=== PATIENT | male | born 1955 | race Caucasian/White ===

== ENCOUNTER 2022-07-20 09:50 | Outpatient (OUT) | payer MEDICARE, MEDICAID, SELFPAY ==
--- NOTE | 2022-07-20 10:35 | MR_ITS ---
[address] [address] Patient Name: NITESH CALZADA MRN: [id number] date: 1955 Sex: M Assigned Patient Location: MRI Current Patient Location: MRI Accession/Order Number: [id number] Exam Date: 07/20/2022 10:45 Report Date: 07/20/2022 11:49 At the request of: ROME VERDUZCO Procedure: MR lumbar spine wo con EXAM: MRI of the lumbar spine without IV gadolinium contrast. REASON FOR EXAM: Acute lumbar back pain with bilateral lower extremity weakness. COMPARISON: CT scan dated 07/31/2018 FINDINGS: No acute lumbar spine fractures, acute malalignment or acute abnormal marrow signal. No spinal canal mass, hematoma or fluid collection. L1 chronic compression fracture with moderate height loss. L2 chronic compression fracture with mild height loss. L4 chronic compression fracture with mild height loss. L2 vertebral body hemangioma. Mild posterior disc bulges at the L1-L2, L2-L3 and L3-L4 levels. Mild L2-L3 and L3-L4 spinal canal stenoses. No other substantial spinal canal stenoses. Mild left L4-5 and L5-S1 neural foraminal stenoses. Mild right L4-5 and L5-S1 neural foraminal stenoses. No other substantial neural foraminal stenoses. Remainder unremarkable. IMPRESSION: 1. No acute lumbar spine abnormalities. 2. Chronic L1, L2 and L4 compression fractures. 3. No moderate or high-grade spinal canal or neural foraminal stenoses. Electronically authenticated by: BELKIS JACOME Date: 07/20/2022 11:49
== END 2022-07-20 09:51 ==
LOC: MRI 09:59
PROVIDERS: PCP Family Medicine; Visit Provider Family Medicine
DX: M99.83 Other biomechanical lesions of lumbar region (principal); M48.56XA Collapsed vertebra, not elsewhere classified, lumbar region, initial encounter for fracture
CPT/HCPCS: 72148

== ENCOUNTER 2022-09-06 16:47 | Inpatient (IN) | payer MEDICARE, MEDICAID, SELFPAY ==
[2022-09-06] VITALS (13 sets, daily range): BP systolic 138–183; BP diastolic 84–113; PULSE 103–125; RESP 18–20; TEMP 36.7–37.1; O2SAT 90–97; BMI 25.6; BMI 24.5
--- NOTE | 2022-09-06 17:00 | ED_ITS ---
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 He states that he fell yesterday was on the floor most the evening and was finally able to get to a cell phone call for assistance today. He lives by himself. He is a patient of Dr. Lopez. He says he normally has some low but left-sided weakness of his left lower extremity from a childhood injury area and he has not had back surgery. He has an abrasion on the dorsal surface of his right ankle he said from dropping a ribbon cleaner or vacuum sweeper on his leg. He's not been able to ambulate at all today and I said lives by himself and was unattended and was incontinent of stool. As noted on his vital signs he is tachycardic and appears acute on chronically ill. His pulse ox ninety-six percent on room air and he does not use supplemental oxygen. He denies any headache or chest pain or difficulty breathing. Says he was too weak to get off the floor. Related Data Home Medications Medication Instructions Recorded Confirmed albuterol sulfate 90 mcg/actuation 2 puff inhalation Q4H PRN 09/06/22 09/06/22 aerosol inhaler (Ventolin HFA) shortness of breath or wheezing alprazolam 0.5 mg tablet 0.5 mg PO TID PRN anxiety 09/06/22 09/06/22 carisoprodol 350 mg tablet 350 mg PO TID PRN muscle pain 09/06/22 09/06/22 fluticasone fur. 100 mcg-umeclid 1 inh inhalation DAILY 09/06/22 09/06/22 62.5 mcg-vilant 25 mcg inhalat.powder (Trelegy Ellipta) hydrocodone 5 mg-acetaminophen 325 1 tab PO Q4H PRN pain 09/06/22 09/06/22 mg tablet pregabalin 300 mg capsule 300 mg PO BID 09/06/22 09/06/22 sacubitril 97 mg-valsartan 103 mg 1 tab PO BID 09/06/22 09/06/22 tablet (Entresto) Allergies Allergy/AdvReac Type Severity Reaction Status Date / Time No Known Drug Allergies Allergy Verified 09/06/22 16:50 Exam Constitutional Vital Signs, click to edit/add: Last Vital Signs Temp 98.7 F 09/06/22 17:24 Pulse 125 H 09/06/22 16:50 Resp 20 09/06/22 16:50 BP 168/104 H 09/06/22 21:15 Pulse Ox 96 09/06/22 16:50 O2 Del Method Room Air 09/06/22 17:25 Course Vital Signs Vital signs: Vital Signs Pulse Rate 125 H 09/06/22 16:50 Respiratory Rate 09/06/22 16:50 Blood Pressure 138/95 H 09/06/22 16:50 Pulse Oximetry 96 09/06/22 16:50 Oxygen Delivery Method Room Air 09/06/22 16:50 Temperature 98.7 F 09/06/22 17:24 Pulse Rate 125 H 09/06/22 16:50 Respiratory Rate 09/06/22 16:50 Blood Pressure 168/104 H 09/06/22 21:15 Pulse Oximetry 96 09/06/22 16:50 Oxygen Delivery Method Room Air 09/06/22 17:25 Medical Decision Making Lab Data Labs: Lab Results 09/06/22 09/06/22 Range/Units 17:25 20:11 WBC 8.0 (4.0-11.0) 10^3/uL RBC 3.70 L (4.70-6.10) 10^6/uL Hgb 13.0 L (14.0-18.0) g/dL Hct 37.8 L (42.0-54.0) % MCV 102.2 H (80.0-94.0) fL MCH 35.1 H (25.9-34.0) pg MCHC 34.4 (29.9-35.2) g/dL RDW 14.0 (11.0-15.0) % Plt Count 121 L (150-450) 10^3/uL MPV 9.8 (9.5-13.5) fL Neut % (Auto) 81.7 H (43.0-75.0) % Lymph % (Auto) 11.6 L (20.5-60.0) % [place] % (Auto) 5.9 (1.7-12.0) % Eos % (Auto) 0.1 L (0.9-7.0) % Baso % (Auto) 0.2 (0.2-2.0) % Neut # (Auto) 6.6 H (1.4-6.5) 10^3/uL Lymph # (Auto) 0.9 L (1.2-3.8) 10^3/uL [place] # (Auto) 0.5 (0.3-0.8) 10^3/uL Eos # (Auto) 0.0 (0.0-0.7) 10^3/uL Baso # (Auto) 0.0 (0.0-0.1) 10^3/uL Abs Immat Gran (auto) 0.04 H (0.00-0.03) 10^3/uL Imm/Tot Granulo (auto) 0.5 (0.0-0.5) % Sodium 129 L (136-145) mmol/L Potassium 3.9 (3.5-5.1) mmol/L Chloride 91 L (98-107) mmol/L Carbon Dioxide 25.5 (21.0-32.0) mmol/L Anion Gap 16.4 BUN 10.0 (7.0-18.0) mg/dL Creatinine 0.98 (0.70-1.30) mg/dL Est GFR ( Amer) >60 (>=60) Est GFR (Non-Af Amer) >60 (>=60) BUN/Creatinine Ratio 10.2 Glucose 92 (74-106) mg/dL Lactate 3.5 H* (0.4-2.0) mmol/L Calcium 9.0 (8.5-10.1) mg/dL Total Bilirubin 1.0 (0.2-1.0) mg/dL AST 47 H (15-37) U/L ALT 55 (16-63) U/L Alkaline Phosphatase 84 (46-116) U/L Total Creatine Kinase 816 H* (39-308) U/L CK-MB (CK-2) 3.24 (<=3.60) ng/mL Myoglobin 320 H* (16-96) ng/mL Troponin I High Sens 13.4 (4.0-76.1) pg/mL Total Protein 7.5 (6.4-8.2) g/dL Albumin 4.1 (3.4-5.0) g/dL Globulin 3.4 g/dL Albumin/Globulin Ratio 1.2 TSH 0.631 (0.358-3.740) uIU/mL Urine Color Lt. yellow (YELLOW) Urine Clarity Clear (CLEAR) Urine pH 6.5 (5.0-9.0) Ur Specific [place] <=1.005 A (1.005-1.025) Urine Protein Negative (NEG/TRACE) mg/dL Urine Glucose (UA) Negative (NEGATIVE) mg/dL Urine Ketones 15 A (NEGATIVE) mg/dL Urine Occult Blood Large A (NEGATIVE) Urine Nitrite Negative (NEGATIVE) Urine Bilirubin Negative (NEGATIVE) Urine Urobilinogen 0.2 (0.2-1.0) EU/dL Ur Leukocyte Esterase Trace A (NEGATIVE) Urine RBC 0-2 (0-2) #/HPF Urine WBC None seen (NONE SEEN) #/HPF Ur Squamous Epith Cells Rare (NONE/RARE) #/LPF Urine Crystals None seen (None Seen) #/HPF Urine Bacteria None seen (NONE SEEN) #/HPF Urine Casts None seen (NONE SEEN) #/LPF Urine Mucus None seen (NONE SEEN) Ur Culture Indicated? No Ethanol Quant <3 mg/dL Discharge Plan Discharge Chief Complaint: Extremity Injury, Lower Clinical Impression: Traumatic hematoma of right ankle, Falls frequently, Weakness, Elevated lactic acid level, Pneumonia Patient Disposition: Admitted As Inpatient Time of Disposition Decision: 21:00 Condition: Good Prescriptions / Home Meds: No Action albuterol sulfate [Ventolin HFA] 90 mcg/actuation HFA aerosol inhaler 2 puff INHALATION Q4H PRN (Reason: shortness of breath or wheezing) alprazolam 0.5 mg tablet 0.5 mg PO TID PRN (Reason: anxiety) carisoprodol 350 mg tablet 350 mg PO TID PRN (Reason: muscle pain) Trelegy Ellipta 100-62.5-25 mcg blister with device 1 inh INHALATION DAILY hydrocodone-acetaminophen 5-325 mg tablet 1 tab PO Q4H PRN (Reason: pain) pregabalin 300 mg capsule 300 mg PO BID Entresto 97-103 mg tablet 1 tab PO BID Documented by User: Sydnie Slater MD 09/06/22 22:34 HPI - General Adult General Chief complaint: Extremity Injury, Lower Stated complaint: FALL Time Seen by Provider: 09/06/22 17:00 Related Data Home Medications Medication Instructions Recorded Confirmed albuterol sulfate 90 mcg/actuation 2 puff inhalation Q4H PRN 09/06/22 09/06/22 aerosol inhaler (Ventolin HFA) shortness of breath or wheezing alprazolam 0.5 mg tablet 0.5 mg PO TID PRN anxiety 09/06/22 09/06/22 carisoprodol 350 mg tablet 350 mg PO TID PRN muscle pain 09/06/22 09/06/22 fluticasone fur. 100 mcg-umeclid 1 inh inhalation DAILY 09/06/22 09/06/22 62.5 mcg-vilant 25 mcg inhalat.powder (Trelegy Ellipta) hydrocodone 5 mg-acetaminophen 325 1 tab PO Q4H PRN pain 09/06/22 09/06/22 mg tablet pregabalin 300 mg capsule 300 mg PO BID 09/06/22 09/06/22 sacubitril 97 mg-valsartan 103 mg 1 tab PO BID 09/06/22 09/06/22 tablet (Entresto) Allergies Allergy/AdvReac Type Severity Reaction Status Date / Time No Known Drug Allergies Allergy Verified 09/06/22 16:50 Exam Constitutional Vital Signs, click to edit/add: Last Vital Signs Temp 98.7 F 09/06/22 17:24 Pulse 125 H 09/06/22 16:50 Resp 20 09/06/22 16:50 BP 168/104 H 09/06/22 21:15 Pulse Ox 96 09/06/22 16:50 O2 Del Method Room Air 09/06/22 17:25 Course Vital Signs Vital signs: Vital Signs Pulse Rate 125 H 09/06/22 16:50 Respiratory Rate 20 09/06/22 16:50 Blood Pressure 138/95 H 09/06/22 16:50 Pulse Oximetry 96 09/06/22 16:50 Oxygen Delivery Method Room Air 09/06/22 16:50 Temperature 98.7 F 09/06/22 17:24 Pulse Rate 125 H 09/06/22 16:50 Respiratory Rate 20 09/06/22 16:50 Blood Pressure 168/104 H 09/06/22 21:15 Pulse Oximetry 96 09/06/22 16:50 Oxygen Delivery Method Room Air 09/06/22 17:25 Medical Decision Making MDM Narrative Medical decision making narrative: Patient signed out to me by Dr. Nieto awaiting CT scan results. Patient's CT scan of the brain is unremarkable. He was given 2 L of normal saline. pt remains weak and is tachycardic. Urinalysis was obtained and unremarkable. The patient was started on Antibiotics for pneumonia. Lactic acid level was repeated and is pending. Patient was discussed with hospitalist for admission. Lab Data Lab results reviewed: Yes I reviewed the patient's lab results Labs: Lab Results 09/06/22 09/06/22 Range/Units 17:25 20:11 WBC 8.0 (4.0-11.0) 10^3/uL RBC 3.70 L (4.70-6.10) 10^6/uL Hgb 13.0 L (14.0-18.0) g/dL Hct 37.8 L (42.0-54.0) % MCV 102.2 H (80.0-94.0) fL MCH 35.1 H (25.9-34.0) pg MCHC 34.4 (29.9-35.2) g/dL RDW 14.0 (11.0-15.0) % Plt Count 121 L (150-450) 10^3/uL MPV 9.8 (9.5-13.5) fL Neut % (Auto) 81.7 H (43.0-75.0) % Lymph % (Auto) 11.6 L (20.5-60.0) % [place] % (Auto) 5.9 (1.7-12.0) % Eos % (Auto) 0.1 L (0.9-7.0) % Baso % (Auto) 0.2 (0.2-2.0) % Neut # (Auto) 6.6 H (1.4-6.5) 10^3/uL Lymph # (Auto) 0.9 L (1.2-3.8) 10^3/uL [place] # (Auto) 0.5 (0.3-0.8) 10^3/uL Eos # (Auto) 0.0 (0.0-0.7) 10^3/uL Baso # (Auto) 0.0 (0.0-0.1) 10^3/uL Abs Immat Gran (auto) 0.04 H (0.00-0.03) 10^3/uL Imm/Tot Granulo (auto) 0.5 (0.0-0.5) % Sodium 129 L (136-145) mmol/L Potassium 3.9 (3.5-5.1) mmol/L Chloride 91 L (98-107) mmol/L Carbon Dioxide 25.5 (21.0-32.0) mmol/L Anion Gap 16.4 BUN 10.0 (7.0-18.0) mg/dL Creatinine 0.98 (0.70-1.30) mg/dL Est GFR ( Amer) >60 (>=60) Est GFR (Non-Af Amer) >60 (>=60) BUN/Creatinine Ratio 10.2 Glucose 92 (74-106) mg/dL Lactate 3.5 H* (0.4-2.0) mmol/L Calcium 9.0 (8.5-10.1) mg/dL Total Bilirubin 1.0 (0.2-1.0) mg/dL AST 47 H (15-37) U/L ALT 55 (16-63) U/L Alkaline Phosphatase 84 (46-116) U/L Total Creatine Kinase 816 H* (39-308) U/L CK-MB (CK-2) 3.24 (<=3.60) ng/mL Myoglobin 320 H* (16-96) ng/mL Troponin I High Sens 13.4 (4.0-76.1) pg/mL Total Protein 7.5 (6.4-8.2) g/dL Albumin 4.1 (3.4-5.0) g/dL Globulin 3.4 g/dL Albumin/Globulin Ratio 1.2 TSH 0.631 (0.358-3.740) uIU/mL Urine Color Lt. yellow (YELLOW) Urine Clarity Clear (CLEAR) Urine pH 6.5 (5.0-9.0) Ur Specific [place] <=1.005 A (1.005-1.025) Urine Protein Negative (NEG/TRACE) mg/dL Urine Glucose (UA) Negative (NEGATIVE) mg/dL Urine Ketones 15 A (NEGATIVE) mg/dL Urine Occult Blood Large A (NEGATIVE) Urine Nitrite Negative (NEGATIVE) Urine Bilirubin Negative (NEGATIVE) Urine Urobilinogen 0.2 (0.2-1.0) EU/dL Ur Leukocyte Esterase Trace A (NEGATIVE) Urine RBC 0-2 (0-2) #/HPF Urine WBC None seen (NONE SEEN) #/HPF Ur Squamous Epith Cells Rare (NONE/RARE) #/LPF Urine Crystals None seen (None Seen) #/HPF Urine Bacteria None seen (NONE SEEN) #/HPF Urine Casts None seen (NONE SEEN) #/LPF Urine Mucus None seen (NONE SEEN) Ur Culture Indicated? No Ethanol Quant <3 mg/dL ECG Data Attestation: I personally reviewed and interpreted this ECG as follows: Discharge Plan Discharge Chief Complaint: Extremity Injury, Lower Clinical Impression: Traumatic hematoma of right ankle, Falls frequently, Weakness, Elevated lactic acid level, Pneumonia Patient Disposition: Admitted As Inpatient Time of Disposition Decision: 21:00 Condition: Good Prescriptions / Home Meds: No Action albuterol sulfate [Ventolin HFA] 90 mcg/actuation HFA aerosol inhaler 2 puff INHALATION Q4H PRN (Reason: shortness of breath or wheezing) alprazolam 0.5 mg tablet 0.5 mg PO TID PRN (Reason: anxiety) carisoprodol 350 mg tablet 350 mg PO TID PRN (Reason: muscle pain) Trelegy Ellipta 100-62.5-25 mcg blister with device 1 inh INHALATION DAILY hydrocodone-acetaminophen 5-325 mg tablet 1 tab PO Q4H PRN (Reason: pain) pregabalin 300 mg capsule 300 mg PO BID Entresto 97-103 mg tablet 1 tab PO BID
--- NOTE | 2022-09-06 17:02 | XR_ITS ---
The [address] [address] Patient Name: NITESH CALZADA MRN: [id number] date: 1955 Sex: M Assigned Patient Location: ER Current Patient Location: ED.MAIN Accession/Order Number: [id number] Exam Date: 09/06/2022 17:45 Report Date: 09/06/2022 18:23 At the request of: MACKENZIE OLIVEIRA Procedure: XR chest 1V EXAM: XR chest 1V HISTORY: weak COMPARISON: None. TECHNIQUE: AP portable study FINDINGS: Kyphotic positioning and relative exhalation phase from the film. There is a mild left basilar infiltrate. No acute right-sided infiltrate is evident. Borderline cardiomegaly is noted. Atherosclerotic aorta without visible aneurysm. Bony structures are unremarkable. Left axillary and left supraclavicular surgical clips are noted. XR/XR chest 1V IMPRESSION: Left basilar infiltrate, likely representing atelectasis. Early pneumonia is not excluded. Electronically authenticated by: Monica MULLEN Date: 09/06/2022 18:23
--- NOTE | 2022-09-06 17:05 | CT_ITS ---
[address] [address] Patient Name: NITESH CALZADA MRN: [id number] date: 1955 Sex: M Assigned Patient Location: ER Current Patient Location: ED.MAIN Accession/Order Number: [id number] Exam Date: 09/06/2022 18:41 Report Date: 09/06/2022 19:46 At the request of: MACKENZIE OLIVEIRA Procedure: CT head/brain wo con EXAMINATION: CT head/brain wo con, 09/06/2022 6:41 PM EDT HISTORY: fall COMPARISON: None. TECHNIQUE: CT scan of the head was performed without IV contrast. CT dose reduction technique was used, including Automated Exposure Control. FINDINGS: BRAIN PARENCHYMA/CSF SPACES: Ventricles are normal in size for age. There is no hemorrhage, mass effect or midline shift. Moderate low attenuation in the white matter consistent with chronic microvascular ischemia. PARANASAL SINUSES: Evidence of prior sinus surgery. The visualized paranasal sinuses are clear. SKULL BASE AND CALVARIUM: Normal. EXTRACRANIAL SOFT TISSUES: Normal. CT/CT head/brain wo con IMPRESSION: 1. No acute intracranial abnormality. 2. Atrophy and chronic white matter small vessel ischemic changes. Electronically authenticated by: CHERYL WILEY Date: 09/06/2022 19:46
--- NOTE | 2022-09-06 17:30 | PC.NURSE ---
Pt was covered in urine and stool at time of arrival to ER. Pt was cleaned by this RN and Tamara RN and clean linens and brief and gown applied. Pt given warm blankets and has no other questions aware that will be in shortly to see him.
[2022-09-06 17:43] LABS: Basophils Percent Auto 0.2 % (0.2-2.0); Eosinophils Percent Auto 0.1 % (0.9-7.0); Hematocrit 37.8 % (42.0-54.0); Immature Granulocytes Abs Auto 0.04 10^3/uL (0.00-0.03); Immature Granulocytes Pct Auto 0.5 % (0.0-0.5); Lymphocytes Absolute Auto 0.9 10^3/uL (1.2-3.8); Lymphocytes Percent Auto 11.6 % (20.5-60.0); Mean Corpuscular HGB Conc 34.4 g/dL (29.9-35.2); Mean Corpuscular Hemoglobin 35.1 pg (25.9-34.0); Mean Corpuscular Volume 102.2 fL (80.0-94.0); Mean Platelet Volume 9.8 fL (9.5-13.5); Monocytes Absolute Auto 0.5 10^3/uL (0.3-0.8); Monocytes Percent Auto 5.9 % (1.7-12.0); Neutrophils Absolute Auto 6.6 10^3/uL (1.4-6.5); Neutrophils Percent Auto 81.7 % (43.0-75.0); Platelet Count 121 10^3/uL (150-450)
[2022-09-06] MEDS: 0.9 % SODIUM CHLORIDE 1,000 ML 999 ML IV ×2 (17:44→19:27)
--- NOTE | 2022-09-06 17:46 | ECG_ITS ---
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
[2022-09-06 18:03] LABS: Lactate/Lactic Acid 3.5 mmol/L (0.4-2.0)
[2022-09-06 18:08] LABS: Alanine Aminotransferase 55 U/L (16-63); Albumin Globulin Ratio 1.2; Albumin Level 4.1 g/dL (3.4-5.0); Alkaline Phosphatase 84 U/L (46-116); Anion Gap 16.4; Aspartate Amino Transferase 47 U/L (15-37); BUN Creatinine Ratio 10.2; Carbon Dioxide 25.5 mmol/L (21.0-32.0); Chloride 91 mmol/L (98-107); Estimated GFR (African America >60 (>=60); Estimated GFR (Non-African Ame >60 (>=60); Globulin 3.4 g/dL; Glucose 92 mg/dL (74-106); Potassium 3.9 mmol/L (3.5-5.1); Sodium 129 mmol/L (136-145); Total Protein 7.5 g/dL (6.4-8.2)
[2022-09-06 18:27] LABS: Creatine Kinase MB 3.24 ng/mL (<=3.60); Thyroid Stimulating Hormone 0.631 uIU/mL (0.358-3.740); Troponin I High Sensitivity 13.4 pg/mL (4.0-76.1)
[2022-09-06 18:35] LABS: Creatine Kinase 816 U/L (39-308); Myoglobin 320 ng/mL (16-96)
[2022-09-06] MEDS: CEFTRIAXONE 1,000 MG in 0.9 % SODIUM CHLORIDE 50 ML 100 MG IV (19:26)
[2022-09-06] MEDS: LEVOFLOXACIN IN DEXTROSE 5 % 750 MG/150 ML IV.SOLN 100 MG IV (20:24)
[2022-09-06 20:37] LABS: Bilirubin Urine NEGATIVE (NEGATIVE); Blood Urine LARGE (NEGATIVE); Clarity Urine CLEAR (CLEAR); Color Urine LT. YELLOW (YELLOW); Glucose Urine UA NEGATIVE (NEGATIVE); Ketones Urine 15 mg/dL (NEGATIVE); Leukocyte Esterase Urine TRACE (NEGATIVE); Nitrite Urine NEGATIVE (NEGATIVE); Protein Urine NEGATIVE (NEG/TRACE); Specific Gravity Urine <=1.005 (1.005-1.025); Urobilinogen Urine 0.2 EU/dL (0.2-1.0); pH Urine 6.5 (5.0-9.0)
[2022-09-06 20:41] LABS: Ethanol <3 mg/dL
[2022-09-06 20:51] LABS: Urine Microscopic Indicated YES
[2022-09-06 20:52] LABS: Bacteria Urine NONE SEEN #/HPF (NONE SEEN); Cast Seen? NONE SEEN #/LPF (NONE SEEN); Crystals Seen? None Seen #/HPF (None Seen); Mucus Urine NONE SEEN (NONE SEEN); RBC Urine 0-2 #/HPF (0-2); Squamous Epithelial Cell Urine RARE #/LPF (NONE/RARE); Urine Culture Indicated NO; WBC Urine NONE SEEN #/HPF (NONE SEEN)
[2022-09-06 22:37] LABS: Lactate/Lactic Acid 1.3 mmol/L (0.4-2.0)
[2022-09-06] MEDS: IPRATROPIUM/ALBUTEROL SULFATE 3 ML AMPUL.NEB IH (23:58)
[2022-09-07] VITALS (8 sets, daily range): BP systolic 94–170; BP diastolic 60–96; PULSE 83–117; RESP 18–24; TEMP 36.6–36.9; O2SAT 87–97; BMI 24.5
--- NOTE | 2022-09-07 00:05 | W.PM.TELEPN ---
Progress Note: Subjective Subjective Interval history: The patient is a 67-year-old male with a history of chronic pain, who was in his usual state of health until the last 24 hours. Apparently he had developed some weakness and falls. He called EMS because he was laying on the ground. Apparently he was found in feces and urine. He denies any shortness of breath or productive cough. He uses his inhalers frequently. He presented to the ED and was noted to have rhabdomyolysis with a CPK of 816. Initial lactate was 3.5. Myoglobin was 320. He received 1 L of IV fluid. X-ray showed pneumonia. He was also noted to have hyponatremia with a sodium of 129. He was started on antibiotics and is being admitted for further evaluation. Exam Narrative Exam Narrative: General : Alert and oriented x3 HEENT : Extraocular movements intact, pupils equal round and reactive to light and accommodation Neck: Supple, no JVD Chest: Clear to auscultation bilaterally, no wheezes Heart: Regular rate and rhythm, S1 and S2 heard Abdomen: Soft nontender nondistended. Extremities: No clubbing cyanosis or edema Neurologically: Moving all 4 extremities Skin: No rashes Constitutional Vital Signs, click to edit/add: Last Vital Signs Temp 98.1 F 09/06/22 22:34 Pulse 117 H 09/07/22 00:03 Resp 24 09/07/22 00:03 BP 154/87 H 09/06/22 22:34 Pulse Ox 97 09/07/22 00:03 O2 Del Method Room Air 09/07/22 00:03 Progress Note: Objective Labs Labs: Short CBC 09/06/22 Range/Units 17:25 WBC 8.0 (4.0-11.0) 10^3/uL Hgb 13.0 L (14.0-18.0) g/dL Hct 37.8 L (42.0-54.0) % Plt Count 121 L (150-450) 10^3/uL BMP 09/06/22 17:25 Sodium 129 L Potassium 3.9 Chloride 91 L Carbon Dioxide 25.5 BUN 10.0 Creatinine 0.98 Glucose 92 Calcium 9.0 Cardiac Enzymes 09/06/22 Range/Units 17:25 Total Creatine Kinase 816 H* (39-308) U/L CK-MB (CK-2) 3.24 (<=3.60) ng/mL Liver Function 09/06/22 Range/Units 17:25 Total Bilirubin 1.0 (0.2-1.0) mg/dL AST 47 H (15-37) U/L ALT 55 (16-63) U/L Alkaline Phosphatase 84 (46-116) U/L Albumin 4.1 (3.4-5.0) g/dL Urine 09/06/22 Range/Units 20:11 Urine Color Lt. yellow (YELLOW) Urine Clarity Clear (CLEAR) Urine pH 6.5 (5.0-9.0) Ur Specific [place] <=1.005 A (1.005-1.025) Urine Protein Negative (NEG/TRACE) mg/dL Urine Glucose (UA) Negative (NEGATIVE) mg/dL Progress Note: A&P Assessment and Plan (1) Falls frequently: (2) Weakness: (3) Pneumonia: Plan The patient is a 67-year-old male with above medical problems, presenting with generalized weakness, found to have hyponatremia and pneumonia. Pneumonia -Likely community-acquired -Provide supportive care -Nebulizers as needed -Rocephin and azithromycin -Oxygen support as needed Mild hyponatremia -Gentle IV fluids with normal saline Nicotine dependence -Provide nicotine patch Rhabdomyolysis -Secondary to fall and lying on the ground -Continue IV fluids -Follow-up CPK in a.m. Generalized weakness -PT evaluation DVT Prophylaxis -Lovenox, SCDs Medication review -Medication reconciliation form completed Goals of care -Full code Communications -Discussed with the emergency room physician -Discussed with the bedside nurse -Verified that daily labs have been ordered, with the laboratory -Patient updated of plan of care, all questions answered to their satisfaction Disposition -Home when medically stable Telemedicine clause -As the provider of this telehealth evaluation, requested by the patient's evaluating physician, I attest that I introduced myself to the patient, provided my credentials and determined that telemedicine via a real-time, two-way interactive audio and video platform is an appropriate and effective means of providing this service. -I reviewed the patient's chart and had a discussion with the member of the patient's treatment team. -The patient and I mutually agreed with continuation of this evaluation via telemedicine. The patient consented for the telemedicine evaluation. -This virtual encounter was taken place from [place], [place]. The encounter was approximately 35 minutes. The nurse was present during the entire time of the encounter and was able to remove the stethoscope and appropriate directions. The patient was evaluated at [facility] Telemedicine Attestation Telemedicine Attestation I conducted [facility] via secure live, [id number] video conference with the patient, located at [facility] with nurse. Prior to the interview, the risks and benefits of telemedicine were discussed with the patient and verbal consent was obtained.
[2022-09-07] MEDS: PREGABALIN 100 MG CAPSULE 300 MG PO ×3 (00:28→20:33)
[2022-09-07] MEDS: CARISOPRODOL 350 MG TABLET PO ×3 (00:28→20:32)
[2022-09-07] MEDS: HYDROCODONE/ACETAMINOPHEN 5-325 MG TABLET 1 TAB PO ×5 (00:28→23:14)
[2022-09-07] MEDS: ALPRAZOLAM 0.5 MG TABLET PO ×3 (00:28→20:32)
[2022-09-07] MEDS: 0.9 % SODIUM CHLORIDE 1,000 ML 100 ML IV ×3 (00:28→20:28)
[2022-09-07] MEDS: SACUBITRIL/VALSARTAN 1 EACH TABLET 4 TAB PO ×3 (00:31→20:33)
[2022-09-07] MEDS: IPRATROPIUM/ALBUTEROL SULFATE 3 ML AMPUL.NEB IH ×3 (04:10→21:20)
[2022-09-07 05:30] LABS: Basophils Percent Auto 0.2 % (0.2-2.0); Hematocrit 31.3 % (42.0-54.0); Hemoglobin 10.8 g/dL (14.0-18.0); Immature Granulocytes Abs Auto 0.03 10^3/uL (0.00-0.03); Immature Granulocytes Pct Auto 0.5 % (0.0-0.5); Lymphocytes Absolute Auto 0.5 10^3/uL (1.2-3.8); Lymphocytes Percent Auto 9.7 % (20.5-60.0); Mean Corpuscular HGB Conc 34.5 g/dL (29.9-35.2); Mean Corpuscular Hemoglobin 35.5 pg (25.9-34.0); Mean Platelet Volume 10.3 fL (9.5-13.5); Monocytes Absolute Auto 0.5 10^3/uL (0.3-0.8); Monocytes Percent Auto 8.1 % (1.7-12.0); Neutrophils Absolute Auto 4.5 10^3/uL (1.4-6.5); Neutrophils Percent Auto 81.5 % (43.0-75.0); Platelet Count 110 10^3/uL (150-450); Red Blood Count 3.04 10^6/uL (4.70-6.10); Red Cell Distribution Width 14.4 % (11.0-15.0); White Blood Count 5.5 10^3/uL (4.0-11.0)
[2022-09-07 05:41] LABS: Anion Gap 11.1; Calcium 8.1 mg/dL (8.5-10.1); Carbon Dioxide 26.6 mmol/L (21.0-32.0); Chloride 102 mmol/L (98-107); Estimated GFR (African America >60 (>=60); Estimated GFR (Non-African Ame >60 (>=60); Glucose 146 mg/dL (74-106); Potassium 3.7 mmol/L (3.5-5.1); Sodium 136 mmol/L (136-145)
[2022-09-07 05:53] LABS: Creatine Kinase 379 U/L (39-308)
[2022-09-07] MEDS: ENOXAPARIN SODIUM 40 MG/0.4 ML SYRINGE SUBQ (08:27)
--- NOTE | 2022-09-07 08:32 | P.HP_ITS ---
H&P: HPI History of Present Illness Chief complaint: FALL Narrative: Patient was seen and evaluated in the emergency room after a fall at home. Unable to get off the floor for about a day. Patient presented to the emergency room with his profound weakness, covered with feces, found to have acute left lower lobe pneumonia with dehydration. Admitted for work-up and treatment of same Review of Systems ROS Constitutional Reports: chills; Denies: fever Cardiovascular Denies: chest pain Respiratory Reports: shortness of breath, cough, wheezing, change in phlegm color and chest congestion Genitourinary Denies: painful urination Musculoskeletal Reports: back pain Neurological Denies: headache PFSH PFS Medical History (Updated 09/06/22 @ 22:59 by Guerline Stern) Family History (Updated 09/06/22 @ 22:59 by Guerline Stern) Uncle Family history of CHF (congestive heart failure) Family history of COPD (chronic obstructive pulmonary disease) Family history of cancer Father Family history of cancer Other Family history of stroke Social History (Updated 09/06/22 @ 23:01 by Guerline Stern) Within the past year, how often did you have a drink containing alcohol: monthly or less Smoking status: Current every day smoker Non-prescribed substance use: denies use Previous occupational history: retired Highest level of school completed/degree received: high school graduate Are you now , , , , never or living with a partner: In a typical week, how many times do you talk on the telephone with family, friends, or neighbors: twice per week How often do you get together with friends or relatives: once per week How often do you attend tenriism or yazdanism services: never Do you belong to any clubs or organizations such as tenriism groups unions, fraternal or athletic groups, or school groups: no Total score: 1 Score interpretation: A score of less than or equal to 1 indicates the most socially isolated. Little interest or pleasure in doing things: not at all Feeling down, depressed, or hopeless: not at all Feel stressed/tense/nervous/anxious/difficulty sleeping: not at all Do you think of yourself as: straight/heterosexual Gender Identity: male Meds Home Medications and Allergies Home Medications Medication Instructions Recorded Confirmed Type albuterol sulfate 90 mcg/actuation 2 puff inhalation Q4H PRN 09/06/22 09/06/22 History aerosol inhaler (Ventolin HFA) shortness of breath or wheezing alprazolam 0.5 mg tablet 0.5 mg PO TID PRN anxiety 09/06/22 09/06/22 History carisoprodol 350 mg tablet 350 mg PO TID PRN muscle pain 09/06/22 09/06/22 History fluticasone fur. 100 mcg-umeclid 1 inh inhalation DAILY 09/06/22 09/06/22 History 62.5 mcg-vilant 25 mcg inhalat.powder (Trelegy Ellipta) hydrocodone 5 mg-acetaminophen 325 1 tab PO Q4H PRN pain 09/06/22 09/06/22 History mg tablet pregabalin 300 mg capsule 300 mg PO BID 09/06/22 09/06/22 History sacubitril 97 mg-valsartan 103 mg 1 tab PO BID 09/06/22 09/06/22 History tablet (Entresto) Allergies Allergy/AdvReac Type Severity Reaction Status Date / Time No Known Drug Allergies Allergy Verified 09/06/22 16:50 Exam Constitutional Vital Signs, click to edit/add: Last Vital Signs Temp 98.4 F 09/07/22 05:13 Pulse 117 H 09/07/22 05:13 Resp 20 09/07/22 05:13 BP 94/60 09/07/22 05:13 Pulse Ox 91 L 09/07/22 06:07 O2 Del Method Nasal Cannula 09/07/22 06:07 O2 Flow Rate 2 09/07/22 06:07 Documenting provider has reviewed patient's vital signs: yes Common normals: apparent distress General appearance: not comfortable Nutritional appearance: thin Respiratory Common normals: abnormal respiratory effort Effort & inspection: respiratory distress and actively coughing Auscultation: rhonchi, wheezes, diminished lung sounds and egophony left lower Cardio Common normals: no murmurs Rate: tachycardic GI Common normals: Normal to inspection, nondistended, normoactive bowel sounds present Results Labs Labs: Short CBC 09/06/22 09/07/22 Range/Units 17:25 04:56 WBC 8.0 5.5 (4.0-11.0) 10^3/uL Hgb 13.0 L 10.8 L (14.0-18.0) g/dL Hct 37.8 L 31.3 L (42.0-54.0) % Plt Count 121 L 110 L (150-450) 10^3/uL BMP 09/06/22 09/07/22 17:25 04:56 Sodium 129 L 136 Potassium 3.9 3.7 Chloride 91 L 102 Carbon Dioxide 25.5 26.6 BUN 10.0 12.0 Creatinine 0.98 0.80 Glucose 92 146 H Calcium 9.0 8.1 L Cardiac Enzymes 09/06/22 09/07/22 Range/Units 17:25 04:56 Total Creatine Kinase 816 H* 379 H* (39-308) U/L CK-MB (CK-2) 3.24 (<=3.60) ng/mL Liver Function 09/06/22 Range/Units 17:25 Total Bilirubin 1.0 (0.2-1.0) mg/dL AST 47 H (15-37) U/L ALT 55 (16-63) U/L Alkaline Phosphatase 84 (46-116) U/L Albumin 4.1 (3.4-5.0) g/dL Urine 09/06/22 Range/Units 20:11 Urine Color Lt. yellow (YELLOW) Urine Clarity Clear (CLEAR) Urine pH 6.5 (5.0-9.0) Ur Specific [place] <=1.005 A (1.005-1.025) Urine Protein Negative (NEG/TRACE) mg/dL Urine Glucose (UA) Negative (NEGATIVE) mg/dL Assessment and Plan Assessment and Plan (1) Falls frequently: (2) Weakness: (3) Pneumonia: (4) Traumatic hematoma of right ankle: (5) Elevated lactic acid level: (6) Cardiomyopathy: (7) COPD (chronic obstructive pulmonary disease): (8) Hiatal hernia with GERD: (9) High blood pressure: (10) History of fractured vertebra: Plan Sinus tachycardia, uncontrolled hypertension, profound weakness secondary to dehydration secondary to fall secondary to left lower lobe pneumonia with acute hypoxia positivbe lacteate leading to severe sepsis (Tachycardia, resp distress, lung infection and positive lactate). this is causing acute exacerbation of his COPD. Antibiotics, steroids, try to get sputum sample, frequent aerosols, consider repeating chest x-ray. Dehydration-given significant fluids in ER, is better today with his sodium.Does not appear to be dehydrated today we will hold off on further fluids secondary to history of cardiomyopathy Hyponatremia-secondary to dehydration-resolved Thrombocytopenia-likely secondary to the above-monitor daily Hyperglycemia-likely again to be higher with the use of steroids, add insulin sliding scale Rhabdomyolysis-secondary to the weakness and being on the floor for 24 hours. Monitor daily. So far kidney function not affected. History of cardiomyopathy-secondary to [place]-unable to give aggressive fluid management but so far is tolerating Well,Blood pressure little bit low this morning we will need to monitor medications Low back pain-this is chronic for him, continue with current medication Left ankle abrasion-leg wound management monitor some swelling, antibiotics for the above should cover Urinalysis-positive for blood and leukocyte Estrace-we will obtain culture, antibiotics for the above should cover Continue patient as inpatient status. Review from admission and patient's condition deteriorated now requiring supplemental oxygen will likely be here 2-3 hospital days.
[2022-09-07] MEDS: METHYLPREDNISOLONE SOD SUCC PF 125 MG/2 ML VIAL IVP ×3 (08:47→20:32)
[2022-09-07] MEDS: AZITHROMYCIN 500 MG in 0.9 % SODIUM CHLORIDE 250 ML 250 MG IV (08:59)
--- NOTE | 2022-09-07 10:32 | SWNOTE1 ---
JALEN met with pt to discuss dc needs. Pt lives at home by himself in an apartment, he has a neighbor upstairs. He stated he pays his neighbor to get him groceries sometimes, he also walks to the store as well with his walker. Pt was at the store yesterday and fell and then the police followed him home and the ambulance came, he told them he was alright and they left. Pt then fell at home and had to get to his phone. Pt states he is feeling better now. He voiced he did work with therapy here and walked to chair from the bed with the walker. SW asked pt about his sister and she still checks on him. He stated not really, she is busy. SW asked about any other support, he does not have any. JALEN and pt spoke about home health coming in, some therapy and nursing. He stated nursing would just take blood pressure. SW expressed to pt he would benefit from therapy at home as well to get him stronger. Pt did agree at this time. JALEN did review the star rating list from medicare.gov, pt did not have a preference. JALEN sent referral to [address]
--- NOTE | 2022-09-07 10:53 | SWNOTE1 ---
Pt does not wear home oxygen.
--- NOTE | 2022-09-07 11:16 | SWNOTE1 ---
SW reviewed IMM form with pt, he voiced understanding, no questions. Pt signed form, original given to pt and copy placed in chart.
[2022-09-07 11:26] LABS: Glucometer 189 mg/dL (74-106)
[2022-09-07] MEDS: INSULIN ASPART 300 UNIT/3 ML PEN SUBQ ×3 (11:40→21:13)
--- NOTE | 2022-09-07 12:53 | P.CN_ITS ---
Consult Note: [facility] Data of Consult Consult date: 09/07/22 Requesting Physician: Alyson Mcneal DO Primary Care Provider: Napoleon Haywood MD Consult Narrative Reason for consult: left knee abrasion, right lower leg hematoma cc:: CC: Alyson Mcneal DO [facility] Medical History (Updated 09/06/22 @ 22:59 by Guerline Stern) Family History (Updated 09/06/22 @ 22:59 by Guerline Stern) Uncle Family history of CHF (congestive heart failure) Family history of COPD (chronic obstructive pulmonary disease) Family history of cancer Father Family history of cancer Other Family history of stroke Social History (Updated 09/06/22 @ 23:01 by Guerline Stern) Within the past year, how often did you have a drink containing alcohol: monthly or less Smoking status: Current every day smoker Non-prescribed substance use: denies use Previous occupational history: retired Highest level of school completed/degree received: high school graduate Are you now , , , , never or living with a partner: In a typical week, how many times do you talk on the telephone with family, friends, or neighbors: twice per week How often do you get together with friends or relatives: once per week How often do you attend religion or alevism services: never Do you belong to any clubs or organizations such as religion groups unions, [employer] or athletic groups, or school groups: no Total score: 1 Score interpretation: A score of less than or equal to 1 indicates the most socially isolated. Little interest or pleasure in doing things: not at all Feeling down, depressed, or hopeless: not at all Feel stressed/tense/nervous/anxious/difficulty sleeping: not at all Do you think of yourself as: straight/heterosexual Gender Identity: male Meds Home Medications and Allergies Home Medications Medication Instructions Recorded Confirmed Type albuterol sulfate 90 mcg/actuation 2 puff inhalation Q4H PRN 09/06/22 09/06/22 History aerosol inhaler (Ventolin HFA) shortness of breath or wheezing alprazolam 0.5 mg tablet 0.5 mg PO TID PRN anxiety 09/06/22 09/06/22 History carisoprodol 350 mg tablet 350 mg PO TID PRN muscle pain 09/06/22 09/06/22 History fluticasone fur. 100 mcg-umeclid 1 inh inhalation DAILY 09/06/22 09/06/22 History 62.5 mcg-vilant 25 mcg inhalat.powder (Trelegy Ellipta) hydrocodone 5 mg-acetaminophen 325 1 tab PO Q4H PRN pain 09/06/22 09/06/22 History mg tablet pregabalin 300 mg capsule 300 mg PO BID 09/06/22 09/06/22 History sacubitril 97 mg-valsartan 103 mg 1 tab PO BID 09/06/22 09/06/22 History tablet (Entresto) Allergies Allergy/AdvReac Type Severity Reaction Status Date / Time No Known Drug Allergies Allergy Verified 09/06/22 16:50 Exam Constitutional Vital Signs, click to edit/add: Last Vital Signs Temp 98.4 F 09/07/22 05:13 Pulse 117 H 09/07/22 05:13 Resp 20 09/07/22 05:13 BP 94/60 09/07/22 05:13 Pulse Ox 91 L 09/07/22 06:07 O2 Del Method Nasal Cannula 09/07/22 06:07 O2 Flow Rate 2 09/07/22 06:07 Results Labs Labs: Short CBC 09/06/22 09/07/22 Range/Units 17:25 04:56 WBC 8.0 5.5 (4.0-11.0) 10^3/uL Hgb 13.0 L 10.8 L (14.0-18.0) g/dL Hct 37.8 L 31.3 L (42.0-54.0) % Plt Count 121 L 110 L (150-450) 10^3/uL BMP 09/06/22 09/07/22 17:25 04:56 Sodium 129 L 136 Potassium 3.9 3.7 Chloride 91 L 102 Carbon Dioxide 25.5 26.6 BUN 10.0 12.0 Creatinine 0.98 0.80 Glucose 92 146 H Calcium 9.0 8.1 L Cardiac Enzymes 09/06/22 09/07/22 Range/Units 17:25 04:56 Total Creatine Kinase 816 H* 379 H* (39-308) U/L CK-MB (CK-2) 3.24 (<=3.60) ng/mL Liver Function 09/06/22 Range/Units 17:25 Total Bilirubin 1.0 (0.2-1.0) mg/dL AST 47 H (15-37) U/L ALT 55 (16-63) U/L Alkaline Phosphatase 84 (46-116) U/L Albumin 4.1 (3.4-5.0) g/dL Urine 09/06/22 Range/Units 20:11 Urine Color Lt. yellow (YELLOW) Urine Clarity Clear (CLEAR) Urine pH 6.5 (5.0-9.0) Ur Specific [place] <=1.005 A (1.005-1.025) Urine Protein Negative (NEG/TRACE) mg/dL Urine Glucose (UA) Negative (NEGATIVE) mg/dL Assessment and Plan Assessment and Plan (1) Falls frequently: (2) Weakness: (3) Pneumonia: (4) Traumatic hematoma of right ankle: Assessment and Plan: Updated Dr. Nicola Chaney on patient's hematoma. He will be in to see the patient later today. Medihoney gel and bandaid placed on patient's left knee abrasion. Photos added. Orders and note sent to Dr. Mcneal for review. (5) Elevated lactic acid level: (6) Cardiomyopathy: (7) COPD (chronic obstructive pulmonary disease): (8) Hiatal hernia with GERD: (9) High blood pressure: (10) History of fractured vertebra: Plan Sinus tachycardia, uncontrolled hypertension, profound weakness secondary to dehydration secondary to fall secondary to left lower lobe pneumonia with acute hypoxia positivbe lacteate leading to severe sepsis (Tachycardia, resp distress, lung infection and positive lactate). this is causing acute exacerbation of his COPD. Antibiotics, steroids, try to get sputum sample, frequent aerosols, consider repeating chest x-ray. Dehydration-given significant fluids in ER, is better today with his sodium.Does not appear to be dehydrated today we will hold off on further fluids secondary to history of cardiomyopathy Hyponatremia-secondary to dehydration-resolved Thrombocytopenia-likely secondary to the above-monitor daily Hyperglycemia-likely again to be higher with the use of steroids, add insulin sliding scale Rhabdomyolysis-secondary to the weakness and being on the floor for 24 hours. Monitor daily. So far kidney function not affected. History of cardiomyopathy-secondary to [place]-unable to give aggressive fluid management but so far is tolerating Well,Blood pressure little bit low this morning we will need to monitor medications Low back pain-this is chronic for him, continue with current medication Left ankle abrasion-leg wound management monitor some swelling, antibiotics for the above should cover Urinalysis-positive for blood and leukocyte Estrace-we will obtain culture, antibiotics for the above should cover Continue patient as inpatient status. Review from admission and patient's condition deteriorated now requiring supplemental oxygen will likely be here 2-3 hospital days.
--- NOTE | 2022-09-07 14:21 | SWNOTE1 ---
[facility] is able to accept. SW updated nursing and pt.
[2022-09-07 16:12] LABS: Glucometer 176 mg/dL (74-106)
[2022-09-07 19:56] LABS: Glucometer 176 mg/dL (74-106)
[2022-09-07] MEDS: CEFTRIAXONE 1,000 MG in 0.9 % SODIUM CHLORIDE 50 ML 100 MG IV (20:33)
[2022-09-07] MEDS: BUDESONIDE 0.5 MG/2 ML AMPULE NEB IH (21:20)
[2022-09-08] VITALS (8 sets, daily range): BP systolic 152–165; BP diastolic 78–92; PULSE 80–102; RESP 18–20; TEMP 36.5–36.9; O2SAT 93–96
[2022-09-08] MEDS: METHYLPREDNISOLONE SOD SUCC PF 125 MG/2 ML VIAL IVP ×2 (02:46→09:33)
[2022-09-08] MEDS: IPRATROPIUM/ALBUTEROL SULFATE 3 ML AMPUL.NEB IH ×4 (05:02→22:02)
[2022-09-08 05:14] LABS: Hematocrit 30.8 % (42.0-54.0); Hemoglobin 10.2 g/dL (14.0-18.0); Immature Granulocytes Abs Auto 0.06 10^3/uL (0.00-0.03); Immature Granulocytes Pct Auto 0.8 % (0.0-0.5); Lymphocytes Absolute Auto 0.4 10^3/uL (1.2-3.8); Lymphocytes Percent Auto 5.6 % (20.5-60.0); Mean Corpuscular HGB Conc 33.1 g/dL (29.9-35.2); Mean Corpuscular Hemoglobin 35.5 pg (25.9-34.0); Mean Corpuscular Volume 107.3 fL (80.0-94.0); Mean Platelet Volume 10.4 fL (9.5-13.5); Monocytes Absolute Auto 0.2 10^3/uL (0.3-0.8); Monocytes Percent Auto 2.2 % (1.7-12.0); Neutrophils Percent Auto 91.4 % (43.0-75.0); Platelet Count 106 10^3/uL (150-450); Red Blood Count 2.87 10^6/uL (4.70-6.10); White Blood Count 7.6 10^3/uL (4.0-11.0)
[2022-09-08] MEDS: HYDROCODONE/ACETAMINOPHEN 5-325 MG TABLET 1 TAB PO ×4 (05:24→18:38)
[2022-09-08 05:29] LABS: Anion Gap 11.4; BUN Creatinine Ratio 19.4; Calcium 7.6 mg/dL (8.5-10.1); Carbon Dioxide 26.5 mmol/L (21.0-32.0); Chloride 104 mmol/L (98-107); Estimated GFR (African America >60 (>=60); Estimated GFR (Non-African Ame >60 (>=60); Glucose 139 mg/dL (74-106); Potassium 3.9 mmol/L (3.5-5.1); Sodium 138 mmol/L (136-145)
[2022-09-08 05:38] LABS: Creatine Kinase 221 U/L (39-308)
[2022-09-08] MEDS: 0.9 % SODIUM CHLORIDE 1,000 ML 100 ML IV ×2 (06:47→17:12)
[2022-09-08] MEDS: SACUBITRIL/VALSARTAN 1 EACH TABLET 4 TAB PO ×2 (09:32→21:10)
[2022-09-08] MEDS: PREGABALIN 100 MG CAPSULE 300 MG PO ×2 (09:32→21:10)
[2022-09-08] MEDS: CARISOPRODOL 350 MG TABLET PO ×2 (09:33→21:10)
[2022-09-08] MEDS: ALPRAZOLAM 0.5 MG TABLET PO ×2 (09:33→21:10)
[2022-09-08] MEDS: ENOXAPARIN SODIUM 40 MG/0.4 ML SYRINGE SUBQ (09:33)
[2022-09-08] MEDS: AZITHROMYCIN 500 MG in 0.9 % SODIUM CHLORIDE 250 ML 250 MG IV (09:39)
--- NOTE | 2022-09-08 10:01 | P.PN_ITS ---
Progress Note: Subjective Subjective Interval history: Patient feels better with his breathing today Exam Constitutional Vital Signs, click to edit/add: Last Vital Signs Temp 97.7 F 09/08/22 04:34 Pulse 80 09/08/22 05:05 Resp 18 09/08/22 05:05 BP 165/92 H 09/08/22 04:34 Pulse Ox 96 09/08/22 05:05 O2 Del Method Nasal Cannula 09/08/22 05:05 O2 Flow Rate 1 09/08/22 05:05 Documenting provider has reviewed patient's vital signs: yes Common normals: apparent distress General appearance: not comfortable Nutritional appearance: thin Respiratory Common normals: abnormal respiratory effort Effort & inspection: respiratory distress and actively coughing Auscultation: rhonchi, wheezes (Improved from previous day), diminished lung sounds and egophony left lower Cardio Common normals: no murmurs Rate: tachycardic GI Common normals: Normal to inspection, nondistended, normoactive bowel sounds present Progress Note: Objective Labs Labs: Short CBC 09/08/22 Range/Units 04:41 WBC 7.6 (4.0-11.0) 10^3/uL Hgb 10.2 L (14.0-18.0) g/dL Hct 30.8 L (42.0-54.0) % Plt Count 106 L (150-450) 10^3/uL BMP 09/08/22 04:41 Sodium 138 Potassium 3.9 Chloride 104 Carbon Dioxide 26.5 BUN 13.0 Creatinine 0.67 L Glucose 139 H Calcium 7.6 L Cardiac Enzymes 09/08/22 Range/Units 04:41 Total Creatine Kinase 221 (39-308) U/L Progress Note: A&P Assessment and Plan (1) Falls frequently: (2) Weakness: (3) Pneumonia: (4) Traumatic hematoma of right ankle: (5) Elevated lactic acid level: (6) Cardiomyopathy: (7) COPD (chronic obstructive pulmonary disease): (8) Hiatal hernia with GERD: (9) High blood pressure: (10) History of fractured vertebra: Plan Sinus tachycardia, uncontrolled hypertension with hypertensive urgency, profound weakness secondary to dehydration secondary to fall secondary to left lower lobe pneumonia with acute hypoxia positivbe lacteate leading to severe sepsis (Tachycardia, resp distress, lung infection and positive lactate). ? this is causing acute exacerbation of his COPD.? Maintain current medications , decrease steroids today Dehydration- improved. Hyponatremia- resolved. Thrombocytopenia- down somewhat today. Hyperglycemia-likely again to be higher with the use of steroids, add insulin sliding scale-cutting back on steroids today Rhabdomyolysis-secondary to the weakness and being on the floor for 24 hours.? CK is normal today History of cardiomyopathy-secondary to [place]-unable to give aggressive fluid management but so far is tolerating Well,Blood pressure little bit low this morning we will need to monitor medications Low back pain-this is chronic for him, continue with current medication Left ankle abrasion-leg wound management monitor some swelling, antibiotics for the above should cover Urinalysis-positive for blood and leukocyte Estrace-we will obtain culture, antibiotics for the above should cover iron deficiency anemia-down somewhat today, continue to monitor hypocalcemia-supplement Continue patient as inpatient status.? Review from admission and patient's condition deteriorated now requiring supplemental oxygen will likely be here 2-3 hospital days.
[2022-09-08] MEDS: BUDESONIDE 0.5 MG/2 ML AMPULE NEB IH ×2 (11:00→22:02)
[2022-09-08 11:18] LABS: Glucometer 185 mg/dL (74-106)
--- NOTE | 2022-09-08 11:21 | REH.PTDLY ---
Physical Therapy Daily Note PT Daily Note/Assess Start: 09/08/22 11:15 Freq: Status: Active Protocol: Document 09/08/22 09:55 TERRANCELEXIE (Rec: 09/08/22 11:21 KSTEINANA [id number]) Physical Therapy Daily Note/Assessment Time In 09:26 Time Out 09:40 Subjective Pt seen once and then seen again from 9:55-10:05 for assistance to bathroom. No complaints today, pt wearing 1 L of O2 but nursing reports it can be removed. Pt at 94% before rx. Therapeutic Exercise Minutes (minutes) 7 Therapeutic Exercise Units 1 Therapeutic Exercise Treatment Instructed in B LE seated exs 10-12x ea for improved strength for ease of transfers and gait. Therapeutic Activity Minutes (minutes) 16 Therapeutic Activity Units 1 Bed Mobility Ability Standby Assistance Chair Transfer Ability Contact Guard Assist Therapeutic Activity Comments Pt able to transfer supine to sit SBA. Sit to stand transfers CGA. Gait training with RW 35 feet in room CGA for safety as pt shuffles feet at times. Cues for reaching back for chair when sitting down. Nursing in room with pt. Pt then has to use restroom about 15 mins later, Gait 20 feet x 2 with RW CGA. CGA with toilet transfers for safety with pt using grab bar on wall . Total Therapy Minutes 23 Total Physical Therapy Units 2 Daily Note Summary Progressed gait distance today with RW with fatigue noted. Pt would be a good candidate for rehab but he states he cannot go at this time as he has to get things done at his apartment or he will lose it and he cannot afford that. Pt prefers at this time.
[2022-09-08] MEDS: INSULIN ASPART 300 UNIT/3 ML PEN SUBQ ×2 (12:43→17:13)
[2022-09-08] MEDS: CALCIUM CARBONATE 500 MG (200MG ELEMENTAL) TAB CHEW PO ×2 (12:44→17:12)
[2022-09-08] MEDS: METHYLPREDNISOLONE SOD SUCC PF 125 MG/2 ML VIAL 60 MG IVP ×2 (14:02→21:10)
[2022-09-08] MEDS: CLONIDINE HCL 0.1 MG TABLET PO ×2 (14:03→21:10)
[2022-09-08 16:26] LABS: Glucometer 180 mg/dL (74-106)
[2022-09-08] MEDS: CEFTRIAXONE 1,000 MG in 0.9 % SODIUM CHLORIDE 50 ML 100 MG IV (19:49)
[2022-09-08 21:11] LABS: Glucometer 153 mg/dL (74-106)
[2022-09-09] MEDS: METHYLPREDNISOLONE SOD SUCC PF 125 MG/2 ML VIAL 60 MG IVP ×2 (02:51→08:16)
[2022-09-09] MEDS: 0.9 % SODIUM CHLORIDE 1,000 ML 100 ML IV (02:52)
[2022-09-09] MEDS: HYDROCODONE/ACETAMINOPHEN 5-325 MG TABLET 1 TAB PO ×3 (02:53→12:30)
[2022-09-09 04:56] LABS: Hematocrit 30.4 % (42.0-54.0); Hemoglobin 9.9 g/dL (14.0-18.0); Immature Granulocytes Pct Auto 1.6 % (0.0-0.5); Lymphocytes Absolute Auto 0.3 10^3/uL (1.2-3.8); Lymphocytes Percent Auto 4.8 % (20.5-60.0); Mean Corpuscular HGB Conc 32.6 g/dL (29.9-35.2); Mean Corpuscular Hemoglobin 34.9 pg (25.9-34.0); Mean Platelet Volume 10.1 fL (9.5-13.5); Monocytes Absolute Auto 0.2 10^3/uL (0.3-0.8); Monocytes Percent Auto 3.3 % (1.7-12.0); Neutrophils Absolute Auto 5.8 10^3/uL (1.4-6.5); Neutrophils Percent Auto 90.3 % (43.0-75.0); Platelet Count 125 10^3/uL (150-450); Red Blood Count 2.84 10^6/uL (4.70-6.10); White Blood Count 6.4 10^3/uL (4.0-11.0)
[2022-09-09] MEDS: CLONIDINE HCL 0.1 MG TABLET PO ×2 (05:03→13:17)
[2022-09-09 05:08] LABS: BUN Creatinine Ratio 20.6; Calcium 7.4 mg/dL (8.5-10.1); Carbon Dioxide 24.8 mmol/L (21.0-32.0); Chloride 106 mmol/L (98-107); Estimated GFR (African America >60 (>=60); Estimated GFR (Non-African Ame >60 (>=60); Glucose 144 mg/dL (74-106); Potassium 3.8 mmol/L (3.5-5.1); Sodium 139 mmol/L (136-145)
[2022-09-09 05:24] LABS: Creatine Kinase 95 U/L (39-308)
[2022-09-09 05:41] VITALS: PULSE 85; RESP 18; O2SAT 95
[2022-09-09] MEDS: IPRATROPIUM/ALBUTEROL SULFATE 3 ML AMPUL.NEB IH ×2 (05:42→10:21)
[2022-09-09 05:46] VITALS: BP 167/89; PULSE 85; RESP 18; TEMP 36.6; O2SAT 95
[2022-09-09] MEDS: INSULIN ASPART 300 UNIT/3 ML PEN SUBQ (07:20)
[2022-09-09] MEDS: ALPRAZOLAM 0.5 MG TABLET PO (07:25)
[2022-09-09] MEDS: CARISOPRODOL 350 MG TABLET PO (07:25)
[2022-09-09 07:30] LABS: Glucometer 150 mg/dL (74-106)
[2022-09-09] MEDS: CALCIUM CARBONATE 500 MG (200MG ELEMENTAL) TAB CHEW PO ×2 (08:16→12:30)
[2022-09-09] MEDS: SACUBITRIL/VALSARTAN 1 EACH TABLET 4 TAB PO (08:16)
[2022-09-09] MEDS: PREGABALIN 100 MG CAPSULE 300 MG PO (08:16)
[2022-09-09] MEDS: ENOXAPARIN SODIUM 40 MG/0.4 ML SYRINGE SUBQ (08:16)
[2022-09-09] MEDS: AZITHROMYCIN 500 MG in 0.9 % SODIUM CHLORIDE 250 ML 250 MG IV (08:16)
[2022-09-09 08:21] VITALS: RESP 18
[2022-09-09] MEDS: BUDESONIDE 0.5 MG/2 ML AMPULE NEB IH (10:21)
--- NOTE | 2022-09-09 10:23 | P.DS_ITS ---
DS: Providers Provider Date of admission: 09/07/22 08:24 Primary care physician: Napoleon Haywood MD Consults: 09/06/22 23:18 Physical Therapy Eval and Treat Routine DS: Diagnosis Discharge Diagnosis (1) Falls frequently: (2) Weakness: (3) Pneumonia: (4) Traumatic hematoma of right ankle: (5) Elevated lactic acid level: (6) Cardiomyopathy: (7) COPD (chronic obstructive pulmonary disease): (8) Hiatal hernia with GERD: (9) High blood pressure: (10) History of fractured vertebra: Plan Sinus tachycardia, uncontrolled hypertension with hypertensive urgency, profound weakness secondary to dehydration secondary to fall secondary to left lower lobe pneumonia with acute hypoxia positivbe lacteate leading to severe sepsis (Tachycardia, resp distress, lung infection and positive lactate). ? this is causing acute exacerbation of his COPD.? Dehydration Hyponatremia Thrombocytopenia Hyperglycemia Rhabdomyolysis History of cardiomyopathy Low back pain Left ankle abrasion Urinalysis-positive for blood and leukocyte Estrace iron deficiency anemia hypocalcemia DS: Summary Hospital Course Hospital Course: Patient admitted with Sinus tachycardia, uncontrolled hypertension with hypertensive urgency, profound weakness secondary to dehydration secondary to fall secondary to left lower lobe pneumonia with acute hypoxia positivbe lacteate leading to severe sepsis (Tachycardia, resp distress, lung infection and positive lactate). ? this is causing acute exacerbation of his COPD.? Treat with IV antibiotics, steroids, frequent aerosols. Patient actually improved more rapidly than anticipated. He is able to ambulate as he was previously. Dyspnea is much improved. He will be discharged home in improving condition. Medications see list. I will see patient in the office within the next few days. Status at Discharge Functional status at discharge: uses cane/walker Time Spent with Patient Time attestation: Total time spent providing and/or coordinating discharge services: Exam Constitutional Vital Signs, click to edit/add: Last Vital Signs Temp 98 F 09/09/22 05:46 Pulse 85 09/09/22 05:46 Resp 18 09/09/22 08:21 BP 167/89 H 09/09/22 05:46 Pulse Ox 95 09/09/22 05:46 O2 Del Method Room Air 09/09/22 05:46 O2 Flow Rate 1 09/08/22 05:05 Documenting provider has reviewed patient's vital signs: yes Common normals: apparent distress General appearance: not comfortable Nutritional appearance: thin Respiratory Common normals: normal respiratory effort, no use of accessory muscles and clear to auscultation bilaterally Effort & inspection: actively coughing; no respiratory distress Auscultation: diminished lung sounds Cardio Common normals: no murmurs Rate: tachycardic GI Common normals: Normal to inspection, nondistended, normoactive bowel sounds present DS: Data Data Completed and Pending Labs on day of discharge: Labs from last 24 hours 09/09/22 09/09/22 09/08/22 07:18 04:34 21:09 WBC 6.4 RBC 2.84 L Hgb 9.9 L Hct 30.4 L MCV 107.0 H MCH 34.9 H MCHC 32.6 RDW 15.0 Plt Count 125 L MPV 10.1 Neut % (Auto) 90.3 H Lymph % (Auto) 4.8 L [place] % (Auto) 3.3 Eos % (Auto) 0.0 L Baso % (Auto) 0.0 L Neut # (Auto) 5.8 Lymph # (Auto) 0.3 L [place] # (Auto) 0.2 L Eos # (Auto) 0.0 Baso # (Auto) 0.0 Abs Immat Gran (auto) 0.10 H Imm/Tot Granulo (auto) 1.6 H Sodium 139 Potassium 3.8 Chloride 106 Carbon Dioxide 24.8 Anion Gap 12.0 BUN 14.0 Creatinine 0.68 L Est GFR ( Amer) >60 Est GFR (Non-Af Amer) >60 BUN/Creatinine Ratio 20.6 Glucose 144 H Calcium 7.4 L Total Creatine Kinase 95 POC Glucose 150 H 153 H 09/08/22 09/08/22 16:25 11:18 WBC RBC Hgb Hct MCV MCH MCHC RDW Plt Count MPV Neut % (Auto) Lymph % (Auto) [place] % (Auto) Eos % (Auto) Baso % (Auto) Neut # (Auto) Lymph # (Auto) [place] # (Auto) Eos # (Auto) Baso # (Auto) Abs Immat Gran (auto) Imm/Tot Granulo (auto) Sodium Potassium Chloride Carbon Dioxide Anion Gap BUN Creatinine Est GFR ( Amer) Est GFR (Non-Af Amer) BUN/Creatinine Ratio Glucose Calcium Total Creatine Kinase POC Glucose 180 H 185 H Preliminary micro results at discharge 09/07/22 11:25 Sputum Culture - Preliminary Sputum - Expectorated Sputum 09/06/22 17:33 Blood Culture Result 1 - Preliminary Blood 09/06/22 17:25 Blood Culture Result 1 - Preliminary Blood Discharge Plan Discharge Disposition: Home Health Service Condition: Serious Discharge Medications: New clonidine HCl 0.1 mg Tablet 0.1 mg PO TID Qty: 90 11RF prednisone 10 mg tablet 50 mg PO DAILY Qty: 47 0RF Rx Instructions: 5/day for 3 days. 4/day for 3 days, 3/day for 3 days, 2/day for 3 days, 1/day for 3 days, 1/2 /day for 4 days cefdinir 300 mg capsule 600 mg PO DAILY 10 Days Qty: 20 0RF Continued albuterol sulfate [Ventolin HFA] 90 mcg/actuation HFA aerosol inhaler 2 puff INHALATION Q4H PRN (Reason: shortness of breath or wheezing) alprazolam 0.5 mg tablet 0.5 mg PO TID PRN (Reason: anxiety) carisoprodol 350 mg tablet 350 mg PO TID PRN (Reason: muscle pain) Trelegy Ellipta 100-62.5-25 mcg blister with device 1 inh INHALATION DAILY hydrocodone-acetaminophen 5-325 mg tablet 1 tab PO Q4H PRN (Reason: pain) pregabalin 300 mg capsule 300 mg PO BID Entresto 97-103 mg tablet 1 tab PO BID Activity: resume usual activities as tolerated Diet: advance to your usual diet Patient Instructions: Pneumonia (DC) Clip Wrapper/Sales Engagement Manager Instructions: Discharge home with [address], they will make first visit on Saturday09/10/22. Phone number is [phone]. Forms: Portal Instructions Follow Up Appointments: Call Dr Haywood on Saturday to schedule follow up appt [phone] Discharge Date/Time: 09/09/22 14:16
[2022-09-09 10:24] VITALS: PULSE 106; RESP 16; O2SAT 95
[2022-09-09 13:17] VITALS: BP 151/82
[2022-09-09 13:20] VITALS: BP 151/82; PULSE 99; RESP 18; TEMP 36.8; O2SAT 93
--- NOTE | 2022-09-09 17:23 | P.PODCN_ITS ---
[facility] - Podiatry Data of Consult Patient: new to practice Consult date: 09/07/22 Requesting physician: Alyson Mcneal DO Primary care provider: Napoleon Haywood MD Consult Narrative Reason for consult: Right tibial hematoma Narrative: Patient is a 67 year old gentleman seen on 09/07/22 for his right anterior leg hematoma. Past medical history consistent with anxiety, high blood pressure, history hip fracture with ORIF, history heart attack, COPD, weakness and recent fall complicated by rhabdo. Patients states that his hematoma is from his vacuum hitting his leg about 1.5 weeks ago. States it bled for a little while but ultimately stopped and is now a collecture of dried blood. States he thought about poking it with a needle to drain it but has not yet. States is initally was painful but not bothering him much anymore. States it has not really been wrapped much. States the wound care nurse saw him earlier today for his knee wound. He denies any other pedal complaints. Denies any current constitituional symptoms. Review of Systems ROS Status of ROS 10 or more systems reviewed and unremarkable except as noted in history and below PFSH PFS Medical History (Updated 09/06/22 @ 22:59 by Guerline Stern) Family History (Updated 09/06/22 @ 22:59 by Guerline Stern) Uncle Family history of CHF (congestive heart failure) Family history of COPD (chronic obstructive pulmonary disease) Family history of cancer Father Family history of cancer Other Family history of stroke Social History (Updated 09/06/22 @ 23:01 by Guerline Stern) Within the past year, how often did you have a drink containing alcohol: monthly or less Smoking status: Current every day smoker Non-prescribed substance use: denies use Previous occupational history: retired Highest level of school completed/degree received: high school graduate Are you now , , , , never or living with a partner: In a typical week, how many times do you talk on the telephone with family, friends, or neighbors: twice per week How often do you get together with friends or relatives: once per week How often do you attend religious or synagogue services: never Do you belong to any clubs or organizations such as religious groups unions, fraternal or athletic groups, or school groups: no Total score: 1 Score interpretation: A score of less than or equal to 1 indicates the most socially isolated. Little interest or pleasure in doing things: not at all Feeling down, depressed, or hopeless: not at all Feel stressed/tense/nervous/anxious/difficulty sleeping: not at all Do you think of yourself as: straight/heterosexual Gender Identity: male Exam Narrative Exam Narrative: Derm: Moderate sized hematoma noted to the anterior right distal tibial with dried scabbing. No active bleeding. No purulence, No erythema. No pain to palpation No other open lesions noted Skin thin and atrophic baseline Eccymosis to distal toes on the right Vascular: Pulses palpable for DP and PT bilaterally No edema Capillary refill intact Extremity symmetrically warm Nerve Sensation intact to light touch MSK: Range of motion without pain to bilateral foot and ankle No pain to palpation Strength 5/5 for all quadrants Compartments soft and compressible No pain with calf compression Constitutional Vital Signs, click to edit/add: Last Vital Signs Temp 98.3 F 09/09/22 13:20 Pulse 99 H 09/09/22 13:20 Resp 18 09/09/22 13:20 BP 151/82 H 09/09/22 13:20 Pulse Ox 93 L 09/09/22 13:20 O2 Del Method Room Air 09/09/22 13:20 O2 Flow Rate 1 09/08/22 05:05 Assessment and Plan Assessment and Plan (1) Falls frequently: (2) Weakness: (3) Pneumonia: (4) Traumatic hematoma of right ankle: Assessment and Plan: Updated Dr. Nicola Chaney on patient's hematoma. He will be in to see the patient later today. Medihoney gel and bandaid placed on patient's left knee abrasion. Photos added. Orders and note sent to Dr. Mcneal for review. (5) Elevated lactic acid level: (6) Cardiomyopathy: (7) COPD (chronic obstructive pulmonary disease): (8) Hiatal hernia with GERD: (9) High blood pressure: (10) History of fractured vertebra: Plan Assessment: Right tibial hematoma Plan: Patient seen and evaluated, right tibia Labs and vitals reviewed No leukocystosis Low H/H noted BP and pulse elevated Discussed with the patient that a hematoma is thick and gelatinous and would not be easily drained with a needle by himself and I did not recommend trying I discussed usually the body is able to resorb the hematoma but that can take some time We did discuss if his body is unable to resorb it or it gets infected would could drain it surgically but I would hold off on this I dressed his hematoma with xeroform and dry dressings with an aaron for compression This can be changed every 2-3 days He can follow up in 1-2 weeks from discharge Please page with questions or concerns
--- NOTE | 2022-09-10 15:44 | CM.DCFOLLOWU ---
Person spoke with:spoke with the [facility] home health nurse who was there visiting How are you feeling? short of breath How is your pain? no pain Did you understand your discharge instructions? yes Do you have any questions about your discharge instructions? no Were you given any prescriptions at discharge? yes Were you able to get your prescriptions filled? no, he was not able to fill, he can't drive and his sister has not picked them up yet Do you understand how to take your medications as ordered? did not diamond picker scripts and has not taken meds Do you have any questions about your follow up appointment and do you plan to keep your follow up appointment? Home health nurse is contacting PCP, pt is tachy and she is doing vitals now, may need re-admitted. Is there anything else that you would like to discuss? Questions/Comments/Concerns/Other:
== END 2022-09-09 14:16 | disposition home health service (06) | DRG 871 ==
LOC: ER 19:35 → MS 22:34
PROVIDERS: Emergency Medicine Emergency Medical Services; Internal Medicine; Admitting Provider Family Medicine; Emergency Provider Emergency Medicine; PCP Family Medicine; Visit Provider Family Medicine
DX: A41.9 Sepsis, unspecified organism (principal); J18.9 Pneumonia, unspecified organism; E87.1 Hypo-osmolality and hyponatremia; M62.82 Rhabdomyolysis; I42.9 Cardiomyopathy, unspecified; J44.1 Chronic obstructive pulmonary disease with (acute) exacerbation; J44.0 Chronic obstructive pulmonary disease with (acute) lower respiratory infection; R65.20 Severe sepsis without septic shock; F17.210 Nicotine dependence, cigarettes, uncomplicated; R53.1 Weakness; Z91.81 History of falling; S80.11XA Contusion of right lower leg, initial encounter; S90.512A Abrasion, left ankle, initial encounter; S80.212A Abrasion, left knee, initial encounter; W19.XXXA Unspecified fall, initial encounter; K21.9 Gastro-esophageal reflux disease without esophagitis; K44.9 Diaphragmatic hernia without obstruction or gangrene; I10 Essential (primary) hypertension; I16.0 Hypertensive urgency; E86.0 Dehydration; D69.6 Thrombocytopenia, unspecified; M54.50 Low back pain, unspecified; D50.9 Iron deficiency anemia, unspecified; R09.02 Hypoxemia; R82.998 Other abnormal findings in urine; I25.2 Old myocardial infarction; G89.29 Other chronic pain; E83.51 Hypocalcemia; R73.9 Hyperglycemia, unspecified; T38.0X5A Adverse effect of glucocorticoids and synthetic analogues, initial encounter; Z79.51 Long term (current) use of inhaled steroids; Z79.899 Other long term (current) drug therapy; Z82.49 Family history of ischemic heart disease and other diseases of the circulatory system; Z82.3 Family history of stroke; Z82.5 Family history of asthma and other chronic lower respiratory diseases; Z80.9 Family history of malignant neoplasm, unspecified; Z87.81 Personal history of (healed) traumatic fracture; Z98.890 Other specified postprocedural states; Y93.E3 Activity, vacuuming; Y92.019 Unspecified place in single-family (private) house as the place of occurrence of the external cause; W22.8XXA Striking against or struck by other objects, initial encounter
CPT/HCPCS: 36415; 51798; 70450; 71045; 80048; 80053; 80320; 81003; 81015; 82550; 82553; 82948; 83605; 83874; 84443; 84484; 85025; 87040; 87070; 87086; 87205; 93005; 94640; 94761; 96365; 96366; 96367; 96372; 96375; 96376; 97110; 97163; 97530; 99285; G0328; G0378; J0456; J2930; Q3014

== ENCOUNTER 2022-09-10 16:38 | Inpatient (IN) | payer MEDICARE, MEDICAID, SELFPAY ==
[2022-09-10 16:40] VITALS: BP 171/97; PULSE 104; RESP 22; TEMP 36.4; O2SAT 97
--- NOTE | 2022-09-10 16:48 | XR_ITS ---
The [address] [address] Patient Name: NITESH CALZADA MRN: [id number] date: 1955 Sex: M Assigned Patient Location: ER Current Patient Location: ED.MAIN Accession/Order Number: [id number] Exam Date: 09/10/2022 17:00 Report Date: 09/10/2022 17:26 At the request of: MIKE ANAYA Procedure: XR chest 1V EXAMINATION: XR chest 1V HISTORY: Dyspnea COMPARISON: Chest x-ray 09/06/2022 TECHNIQUE: Portable chest FINDINGS: The lung parenchyma is free of consolidation or infiltrate. No pneumothorax or pleural effusion. The cardiac, mediastinal and hilar contours are normal. Left axillary and chest wall surgical clips. The visualized osseous structures exhibit no gross abnormality. XR/XR chest 1V IMPRESSION: No acute cardiopulmonary abnormality. Electronically authenticated by: VARUN SINGER Date: 09/10/2022 17:26
--- NOTE | 2022-09-10 16:48 | ECG_ITS ---
[facility] Test Date: 2022-09-10 Pat Name: NITESH CALZADA Department: Room: - Gender: Male Nurses Aide: : 1955 Requested By: [id number] Order Number: [id number] Reading MD: ROME VERDUZCO Measurements Intervals Smilax Rate: 98 P: 46 WY: 160 QRS: 10 QRSD: 98 T: 44 QT: 342 QTc: 397 Interpretive Statements 1100 Sinus rhythm 1574 with frequent ventricular premature complexes [address] depression 5211 Minimal voltage criteria for LVH, may be normal variant 9140 abnormal rhythm ECG Compared to ECG 09/06/2022 17:22:05 ST (T wave) deviation now present Early repolarization no longer present Electronically Signed On 09-11-2022 6:29:19 EDT by ROME VERDUZCO
--- NOTE | 2022-09-10 16:50 | ED.GENADUL1 ---
HPI - General Adult General Chief complaint: Shortness of Breath/Dyspnea Stated complaint: shortness of breath Time Seen by Provider: 09/10/22 16:45 Source: patient Mode of arrival: ambulance Limitations: no limitations History of Present Illness HPI narrative: patient is a 67-year-old male who returns to the emergency department by ambulance for continued shortness of breath, wheezing and generalized weakness. Patient was seen in this emergency department five days ago after multiple falls at home, he was found to have pneumonia. He is admitted to the hospital and discharged yesterday. He did not fill the prescriptions for new blood pressure medication, antibiotics or steroids. He states he is still generally weak and having difficulty ambulating around his home. He has not been eating or drinking well. he denies fevers, vomiting, chest pain. He has had swelling to his legs. Patient is noted to have multiple skin tears in various stages of healing to his arms, he has a dressing to the right lower leg from skin tears that he sustained several days ago. He denies any new falls Related Data Home Medications Medication Instructions Recorded Confirmed albuterol sulfate 90 mcg/actuation 2 puff inhalation Q4H PRN 09/06/22 09/10/22 aerosol inhaler (Ventolin HFA) shortness of breath or wheezing alprazolam 0.5 mg tablet 0.5 mg PO TID PRN anxiety 09/06/22 09/10/22 carisoprodol 350 mg tablet 350 mg PO TID PRN muscle pain 09/06/22 09/10/22 fluticasone fur. 100 mcg-umeclid 1 inh inhalation DAILY 09/06/22 09/10/22 62.5 mcg-vilant 25 mcg inhalat.powder (Trelegy Ellipta) hydrocodone 5 mg-acetaminophen 325 1 tab PO Q4H PRN pain 09/06/22 09/10/22 mg tablet pregabalin 300 mg capsule 300 mg PO BID 09/06/22 09/10/22 sacubitril 97 mg-valsartan 103 mg 1 tab PO BID 09/06/22 09/10/22 tablet (Entresto) Previous Rx's Medication Instructions Recorded cefdinir 300 mg capsule 600 mg PO DAILY 10 days #20 caps 09/09/22 clonidine HCl 0.1 mg tablet 0.1 mg PO TID #90 tabs 09/09/22 prednisone 10 mg tablet 50 mg PO DAILY #47 tabs 09/09/22 Allergies Allergy/AdvReac Type Severity Reaction Status Date / Time No Known Drug Allergies Allergy Verified 09/06/22 16:50 Review of Systems ROS Constitutional Denies: fever or chills Cardiovascular Denies: chest pain Respiratory Reports: shortness of breath, cough and wheezing Gastrointestinal Denies: abdominal pain, nausea or vomiting Genitourinary Denies: painful urination Musculoskeletal Denies: back pain Integumentary/Breast Denies: rash Neurological Denies: headache PFSH PFSH Medical History (Updated 09/10/22 @ 18:46 by JANA Castro) Family History (Updated 09/06/22 @ 22:59 by Guerline Stern) Uncle Family history of CHF (congestive heart failure) Family history of COPD (chronic obstructive pulmonary disease) Family history of cancer Father Family history of cancer Other Family history of stroke Social History Within the past year, how often did you have a drink containing alcohol: monthly or less Smoking status: Current every day smoker Non-prescribed substance use: denies use Previous occupational history: retired Highest level of school completed/degree received: high school graduate Are you now , , , , never or living with a partner: In a typical week, how many times do you talk on the telephone with family, friends, or neighbors: twice per week How often do you get together with friends or relatives: once per week How often do you attend evangelical or mandaen services: never Do you belong to any clubs or organizations such as evangelical groups unions, fraternal or athletic groups, or school groups: no Total score: 1 Score interpretation: A score of less than or equal to 1 indicates the most socially isolated. Little interest or pleasure in doing things: not at all Feeling down, depressed, or hopeless: not at all Feel stressed/tense/nervous/anxious/difficulty sleeping: not at all Do you think of yourself as: straight/heterosexual Gender Identity: male Exam Narrative Exam Narrative: Gen.: Awake, alert, in no distress Head: Normocephalic, atraumatic ENT: Moist mucous membranes Respiratory: No respiratory distress, significant inspiratory and expiratory wheezing with scattered rhonchi. Patient speaks in full sentences Cardio: Regular rate and rhythm Gastrointestinal: Abdomen is soft, nondistended and nontender to palpation Extremities: Moves extremities equally, mild pitting edema bilaterally with dressing to the right lower leg Psych: Normal mood and affect Neuro: No focal neuro deficit Skin: Warm, dry,multiple skin tears to the bilateral forearms Constitutional Vital Signs, click to edit/add: Last Vital Signs Temp 97.6 F 09/10/22 16:40 Pulse 104 H 09/10/22 16:40 Resp 22 09/10/22 16:40 BP 171/97 H 09/10/22 16:40 Pulse Ox 97 09/10/22 16:40 O2 Del Method Room Air 09/10/22 16:40 Course Vital Signs Vital signs: Vital Signs Temperature 97.6 F 09/10/22 16:40 Pulse Rate 104 H 09/10/22 16:40 Respiratory Rate 22 09/10/22 16:40 Blood Pressure 171/97 H 09/10/22 16:40 Pulse Oximetry 97 09/10/22 16:40 Oxygen Delivery Method Room Air 09/10/22 16:40 Temperature 97.6 F 09/10/22 16:40 Pulse Rate 104 H 09/10/22 16:40 Respiratory Rate 22 09/10/22 16:40 Blood Pressure 171/97 H 09/10/22 16:40 Pulse Oximetry 97 09/10/22 16:40 Oxygen Delivery Method Room Air 09/10/22 16:40 Medical Decision Making MDM Narrative Medical decision making narrative: patient was treated with gentle IV fluids, Solu-Medrol, breathing treatments. He was placed on oxygen by nasal cannula for comfort as his oxygen saturation was borderline hypoxic in the Emergency Room. He had improvement of vital signs on reevaluation and is not persistently tachycardic, no fever in the Emergency Room. Chest x-ray, lab studies are stable. BNP is mildly elevated but troponin is within normal limits. Patient will be admitted for chronic obstructive pulmonary disease exacerbation, generalized weakness. Discussed with Dr. Ceja for hospitalist service. Medical Records Medical records reviewed: Yes I reviewed the patient's medical records Lab Data Lab results reviewed: Yes I reviewed the patient's lab results Labs: Lab Results 09/10/22 Range/Units 17:18 WBC 7.0 (4.0-11.0) 10^3/uL RBC 3.94 L (4.70-6.10) 10^6/uL Hgb 13.7 L (14.0-18.0) g/dL Hct 41.3 L (42.0-54.0) % MCV 104.8 H (80.0-94.0) fL MCH 34.8 H (25.9-34.0) pg MCHC 33.2 (29.9-35.2) g/dL RDW 14.7 (11.0-15.0) % Plt Count 140 L (150-450) 10^3/uL MPV 9.5 (9.5-13.5) fL Neut % (Auto) 60.2 (43.0-75.0) % Lymph % (Auto) 28.1 (20.5-60.0) % [place] % (Auto) 9.1 (1.7-12.0) % Eos % (Auto) 0.6 L (0.9-7.0) % Baso % (Auto) 0.3 (0.2-2.0) % Neut # (Auto) 4.2 (1.4-6.5) 10^3/uL Lymph # (Auto) 2.0 (1.2-3.8) 10^3/uL [place] # (Auto) 0.6 (0.3-0.8) 10^3/uL Eos # (Auto) 0.0 (0.0-0.7) 10^3/uL Baso # (Auto) 0.0 (0.0-0.1) 10^3/uL Abs Immat Gran (auto) 0.12 H (0.00-0.03) 10^3/uL Imm/Tot Granulo (auto) 1.7 H (0.0-0.5) % PT 10.3 (9.0-11.6) sec INR 0.97 APTT 22.2 L (22.3-36.2) sec Sodium 138 (136-145) mmol/L Potassium 3.3 L (3.5-5.1) mmol/L Chloride 101 (98-107) mmol/L Carbon Dioxide 30.1 (21.0-32.0) mmol/L Anion Gap 10.2 BUN 16.0 (7.0-18.0) mg/dL Creatinine 0.75 (0.70-1.30) mg/dL Est GFR ( Amer) >60 (>=60) Est GFR (Non-Af Amer) >60 (>=60) BUN/Creatinine Ratio 21.3 Glucose 94 (74-106) mg/dL Lactate 1.3 (0.4-2.0) mmol/L Calcium 9.2 (8.5-10.1) mg/dL Total Bilirubin 0.7 (0.2-1.0) mg/dL AST 47 H (15-37) U/L ALT 89 H (16-63) U/L Alkaline Phosphatase 82 (46-116) U/L Troponin I High Sens 7.2 (4.0-76.1) pg/mL NT-Pro-B Natriuret Pep 1552.0 H* (<=900.0) pg/mL Total Protein 7.3 (6.4-8.2) g/dL Albumin 3.7 (3.4-5.0) g/dL Globulin 3.6 g/dL Albumin/Globulin Ratio 1.0 Imaging Data Chest x-ray: Attestation: I have reviewed the pertinent imaging results. Radiologist's impression: Procedure: XR chest 1V EXAMINATION: XR chest 1V HISTORY: Dyspnea COMPARISON: Chest x-ray 09/06/2022 TECHNIQUE: Portable chest FINDINGS: The lung parenchyma is free of consolidation or infiltrate. No pneumothorax or pleural effusion. The cardiac, mediastinal and hilar contours are normal. Left axillary and chest wall surgical clips. The visualized osseous structures exhibit no gross abnormality. IMPRESSION: No acute cardiopulmonary abnormality. Electronically authenticated by: VARUN SINGER Date: 09/10/2022 17:26 ECG Data Attestation: I personally reviewed and interpreted this ECG as follows: (normal sinus rhythm at a rate of ninety-eight, frequent PVCs with no acute ST elevation. Minimal ST depression. EKG reviewed by attending physician) Discharge Plan Discharge Chief Complaint: Shortness of Breath/Dyspnea Patient Disposition: Admitted as Observation Time of Disposition Decision: 18:46 Prescriptions / Home Meds: No Action albuterol sulfate [Ventolin HFA] 90 mcg/actuation HFA aerosol inhaler 2 puff INHALATION Q4H PRN (Reason: shortness of breath or wheezing) alprazolam 0.5 mg tablet 0.5 mg PO TID PRN (Reason: anxiety) carisoprodol 350 mg tablet 350 mg PO TID PRN (Reason: muscle pain) Trelegy Ellipta 100-62.5-25 mcg blister with device 1 inh INHALATION DAILY hydrocodone-acetaminophen 5-325 mg tablet 1 tab PO Q4H PRN (Reason: pain) pregabalin 300 mg capsule 300 mg PO BID Entresto 97-103 mg tablet 1 tab PO BID clonidine HCl 0.1 mg Tablet 0.1 mg PO TID Qty: 90 11RF prednisone 10 mg tablet 50 mg PO DAILY Qty: 47 0RF Rx Instructions: 5/day for 3 days. 4/day for 3 days, 3/day for 3 days, 2/day for 3 days, 1/day for 3 days, 1/2 /day for 4 days cefdinir 300 mg capsule 600 mg PO DAILY 10 Days Qty: 20 0RF Referrals: Napoleon Haywood MD [Primary Care Provider] - 1 week
--- NOTE | 2022-09-10 17:03 | PC.NURSE ---
called pt's sister Lisbet as requested by pt at [phone], no answer and unable to leave mess
[2022-09-10] MEDS: METHYLPREDNISOLONE SOD SUCC PF 125 MG/2 ML VIAL IVP (17:12)
[2022-09-10] MEDS: 0.9 % SODIUM CHLORIDE 1,000 ML 1000 ML IV (17:12)
[2022-09-10] MEDS: IPRATROPIUM/ALBUTEROL SULFATE 3 ML AMPUL.NEB IH (17:20)
[2022-09-10 17:37] LABS: Basophils Percent Auto 0.3 % (0.2-2.0); Eosinophils Percent Auto 0.6 % (0.9-7.0); Hematocrit 41.3 % (42.0-54.0); Hemoglobin 13.7 g/dL (14.0-18.0); Immature Granulocytes Abs Auto 0.12 10^3/uL (0.00-0.03); Immature Granulocytes Pct Auto 1.7 % (0.0-0.5); Lymphocytes Percent Auto 28.1 % (20.5-60.0); Mean Corpuscular HGB Conc 33.2 g/dL (29.9-35.2); Mean Corpuscular Hemoglobin 34.8 pg (25.9-34.0); Mean Corpuscular Volume 104.8 fL (80.0-94.0); Mean Platelet Volume 9.5 fL (9.5-13.5); Monocytes Absolute Auto 0.6 10^3/uL (0.3-0.8); Monocytes Percent Auto 9.1 % (1.7-12.0); Neutrophils Absolute Auto 4.2 10^3/uL (1.4-6.5); Neutrophils Percent Auto 60.2 % (43.0-75.0); Platelet Count 140 10^3/uL (150-450); Red Blood Count 3.94 10^6/uL (4.70-6.10); Red Cell Distribution Width 14.7 % (11.0-15.0)
[2022-09-10 17:47] LABS: Lactate/Lactic Acid 1.3 mmol/L (0.4-2.0)
[2022-09-10 17:49] LABS: INR 0.97; Partial Thromboplastin Time 22.2 sec (22.3-36.2); Prothrombin Time 10.3 sec (9.0-11.6)
[2022-09-10 17:55] LABS: Alanine Aminotransferase 89 U/L (16-63); Albumin Level 3.7 g/dL (3.4-5.0); Alkaline Phosphatase 82 U/L (46-116); Anion Gap 10.2; Aspartate Amino Transferase 47 U/L (15-37); BUN Creatinine Ratio 21.3; Bilirubin Total 0.7 mg/dL (0.2-1.0); Calcium 9.2 mg/dL (8.5-10.1); Carbon Dioxide 30.1 mmol/L (21.0-32.0); Chloride 101 mmol/L (98-107); Estimated GFR (African America >60 (>=60); Estimated GFR (Non-African Ame >60 (>=60); Globulin 3.6 g/dL; Glucose 94 mg/dL (74-106); Potassium 3.3 mmol/L (3.5-5.1); Sodium 138 mmol/L (136-145); Total Protein 7.3 g/dL (6.4-8.2); Troponin I High Sensitivity 7.2 pg/mL (4.0-76.1)
--- NOTE | 2022-09-10 19:00 | W.PM.TELEPN ---
Progress Note: Subjective Subjective Interval history: Homero Adams is a 67yo man with a PMHx of Hypertension, COPD, who presented to the ED on 09/07/2022 with frequent falls and was found to have pneumonia and an acute exacerbation of COPD. He was discharged home on 08/09/2022 but it seems that he has not been able to walk unassisted and has not been taking his prescribed cefdinir or clonidine that was ordered upon his discharge. He states that he has just been too weak since he left and felt more short of breath. He did not have worsening of his cough but he did have chills and sweats. He has not noted any worsening of his LE edema. He denies any chest pain, N/V/D/C, abdominal pain or palpitations. Exam Narrative Exam Narrative: He has a 5cm wound on his right anterior tibia that appears to have a hematoma. There is no evidence of purulence or erythema around the wound. There is a defect on the medial aspect of the wound. Constitutional Vital Signs, click to edit/add: Last Vital Signs Temp 97.6 F 09/10/22 16:40 Pulse 104 H 09/10/22 16:40 Resp 22 09/10/22 16:40 BP 171/97 H 09/10/22 16:40 Pulse Ox 97 09/10/22 16:40 O2 Del Method Room Air 09/10/22 16:40 Documenting provider has reviewed patient's vital signs: yes Common normals: no apparent distress and oriented x3 General appearance: disheveled HENMT Common normals: normocephalic and head/scalp atraumatic Eye Common normals: PERRL and EOMs intact bilaterally Neck & C-Spine Common normals: full ROM and no lymphadenopathy Lymph Lymphatic: no lymphadenopathy noted Chest Common normals: inspection of chest normal Respiratory Auscultation: rhonchi throughout Cardio Common normals: no JVD, regular rate, regular rhythm, S1 normal heart sound, S2 normal heart sound, no murmurs and peripheral pulses 2+ throughout Other: Bilateral non-pitting edema to his thighs GI Common normals: Normal to inspection, nondistended, normoactive bowel sounds present, soft to palpation and non-tender Extremity Common normals: normal to inspection and full ROM Neuro Abhijit Coma Scale: document GCS findings Common normals: oriented x3, CN's II-XII intact bilaterally, moves all extremities, no focal motor deficits and no sensory deficits noted Psych Common normals: mental status grossly normal and thought process normal Progress Note: Objective Labs Labs: Short CBC 09/10/22 Range/Units 17:18 WBC 7.0 (4.0-11.0) 10^3/uL Hgb 13.7 L (14.0-18.0) g/dL Hct 41.3 L (42.0-54.0) % Plt Count 140 L (150-450) 10^3/uL BMP 09/10/22 17:18 Sodium 138 Potassium 3.3 L Chloride 101 Carbon Dioxide 30.1 BUN 16.0 Creatinine 0.75 Glucose 94 Calcium 9.2 Liver Function 09/10/22 Range/Units 17:18 Total Bilirubin 0.7 (0.2-1.0) mg/dL AST 47 H (15-37) U/L ALT 89 H (16-63) U/L Alkaline Phosphatase 82 (46-116) U/L Albumin 3.7 (3.4-5.0) g/dL Progress Note: A&P Assessment and Plan (1) Acute exacerbation of chronic obstructive pulmonary disease: Assessment and Plan: Acute exacerbation of COPD The patient was admitted on 09/07/2022 with pneumonia and was started on ceftriaxone and azithromycin. He was discharged a day later on cefdinir and also a predisone taper for COPD. He reportedly did not potato picker those prescriptions and returns now with SOB, has wheezing, although his chest X-ray no longer shows an infiltrate, suggesting that he might have had pneumonitis. In any case, we should complete his course of antibiotics. - observation status - c/w prednisone taper - duonebs as needed - c/w cefdinir - supplemental oxygen as needed - c/w home regimen (2) Weakness: Assessment and Plan: Generalised Weakness Likely secondary to his COPD and possible infection. - PT consult (3) Traumatic hematoma of right ankle: Assessment and Plan: RLE wound He has a wound that has been there for the last month and a half. 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 No evidence of infection, but there is a hematoma that will take some time to be resorbed. - wound care consult Plan Hypertension - poorly controlled - start on clonidine - c/w entresto History of CAD - c/w entresto Telemedicine Attestation Telemedicine Attestation I conducted this encounter from [place] via secure live, [id number] video conference with the patient, located at [facility] with Tamara Pendleton. Prior to the interview, the risks and benefits of telemedicine were discussed with the patient and verbal consent was obtained.
[2022-09-10] MEDS: CEFDINIR 300 MG CAPSULE PO (19:11)
[2022-09-10 19:47] VITALS: BMI 25.9
[2022-09-10 19:54] VITALS: O2SAT 96
[2022-09-10 20:00] VITALS: PULSE 97
[2022-09-10 20:08] VITALS: BP 150/85; PULSE 99; RESP 22; TEMP 36.6; O2SAT 96
[2022-09-10] MEDS: ENOXAPARIN SODIUM 40 MG/0.4 ML SYRINGE SUBQ (21:47)
[2022-09-10] MEDS: PREDNISONE 20 MG TABLET 40 MG PO (21:47)
[2022-09-10] MEDS: CARISOPRODOL 350 MG TABLET PO (21:47)
[2022-09-10] MEDS: PREGABALIN 100 MG CAPSULE 300 MG PO (21:47)
[2022-09-10] MEDS: ALPRAZOLAM 0.5 MG TABLET PO (21:47)
[2022-09-10] MEDS: CLONIDINE HCL 0.1 MG TABLET PO (21:48)
[2022-09-10] MEDS: HYDROCODONE/ACETAMINOPHEN 5-325 MG TABLET 1 TAB PO (21:49)
[2022-09-10 22:00] VITALS: PULSE 88
[2022-09-10] MEDS: ZOLPIDEM TARTRATE 5 MG TABLET PO (22:27)
[2022-09-10 23:12] VITALS: O2SAT 98
[2022-09-11] VITALS (19 sets, daily range): BP systolic 121–146; BP diastolic 77–86; PULSE 69–102; RESP 18–20; TEMP 36.4–36.7; O2SAT 90–98
[2022-09-11 04:46] LABS: Basophils Percent Auto 0.3 % (0.2-2.0); Hematocrit 36.5 % (42.0-54.0); Immature Granulocytes Abs Auto 0.09 10^3/uL (0.00-0.03); Immature Granulocytes Pct Auto 2.3 % (0.0-0.5); Lymphocytes Absolute Auto 0.5 10^3/uL (1.2-3.8); Lymphocytes Percent Auto 12.2 % (20.5-60.0); Mean Corpuscular HGB Conc 32.9 g/dL (29.9-35.2); Mean Corpuscular Hemoglobin 34.9 pg (25.9-34.0); Mean Corpuscular Volume 106.1 fL (80.0-94.0); Mean Platelet Volume 9.9 fL (9.5-13.5); Monocytes Absolute Auto 0.2 10^3/uL (0.3-0.8); Monocytes Percent Auto 4.3 % (1.7-12.0); Neutrophils Absolute Auto 3.2 10^3/uL (1.4-6.5); Neutrophils Percent Auto 80.9 % (43.0-75.0); Platelet Count 139 10^3/uL (150-450); Red Blood Count 3.44 10^6/uL (4.70-6.10); Red Cell Distribution Width 14.7 % (11.0-15.0); White Blood Count 3.9 10^3/uL (4.0-11.0)
[2022-09-11 04:59] LABS: BUN Creatinine Ratio 25.6; Calcium 7.9 mg/dL (8.5-10.1); Carbon Dioxide 29.4 mmol/L (21.0-32.0); Chloride 104 mmol/L (98-107); Estimated GFR (African America >60 (>=60); Estimated GFR (Non-African Ame >60 (>=60); Glucose 139 mg/dL (74-106); Potassium 4.4 mmol/L (3.5-5.1); Sodium 138 mmol/L (136-145)
[2022-09-11] MEDS: CLONIDINE HCL 0.1 MG TABLET PO ×3 (06:05→23:06)
[2022-09-11] MEDS: HYDROCODONE/ACETAMINOPHEN 5-325 MG TABLET 1 TAB PO ×4 (06:08→20:40)
[2022-09-11] MEDS: ALPRAZOLAM 0.5 MG TABLET PO ×2 (06:08→20:40)
[2022-09-11] MEDS: CARISOPRODOL 350 MG TABLET PO ×2 (06:08→20:40)
--- NOTE | 2022-09-11 07:47 | CA_ITS ---
Patient: NITESH CALZADA Exam Date: 09/11/2022 : 1955 Gender:M Ordering : DR Napoleon Haywood . Admission #: [id number] Family : Order #: [id number] CLICK HERE TO VIEW EXAM ECHOCARDIOGRAM REPORT PROCEDURE: CA ECHO DOPPLER COMPLETE INDICATIONS: elevagted BNP COMPARISON: None. DESCRIPTION: COMPLETE ECHOCARDIOGRAM Real-time transthoracic echocardiography with 2D, M-mode, spectral and color flow Doppler performed. QUALITY: Technical quality was good. LEFT VENTRICLE: Normal chamber size. Moderate concentric left ventricular hypertrophy. Global left ventricular systolic function is normal. LV EF: Visual estimation of left ventricular ejection fraction is 55% DIASTOLIC: Normal diastolic function. ATRIAL SEPTUM: LEFT ATRIUM: Normal chamber size. RIGHT ATRIUM: Normal chamber size. RIGHT VENTRICLE: Normal chamber size. Normal right ventricular systolic function. TRICUSPID VALVE: Normal mobility and thickness. No stenosis with trivial regurgitation. No evidence of pulmonary hypertension. RVSP 29 mmHg MITRAL VALVE: Normal mobility and thickness. No evidence of mitral valve stenosis. There is no mitral annular calcification. No mitral regurgitation. AORTIC VALVE: Normal trileaflet appearance. Thickened aortic valve. Normal leaflet mobility. No evidence of aortic valve stenosis. No aortic regurgitation. AORTIC ROOT: Normal diameter and appearance. PULMONIC VALVE: Normal thickness and mobility. No stenosis. No regurgitation. PERICARDIUM: No evidence of pericardial effusion. IVC: Not well visualized. PLEURA: CONCLUSION: 1. Moderate concentric left ventricular hypertrophy with normal systolic function. LVEF is 55%. 2. Normal diastolic function. 3. Normal right ventricular size and systolic function. 4. No significant valvular dysfunction. 5. Normal right-sided pressures. 6. No pericardial effusion. Adult Echocardiography Procedure Report Left Ventricle LVEDD (3.7 - 5.6 cm): 4.07 cm LVESD (2.2 - 4.0 cm): 3.18 cm LVIVS thickness (0.6 - 1.2 cm): 1.27 cm LVPW thickness (0.5 - 1.0 cm): 1.43 cm LVOT Max Gradient: 4 mm[Hg] Peak Velocity (LVOT): 98.50 cm/s Mean Velocity (LVOT): 57.70 cm/s LVOT Diameter 2.20 cm Left Ventricular Ejection Fraction: 55 % Left Atrium LA Volume Index (2D A2C): 93010 mm3 Left Atrium Systolic Dimension: 3.60 cm Mitral Valve MV E to A Ratio: 0.60 Mitral Valve A-Wave Peak Velocity: 121.00 cm/s Mitral Valve E-Wave Peak Velocity: 74.00 cm/s Right Ventricle Aorta AO Root Diam: 3.20 cm Aortic Valve AoV Area (Peak Bertin): 2.75 cm2 AoV Area (VTI): 3.35 cm2 Peak Velocity(Antegrade Flow): 136.00 cm/s Peak Gradient(Antegrade Flow): 7 mm[Hg] Mean Velocity(Antegrade Flow): 81.70 cm/s Mean Gradient(Antegrade Flow): 3 mm[Hg] Velocity Time Integral: 21.80 cm Tricuspid Valve Peak Velocity (Regurgitant Flow): 254.00 cm/s Peak Velocity: 68.10 cm/s Pulmonic Valve Peak Velocity: 132.00 cm/s, 155.00 cm/s Peak Gradient: 8 mm[Hg] Right Atrium Dictated by: Gume Santana M.D. on 09/11/2022 at 19:14 Approved by: Gume Santana M.D. on 09/11/2022 at 19:16
--- NOTE | 2022-09-11 07:57 | P.HP_ITS ---
H&P: HPI History of Present Illness Chief complaint: shortness of breath COPD EXACERBATION Narrative: Patient recently admitted for pneumonia. Sent home with antibiotics and steroids for acute exacerbation of COPD. Was unable to get the medication. Condition deteriorated. He was seen by home health they recommended him return to the ER due to increasing shortness of breath. Difficulty ambulating secondary to that. Increasing cough with sputum production. In ER chest x-ray now clear but significant hypoxia. He does not wear supplemental oxygen at home. Requiring 2 L to keep saturations greater than 90% in ER. Patient will be admitted for failed outpatient treatment of acute exacerbation of COPD secondary to pneumonia from previous diagnosis Review of Systems ROS Constitutional Reports: fever and chills Cardiovascular Denies: chest pain or palpitations Respiratory Reports: shortness of breath, cough, wheezing, change in phlegm color and chest congestion Gastrointestinal Denies: abdominal pain, nausea or vomiting Genitourinary Denies: painful urination or urinary frequency Musculoskeletal Reports: back pain Endocrine Denies: excessive urination Hematologic/Lymphatic Denies: easy bruising PFSH PFSH Medical History (Updated 09/10/22 @ 20:23 by Tamara Pendleton) Family History (Updated 09/06/22 @ 22:59 by Guerline Stern) Uncle Family history of CHF (congestive heart failure) Family history of COPD (chronic obstructive pulmonary disease) Family history of cancer Father Family history of cancer Other Family history of stroke Social History Within the past year, how often did you have a drink containing alcohol: monthly or less Smoking status: Current every day smoker Non-prescribed substance use: denies use Previous occupational history: retired Highest level of school completed/degree received: high school graduate Are you now , , , , never or living with a partner: In a typical week, how many times do you talk on the telephone with family, friends, or neighbors: twice per week How often do you get together with friends or relatives: once per week How often do you attend hoahaoism or mormon services: never Do you belong to any clubs or organizations such as hoahaoism groups unions, fraternal or athletic groups, or school groups: no Total score: 1 Score interpretation: A score of less than or equal to 1 indicates the most socially isolated. Little interest or pleasure in doing things: not at all Feeling down, depressed, or hopeless: not at all Feel stressed/tense/nervous/anxious/difficulty sleeping: not at all Do you think of yourself as: straight/heterosexual Gender Identity: male Meds Home Medications and Allergies Home Medications Medication Instructions Recorded Confirmed Type albuterol sulfate 90 mcg/actuation 2 puff inhalation Q4H PRN 09/06/22 09/10/22 History aerosol inhaler (Ventolin HFA) shortness of breath or wheezing alprazolam 0.5 mg tablet 0.5 mg PO TID PRN anxiety 09/06/22 09/10/22 History carisoprodol 350 mg tablet 350 mg PO TID PRN muscle pain 09/06/22 09/10/22 History fluticasone fur. 100 mcg-umeclid 1 inh inhalation DAILY 09/06/22 09/10/22 History 62.5 mcg-vilant 25 mcg inhalat.powder (Trelegy Ellipta) hydrocodone 5 mg-acetaminophen 325 1 tab PO Q4H PRN pain 09/06/22 09/10/22 History mg tablet pregabalin 300 mg capsule 300 mg PO BID 09/06/22 09/10/22 History sacubitril 97 mg-valsartan 103 mg 1 tab PO BID 09/06/22 09/10/22 History tablet (Entresto) cefdinir 300 mg capsule 600 mg PO DAILY 10 days #20 caps 09/09/22 09/10/22 Rx clonidine HCl 0.1 mg tablet 0.1 mg PO TID #90 tabs 09/09/22 09/10/22 Rx prednisone 10 mg tablet 50 mg PO DAILY #47 tabs 09/09/22 09/10/22 Rx Allergies Allergy/AdvReac Type Severity Reaction Status Date / Time No Known Drug Allergies Allergy Verified 09/06/22 16:50 Exam Constitutional Vital Signs, click to edit/add: Last Vital Signs Temp 98.0 F 09/11/22 05:02 Pulse 69 09/11/22 06:00 Resp 18 09/11/22 05:02 BP 146/86 H 09/11/22 05:02 Pulse Ox 96 09/11/22 05:02 O2 Del Method Nasal Cannula 09/11/22 05:02 O2 Flow Rate 2 09/11/22 05:02 Documenting provider has reviewed patient's vital signs: yes Common normals: apparent distress Chest Common normals: inspection of chest normal Respiratory Common normals: abnormal respiratory effort and not clear to ascultation bilaterally Effort & inspection: tachypneic and respiratory distress Auscultation: rhonchi, wheezes and diminished lung sounds Cardio Common normals: regular rate, regular rhythm and no murmurs GI Common normals: Normal to inspection, nondistended, normoactive bowel sounds present Back & Pelvis Lumbar spine/lower back: lumbar spinal tenderness Extremity Common normals: normal to inspection Results Labs Labs: Short CBC 09/10/22 09/11/22 Range/Units 17:18 04:34 WBC 7.0 3.9 L (4.0-11.0) 10^3/uL Hgb 13.7 L 12.0 L (14.0-18.0) g/dL Hct 41.3 L 36.5 L (42.0-54.0) % Plt Count 140 L 139 L (150-450) 10^3/uL BMP 09/10/22 09/11/22 17:18 04:34 Sodium 138 138 Potassium 3.3 L 4.4 Chloride 101 104 Carbon Dioxide 30.1 29.4 BUN 16.0 20.0 H Creatinine 0.75 0.78 Glucose 94 139 H Calcium 9.2 7.9 L Liver Function 09/10/22 Range/Units 17:18 Total Bilirubin 0.7 (0.2-1.0) mg/dL AST 47 H (15-37) U/L ALT 89 H (16-63) U/L Alkaline Phosphatase 82 (46-116) U/L Albumin 3.7 (3.4-5.0) g/dL Assessment and Plan Assessment and Plan (1) Acute exacerbation of chronic obstructive pulmonary disease: (2) Weakness: (3) Traumatic hematoma of right ankle: Plan Sinus tachycardia, uncontrolled hypertension with hypertensive urgency, profound weakness with acute hypoxia leading to severe sepsis (Tachycardia, resp distress, lung infection). ? this is causing acute exacerbation of his COPD.? Failed out-pt treatment. Readmitted - restarted ab, steroid, aeresols, check CTA with elevated BNP Elevagted BNP = normal Trop - check echo and CTA chest - Saline lock - hold off on diuresis - no sig peripheral edema, lungs sounds more like copd than chf Thrombocytopenia- monitor History of cardiomyopathy-secondary to AL-Checking echocardiogram. Low back pain-this is chronic for him, continue with current medication Left ankle abrasion-leg wound management monitor some swelling,-continue to monitor iron deficiency anemia-down somewhat today, continue to monitor hypocalcemia-supplement Mild neutropenia-complicating the above-monitor daily Place patient inpatient status secondary to failed outpatient treatment of acute exacerbation of COPD. Likely 2 to 3-day hospital stay. May need rehab., Condition overall deteriorated from previous admission with now with elevated BNP
[2022-09-11 08:28] LABS: Adenovirus NOT DETECTED (NOT DETECTE); Bordetella parapertussis NOT DETECTED (NOT DETECTE); Coronavirus 229E NOT DETECTED (NOT DETECTE); Coronavirus HKU1 NOT DETECTED (NOT DETECTE); Coronavirus NL63 NOT DETECTED (NOT DETECTE); Coronavirus OC43 NOT DETECTED (NOT DETECTE); Human Metapneumovirus NOT DETECTED (NOT DETECTE); Human Rhinovirus/Enterovirus NOT DETECTED (NOT DETECTE); Influenza A NOT DETECTED (NOT DETECTE); Influenza B NOT DETECTED (NOT DETECTE); Mycoplasma pneumoniae NOT DETECTED (NOT DETECTE); Parainfluenza Virus 1 NOT DETECTED (NOT DETECTE); Parainfluenza Virus 2 NOT DETECTED (NOT DETECTE); Parainfluenza Virus 3 NOT DETECTED (NOT DETECTE); Parainfluenza Virus 4 NOT DETECTED (NOT DETECTE); Respiratory Syncytial Virus NOT DETECTED (NOT DETECTE); SARS-CoV-2 NOT DETECTED (NOT DETECTE)
--- NOTE | 2022-09-11 09:33 | CT_ITS ---
The [address] [address] Patient Name: NITESH CALZADA MRN: [id number] date: 1955 Sex: M Assigned Patient Location: [place] Current Patient Location: [place] Accession/Order Number: [id number] Exam Date: 09/11/2022 09:00 Report Date: 09/11/2022 10:17 At the request of: ROME VERDUZCO Procedure: CT angio chest EXAM: CT angio chest HISTORY: acute hypoxia COMPARISON: None. TECHNIQUE: Following the intravenous administration of 100 cc of Omnipaque 300, axial soft tissue and lung windows of the chest were obtained with coronal and sagittal reformats. 3-D MIPS reconstructions were created and reviewed. CT dose reduction technique was used including Automated Exposure Control. Findings: The heart is not significantly enlarged. No pericardial effusion. The thoracic aorta is normal caliber with mild atherosclerotic disease. There is adequate opacification of the pulmonary arteries. No evidence of pulmonary embolism. The central airways are patent. Mild peribronchial thickening. No pneumothorax. Trace right and small left pleural effusions. Minimal adjacent right with mild left lower lobe atelectasis. There are patchy bilateral upper lobe groundglass opacities. No enlarged mediastinal, hilar, axillary or supraclavicular lymph nodes. Hepatic and splenic calcifications likely relating to prior granulomatous disease. No aggressive sclerotic or lytic osseous lesions. Redemonstrated are multilevel thoracic vertebral body compression fractures. CT/CT angio chest IMPRESSION: 1. No pulmonary embolism. 2. Trace right with small left pleural effusions. Adjacent atelectasis. 3. Patchy bilateral upper lobe groundglass opacities are nonspecific but may relate to developing pulmonary edema or multifocal infection/inflammation. Electronically authenticated by: NITESH BARNARD Date: 09/11/2022 10:17
[2022-09-11] MEDS: BISACODYL 5 MG TABLET PO (10:36)
[2022-09-11] MEDS: FERROUS SULFATE 325 MG TABLET PO (10:36)
[2022-09-11] MEDS: PREGABALIN 100 MG CAPSULE 300 MG PO ×2 (10:36→23:04)
[2022-09-11] MEDS: CIPROFLOXACIN IN 5 % DEXTROSE 400 MG/200 ML PIGGYBACK 200 MG IV (10:37)
[2022-09-11] MEDS: PIPERACILLIN SODIUM/TAZOBACTAM 3.375 GM in 0.9 % SODIUM CHLORIDE 50 ML IV (10:37)
[2022-09-11] MEDS: METHYLPREDNISOLONE SOD SUCC PF 125 MG/2 ML VIAL IVP ×3 (10:38→23:06)
[2022-09-11] MEDS: 0.9 % SODIUM CHLORIDE 250 ML 10 ML IV (10:40)
[2022-09-11] MEDS: BUDESONIDE 0.5 MG/2 ML AMPULE NEB IH ×2 (10:43→20:04)
[2022-09-11] MEDS: IPRATROPIUM/ALBUTEROL SULFATE 3 ML AMPUL.NEB IH ×3 (10:50→20:04)
--- NOTE | 2022-09-11 13:44 | CM.NOTE ---
Called [facility] to clarify that patient is present with them. Nurse states they did not admit pt and felt he was unsafe for home and not a candidate for HH.
--- NOTE | 2022-09-11 15:09 | CM.NOTE ---
Spoke in depth with pt regarding being home alone and safety concerns with [facility]. [facility] refuses to take pt at this time. Pt voices he understands he is weak and needs therapy but he has to be home to pay his rent or he would be evicted. Discussed with pt about reaching out to [facility] with my assistance to see if arrangements could be made for making payment, if pt would decide to go into a skilled facility. Talked with pt importance of safety. Pt continues to refuse inpt skilled therapy at this time. Pt states if he could go into skilled facility after the 20 of September he would think about going. Explained to pt about inpt days needed for insurance to cover skilled facility vs having to pay out of pocket. Pt at this time continues to only want to return home with HH. PT does state in the evaluation home with HH. Pt ok with any HH company after given list of star ratings. New referral sent to [facility] and spoke with them on the phone to verify they received referral.
--- NOTE | 2022-09-11 15:45 | CM.NOTE ---
Important Message From medicare discussed with pt, pt verbalizes understanding and signs paper. Original given to pt and copy placed on pt's chart.
--- NOTE | 2022-09-11 17:59 | RESP.RT ---
Decreased O2 down to 1L, patient was 97% when checked on 1L.
--- NOTE | 2022-09-11 20:24 | RESP.RT ---
Decrease down to room air.
[2022-09-11] MEDS: ENOXAPARIN SODIUM 40 MG/0.4 ML SYRINGE SUBQ (23:05)
[2022-09-11] MEDS: ZOLPIDEM TARTRATE 5 MG TABLET PO (23:05)
[2022-09-12] VITALS (12 sets, daily range): BP systolic 130–133; BP diastolic 76–86; PULSE 71–109; RESP 16–18; TEMP 36.7; O2SAT 91–96
[2022-09-12] MEDS: CIPROFLOXACIN IN 5 % DEXTROSE 400 MG/200 ML PIGGYBACK 125 MG IV ×2 (01:00→09:37)
[2022-09-12] MEDS: PIPERACILLIN SODIUM/TAZOBACTAM 3.375 GM in 0.9 % SODIUM CHLORIDE 50 ML IV (02:49)
[2022-09-12] MEDS: METHYLPREDNISOLONE SOD SUCC PF 125 MG/2 ML VIAL IVP (03:45)
[2022-09-12] MEDS: HYDROCODONE/ACETAMINOPHEN 5-325 MG TABLET 1 TAB PO ×3 (03:54→12:47)
[2022-09-12 05:04] LABS: Basophils Percent Auto 0.2 % (0.2-2.0); Hematocrit 33.4 % (42.0-54.0); Hemoglobin 11.2 g/dL (14.0-18.0); Immature Granulocytes Abs Auto 0.07 10^3/uL (0.00-0.03); Immature Granulocytes Pct Auto 1.1 % (0.0-0.5); Lymphocytes Absolute Auto 0.4 10^3/uL (1.2-3.8); Lymphocytes Percent Auto 6.8 % (20.5-60.0); Mean Corpuscular HGB Conc 33.5 g/dL (29.9-35.2); Mean Corpuscular Hemoglobin 35.3 pg (25.9-34.0); Mean Corpuscular Volume 105.4 fL (80.0-94.0); Mean Platelet Volume 10.2 fL (9.5-13.5); Monocytes Absolute Auto 0.3 10^3/uL (0.3-0.8); Monocytes Percent Auto 4.7 % (1.7-12.0); Neutrophils Absolute Auto 5.6 10^3/uL (1.4-6.5); Neutrophils Percent Auto 87.2 % (43.0-75.0); Platelet Count 165 10^3/uL (150-450); Red Blood Count 3.17 10^6/uL (4.70-6.10); Red Cell Distribution Width 14.5 % (11.0-15.0); White Blood Count 6.4 10^3/uL (4.0-11.0)
[2022-09-12] MEDS: IPRATROPIUM/ALBUTEROL SULFATE 3 ML AMPUL.NEB IH ×2 (05:05→10:32)
[2022-09-12] MEDS: CLONIDINE HCL 0.1 MG TABLET PO ×2 (05:29→13:00)
[2022-09-12] MEDS: CARISOPRODOL 350 MG TABLET PO (05:34)
[2022-09-12] MEDS: ALPRAZOLAM 0.5 MG TABLET PO (05:35)
[2022-09-12 05:41] LABS: Anion Gap 11.7; BUN Creatinine Ratio 26.3; Calcium 7.9 mg/dL (8.5-10.1); Carbon Dioxide 28.6 mmol/L (21.0-32.0); Chloride 102 mmol/L (98-107); Estimated GFR (African America >60 (>=60); Estimated GFR (Non-African Ame >60 (>=60); Glucose 148 mg/dL (74-106); Potassium 4.3 mmol/L (3.5-5.1); Sodium 138 mmol/L (136-145)
--- NOTE | 2022-09-12 08:02 | P.DS_ITS ---
DS: Providers Provider Date of admission: 09/11/22 07:50 Primary care physician: Napoleon Haywood MD Consults: 09/10/22 Occupational Therapy Eval and Treat Routine Physical Therapy Eval and Treat Routine Wound Assessment Consult Routine Consulting Provider: Jorgeist 09/11/22 07:50 Occupational Therapy Eval and Treat Routine Physical Therapy Eval and Treat Routine DS: Diagnosis Discharge Diagnosis (1) Acute exacerbation of chronic obstructive pulmonary disease: (2) Weakness: (3) Traumatic hematoma of right ankle: Plan Sinus tachycardia, uncontrolled hypertension with hypertensive urgency, profound weakness with acute hypoxia? leading to severe sepsis (Tachycardia, resp distress, lung infection). ? this is causing acute exacerbation of his COPD.?? Failed out-pt treatment.? Elevated BNP Thrombocytopenia History of cardiomyopathy- Low back pain-this is chronic for him Left ankle abrasion iron deficiency anemia hypocalcemia Mild neutropenia DS: Summary Hospital Course Hospital Course: Patient was admitted with acute hypoxia secondary to acute exacerbation of COPD secondary to pneumonia seen on CT scan. Failed outpatient treatment. Readmitted placed on alternate IV antibiotics. Patient did improve faster than anticipated. He has been able to be weaned off of his supplemental oxygen. He does not wear oxygen at home. Prefer to remain that way. If he is ambulating well later today can be discharged home in improving condition. Medications see list. Follow-up with me in the office in the next 2 to 3 days. Time Spent with Patient Time attestation: Total time spent providing and/or coordinating discharge services: Exam Constitutional Vital Signs, click to edit/add: Last Vital Signs Temp 98.1 F 09/12/22 06:00 Pulse 86 09/12/22 06:10 Resp 18 09/12/22 06:00 BP 133/86 H 07/26/23 06:00 Pulse Ox 91 L 09/12/22 06:00 O2 Del Method Room Air 09/12/22 06:00 O2 Flow Rate 1 09/11/22 20:24 Documenting provider has reviewed patient's vital signs: yes Common normals: apparent distress Chest Common normals: inspection of chest normal Respiratory Common normals: abnormal respiratory effort and not clear to ascultation bilaterally Effort & inspection: non tachypneic and no respiratory distress Auscultation: rhonchi (Persistent but much improved) and diminished lung sounds; no wheezes Cardio Common normals: regular rate, regular rhythm and no murmurs GI Common normals: Normal to inspection, nondistended, normoactive bowel sounds present Back & Pelvis Lumbar spine/lower back: lumbar spinal tenderness Extremity Common normals: normal to inspection DS: Data Data Completed and Pending Labs on day of discharge: Labs from last 24 hours 09/12/22 09/11/22 04:27 08:10 WBC 6.4 RBC 3.17 L Hgb 11.2 L Hct 33.4 L MCV 105.4 H MCH 35.3 H MCHC 33.5 RDW 14.5 Plt Count 165 MPV 10.2 Neut % (Auto) 87.2 H Lymph % (Auto) 6.8 L [place] % (Auto) 4.7 Eos % (Auto) 0.0 L Baso % (Auto) 0.2 Neut # (Auto) 5.6 Lymph # (Auto) 0.4 L [place] # (Auto) 0.3 Eos # (Auto) 0.0 Baso # (Auto) 0.0 Abs Immat Gran (auto) 0.07 H Imm/Tot Granulo (auto) 1.1 H Sodium 138 Potassium 4.3 Chloride 102 Carbon Dioxide 28.6 Anion Gap 11.7 BUN 20.0 H Creatinine 0.76 Est GFR ( Amer) >60 Est GFR (Non-Af Amer) >60 BUN/Creatinine Ratio 26.3 Glucose 148 H Calcium 7.9 L NT-Pro-B Natriuret Pep 320.0 Adenovirus (PCR) Not detected C. pneumoniae DNA (PCR) Not detected Coronavirus Type OC43 Not detected Coronavirus Type HKU1 Not detected Coronavirus Type 229E Not detected Coronavirus Type NL63 Not detected Human Metapneumovir PCR Not detected M. pneumoniae (PCR) Not detected Parainfluenza PCR Not detected Parainfluenza 2 (PCR) Not detected Parainfluenza 3 (PCR) Not detected Parainfluenza 4 (PCR) Not detected RSV (RT-PCR) Not detected Entero/Rhino (PCR) Not detected SARS-CoV-2 (PCR) Not detected Bordetella pertussis (PCR) Not detected B parapertussis DNA PCR Not detected Influenza Type A (PCR) Not detected Influenza Type B (PCR) Not detected Discharge Plan Discharge Disposition: Home Health Service Condition: Good Discharge Medications: New amitriptyline 50 mg tablet 50 mg PO .qhs Qty: 30 12RF Continued albuterol sulfate [Ventolin HFA] 90 mcg/actuation HFA aerosol inhaler 2 puff INHALATION Q4H PRN (Reason: shortness of breath or wheezing) alprazolam 0.5 mg tablet 0.5 mg PO TID PRN (Reason: anxiety) carisoprodol 350 mg tablet 350 mg PO TID PRN (Reason: muscle pain) Trelegy Ellipta 100-62.5-25 mcg blister with device 1 inh INHALATION DAILY hydrocodone-acetaminophen 5-325 mg tablet 1 tab PO Q4H PRN (Reason: pain) pregabalin 300 mg capsule 300 mg PO BID Entresto 97-103 mg tablet 1 tab PO BID clonidine HCl 0.1 mg Tablet 0.1 mg PO TID Qty: 90 11RF prednisone 10 mg tablet 50 mg PO DAILY Qty: 47 0RF Rx Instructions: 5/day for 3 days. 4/day for 3 days, 3/day for 3 days, 2/day for 3 days, 1/day for 3 days, 1/2 /day for 4 days cefdinir 300 mg capsule 600 mg PO DAILY 10 Days Qty: 20 0RF Patient Instructions: Amitriptyline (By mouth), COPD (Chronic Obstructive Pulmonary Disease) (DC) Forms: Portal Instructions Follow Up Appointments: Follow up appt. with Dr. Haywood on Sep.21 @ 3:15pm [facility] Office #: [phone] Discharge Date/Time: 09/12/22 13:07
[2022-09-12] MEDS: PREGABALIN 100 MG CAPSULE 300 MG PO (08:38)
[2022-09-12] MEDS: FERROUS SULFATE 325 MG TABLET PO (08:38)
[2022-09-12] MEDS: BISACODYL 5 MG TABLET PO (08:38)
--- NOTE | 2022-09-12 09:15 | REH.PTDLY ---
Physical Therapy Daily Note PT Daily Note/Assess Start: 09/12/22 09:10 Freq: Status: Active Protocol: Document 09/12/22 09:10 PATRICIA (Rec: 09/12/22 09:15 PATRICIA [id number]) Physical Therapy Daily Note/Assessment Time In 08:42 Time Out 09:02 Pain Level 5 Pain Level 5 Subjective Pt states low back bothersome. No other complaints, agreeable to therapy. Therapeutic Exercise Minutes (minutes) 7 Therapeutic Exercise Units 0 Therapeutic Exercise Treatment Instructed in B LE seated exs in chair 10x ea with pt reporting fatigue in legs with smaller and slower ROM. Pt appears to be working hard in order to lift legs for marching and LAQ, especially L LE. Therapeutic Activity Minutes (minutes) 8 Therapeutic Activity Units 1 Bed Mobility Ability Standby Assistance Chair Transfer Ability Contact Guard Assist Therapeutic Activity Comments Pt able to go from supine to sit at EOB using bed rail, SBA . Sit to stand transfers with bed slightly elevated CGA. Gait training with RW 34 feet CGA with pt taking his time turning, L LE appears weak with turn. Pt sits up in chair post gait, CGA when sitting back. Pt has safety awareness of reaching back for chair. Total Therapy Minutes 15 Total Physical Therapy Units 1 Daily Note Summary Progressed gait distance today with some weakness noted in L LE but leg does not buckle or give out. Pt fatigues easily with seated B LE exs. Pt would benefit from HHPT at [facility] to improve strength for functional everyday activities .
[2022-09-12] MEDS: METHYLPREDNISOLONE SOD SUCC PF 125 MG/2 ML VIAL 60 MG IVP (09:36)
[2022-09-12] MEDS: BUDESONIDE 0.5 MG/2 ML AMPULE NEB IH (10:32)
--- NOTE | 2022-09-12 11:47 | CM.NOTE ---
Called [facility] to see if they could except pt, message left.
--- NOTE | 2022-09-12 12:07 | CM.NOTE ---
Explained to pt that [facility] has accepted him, they have tried to contact his telephone. Pt states he is charging his telephone but understands he needs to answer when they call. Called [facility] for pickup, they can pick pt up between 1:00 and 1:30. Pt and RN verbalize understanding. Pt verbalizes he has lark[facility] to cover [employer].
--- NOTE | 2022-09-13 11:53 | CM.DCFOLLOWU ---
First attempt at discharge follow up phone call today-no answer.
== END 2022-09-12 13:07 | disposition home health service (06) | DRG 871 ==
LOC: ER 18:46 → MS 19:34
PROVIDERS: Internal Medicine; Physician Assistant; Admitting Provider Family Medicine; Emergency Provider Emergency Medicine; PCP Family Medicine; Visit Provider Family Medicine
DX: A41.9 Sepsis, unspecified organism (principal); J18.9 Pneumonia, unspecified organism; J44.0 Chronic obstructive pulmonary disease with (acute) lower respiratory infection; J44.1 Chronic obstructive pulmonary disease with (acute) exacerbation; I42.9 Cardiomyopathy, unspecified; R65.20 Severe sepsis without septic shock; F17.210 Nicotine dependence, cigarettes, uncomplicated; R53.1 Weakness; R79.89 Other specified abnormal findings of blood chemistry; I16.0 Hypertensive urgency; R09.02 Hypoxemia; D69.6 Thrombocytopenia, unspecified; M54.50 Low back pain, unspecified; G89.29 Other chronic pain; D50.9 Iron deficiency anemia, unspecified; S90.512A Abrasion, left ankle, initial encounter; I25.2 Old myocardial infarction; Z79.899 Other long term (current) drug therapy; E83.51 Hypocalcemia; D70.9 Neutropenia, unspecified; I10 Essential (primary) hypertension; S80.11XA Contusion of right lower leg, initial encounter; T36.1X6A Underdosing of cephalosporins and other beta-lactam antibiotics, initial encounter; T38.0X6A Underdosing of glucocorticoids and synthetic analogues, initial encounter; Z20.822 Contact with and (suspected) exposure to COVID-19; W22.8XXA Striking against or struck by other objects, initial encounter; Y93.E3 Activity, vacuuming; Z91.148 Patient's other noncompliance with medication regimen for other reason; Z82.49 Family history of ischemic heart disease and other diseases of the circulatory system; Z82.5 Family history of asthma and other chronic lower respiratory diseases; Z82.3 Family history of stroke; Z80.9 Family history of malignant neoplasm, unspecified; Z79.51 Long term (current) use of inhaled steroids; Z79.52 Long term (current) use of systemic steroids; Z79.891 Long term (current) use of opiate analgesic; Z79.2 Long term (current) use of antibiotics
CPT/HCPCS: 0202U; 36415; 71045; 71275; 80048; 80053; 83605; 83880; 84484; 85025; 85610; 85730; 87040; 87070; 87106; 87205; 93005; 93306; 94640; 94667; 94668; 94761; 96365; 96366; 96367; 96368; 96372; 96375; 96376; 97162; 97165; 97530; 97535; 99285; G0378; J2930; Q9967

== ENCOUNTER 2022-09-14 10:16 | Inpatient (IN) | payer MEDICARE, MEDICAID, SELFPAY ==
[2022-09-14] VITALS (77 sets, daily range): BP systolic 94–175; BP diastolic 67–98; PULSE 79–107; RESP 15–34; TEMP 36.4–37.1; O2SAT 71–100; BMI 31.6; BMI 25.8
--- NOTE | 2022-09-14 10:24 | ECG_ITS ---
The [facility] Test Date: 2022-09-14 Pat Name: NITESH CALZADA Department: Room: - Gender: Male Twisting Operator: : 1955 Requested By: ROME VERDUZCO Order Number: [id number] Reading MD: ROME VERDUZCO Measurements Intervals [place] Rate: 101 P: 35 UT: 146 QRS: 12 QRSD: 94 T: 55 QT: 352 QTc: 410 Interpretive Statements 1120 Sinus tachycardia 9140 abnormal rhythm ECG Compared to ECG 09/10/2022 16:44:20 Sinus rhythm no longer present Ventricular premature complex(es) no longer present ST (T wave) deviation no longer present Left ventricular hypertrophy no longer present Electronically Signed On 09-15-2022 5:44:48 EDT by ROME VERDUZCO
--- NOTE | 2022-09-14 10:24 | XR_ITS ---
The [address] [address] Patient Name: NITESH CALZADA MRN: [id number] date: 1955 Sex: M Assigned Patient Location: ER Current Patient Location: ER Accession/Order Number: [id number] Exam Date: 09/14/2022 11:10 Report Date: 09/14/2022 11:35 At the request of: JW LYNN Procedure: XR chest 1V EXAM: XR chest 1V HISTORY: . sepsis . COMPARISON: 09/10/2022 TECHNIQUE: Single view of the chest FINDINGS: This is an expiratory chest. Heart is enlarged. Vascularity is unremarkable. Right lung is unremarkable. There is an infiltrate in the left lower lobe along with a small left effusion. XR/XR chest 1V IMPRESSION: 1. Expiratory chest. 2. Infiltrate in the left lower lobe along with a small left effusion. This has developed since the previous exam. Electronically authenticated by: VARUN BECKMAN Date: 09/14/2022 11:35
--- NOTE | 2022-09-14 10:29 | ED_ITS ---
HPI - General Adult General Chief complaint: Weakness Stated complaint: general weakness Time Seen by Provider: 09/14/22 10:24 Source: patient Mode of arrival: ambulance History of Present Illness HPI narrative: Patient is 67-year-old male who is presenting to the Emergency Room by EMS after a Fall at home. Patient nurses aide was around the corner, heard a thud, came into the room, and saw patient sitting against the wall. Patient had lost his balance, fell his back against a wall, and slid down couch/wall and when EMS arrived patient was sitting up. Patient has home healthcare coming in daily. Patient was just discharged 2 days ago. Patient has multiple comorbidities. Patient was admitted for acute exacerbation of chronic obstructive pulmonary disease, weakness, Patient is a full code. Patient was recently admitted for acute hypoxia secondary to acute exacerbation of chronic obstructive pulmonary disease secondary to pneumonia noted on CT scan. Patient failed outpatient therapy. Patient was admitted for IV antibiotics. Patient was weaned off his oxygen, he does not wear action at home. Patient was amulet prior distress. Patient says it is mainly uses a wheelchair at home. Patient at home health services that was following up with him. Patient was discharged with prescription for Omnicef. Patient is complaining of mild headache. Patient is uncertain if he has his head or not. According to the EMS report a nurses aide, he did not, he just slid down in a seated position. Patient has very dry mouth, and multiple chronic wounds to his right lower leg, left arm. Patient is lethargic, very dry mouth, difficult to understand his speech. Patient knows that he is in [facility], knows his name, difficult to understand what he was sitting about time of year, maybe confused to time of month and year. Patient is not on oxygen. Patient was very unkempt not secondary to his own doing, just needing additional care. All systems are negative except as noted/marked. All systems reviewed and otherwise negative. . Nurses note and vital signs reviewed and patient is not hypoxic. General: The patient appears Lethargic, slightly listless, possibly toxic. Unkempt, looks ill, very dry mouth, difficult to hold a conversation secondary to dry mucous membranes and very dry tongue. Skin: Warm, Patient has multiple chronic wounds to bilateral arms, legs.dry, no pallor noted. There is no rash noted. No petechiae, purpura. Head: Normocephalic, atraumatic Eye: Normal conjunctiva, no drainage, EOMI. PERRL Ears, Nose, Mouth, and Throat: oral mucosa is moist. Nares patent. Mouth without vesicles. Cardiovascular: Regular Rate and Rhythm, no murmur, gallop, rub Respiratory: Patient is in no distress, no accessory muscle use, lungs are clear to auscultation, no wheezing, rales or rhonchi Back: non-tender, no CVA tenderness bilaterally to percussion. No CT LS midline pain GI: soft, no tenderness to palpation, no masses appreciated. No rebound, guarding, or rigidity noted. No flank pain bilateral, No distentio. : Patient is circumcised, 2 descended testicles, patient has significant ecchymosis to scrotum, perineum, unknown injury, no palpable hematoma. No tenderness to palpation to bilateral testicles. No known injury that we're aware of. Patient does sit in a wheelchair. Patient is not complaining any pain to the penis or testicles. Musculoskeletal: Patient has full range of motion of all of the extremities, no motor, sensory, or focal neurological deficits Neurological: A&O x2, Initially confused to time, we will reassess, Her was 2 secondary KADEN, no strokelike signs or symptoms. Psychiatric: Cooperative Related Data Home Medications Medication Instructions Recorded Confirmed albuterol sulfate 90 mcg/actuation 2 puff inhalation Q4H PRN 09/06/22 09/14/22 aerosol inhaler (Ventolin HFA) shortness of breath or wheezing alprazolam 0.5 mg tablet 0.5 mg PO TID PRN anxiety 09/06/22 09/14/22 carisoprodol 350 mg tablet 350 mg PO TID PRN muscle pain 09/06/22 09/14/22 fluticasone fur. 100 mcg-umeclid 1 inh inhalation DAILY 09/06/22 09/14/22 62.5 mcg-vilant 25 mcg inhalat.powder (Trelegy Ellipta) hydrocodone 5 mg-acetaminophen 325 1 tab PO Q4H PRN pain 09/06/22 09/14/22 mg tablet pregabalin 300 mg capsule 300 mg PO BID 09/06/22 09/14/22 sacubitril 97 mg-valsartan 103 mg 1 tab PO BID 09/06/22 09/14/22 tablet (Entresto) alprazolam 0.25 mg tablet mg 09/14/22 Previous Rx's Medication Instructions Recorded cefdinir 300 mg capsule 600 mg PO DAILY 10 days #20 caps 09/09/22 clonidine HCl 0.1 mg tablet 0.1 mg PO TID #90 tabs 09/09/22 prednisone 10 mg tablet 50 mg PO DAILY #47 tabs 09/09/22 amitriptyline 50 mg tablet 50 mg PO .qhs #30 tabs 09/12/22 Allergies Allergy/AdvReac Type Severity Reaction Status Date / Time No Known Drug Allergies Allergy Verified 09/06/22 16:50 [facility] Medical History (Updated 09/14/22 @ 12:13 by Odilon Saxena MD) Family History (Updated 09/06/22 @ 22:59 by Guerline Stern) Uncle Family history of CHF (congestive heart failure) Family history of COPD (chronic obstructive pulmonary disease) Family history of cancer Father Family history of cancer Other Family history of stroke Social History (Updated 09/14/22 @ 13:09 by Lynne Logan) Within the past year, how often did you have a drink containing alcohol: monthly or less Smoking status: Heavy tobacco smoker Do you use any of these nicotine containing products: e-cigarettes Non-prescribed substance use: denies use Previous occupational history: retired Highest level of school completed/degree received: high school graduate Are you now , , , , never or living with a partner: In a typical week, how many times do you talk on the telephone with family, friends, or neighbors: twice per week How often do you get together with friends or relatives: once per week How often do you attend methodist or adventist services: never Do you belong to any clubs or organizations such as methodist groups unions, fraternal or athletic groups, or school groups: no Total score: 1 Score interpretation: A score of less than or equal to 1 indicates the most socially isolated. Little interest or pleasure in doing things: not at all Feeling down, depressed, or hopeless: not at all Feel stressed/tense/nervous/anxious/difficulty sleeping: not at all Do you think of yourself as: straight/heterosexual Gender Identity: male Exam Constitutional Vital Signs, click to edit/add: Last Vital Signs Temp 97.5 F L 09/14/22 12:43 Pulse 92 H 09/14/22 14:00 Resp 15 09/14/22 12:15 BP 175/88 H 09/14/22 12:43 Pulse Ox 98 09/14/22 14:14 O2 Del Method Nasal Cannula 09/14/22 14:14 O2 Flow Rate 2 09/14/22 14:14 Course Vital Signs Vital signs: Vital Signs Temperature 98.1 F 09/14/22 10:17 Pulse Rate 101 H 09/14/22 10:17 Respiratory Rate 16 09/14/22 10:17 Blood Pressure 94/67 09/14/22 10:17 Pulse Oximetry 96 09/14/22 10:17 Oxygen Delivery Method Room Air 09/14/22 10:17 Temperature 97.5 F L 09/14/22 12:43 Pulse Rate 92 H 09/14/22 14:00 Respiratory Rate 15 09/14/22 12:15 Blood Pressure 175/88 H 09/14/22 12:43 Pulse Oximetry 98 09/14/22 14:14 Oxygen Delivery Method Nasal Cannula 09/14/22 14:14 Oxygen Delivery Flow Rate 2 09/14/22 14:14 Medical Decision Making [facility] Narrative Medical decision making narrative: Patient CT of the brain shows no significant findings, Ultrasound of the scrotum show no significant signs of infection besides swollen skin secondary to ecchymosis. Small hydrocele noted. Chest x-ray shows decided pneumonia with small effusion persisting, no acute changes. Patient's clinical picture presents patient looking much worse than his radiographic and lab testing show. Patient has small elevated white blood cells, patient's Electrolytes show no significant changes. Patient was given 1800 mL of fluid, patient responded somewhat better. Patient is still very groggy/lethargic. Patient lives were wet, tongue was moist and, patient was talking better but not perfect. Patient's case will be accepted for admission to Dr. Haywood. Patient will be placed in the ICU for close evaluation. Additional antibiotic started. Patient was started on Omnicef orally when he went home 2 days ago. The [facility], case mgr, has been notified of patient's admission to help with discharge planning early since today's Saturday. Patient be admitted to the intensive care unit. Medical Records Medical records reviewed: Yes I reviewed the patient's medical records Medical records narrative: I reviewed the discharge summary from 2 days ago Lab Data Lab results reviewed: Yes I reviewed the patient's lab results Labs: Lab Results 09/14/22 09/14/22 Range/Units 10:47 10:59 WBC 8.1 (4.0-11.0) 10^3/uL RBC 3.55 L (4.70-6.10) 10^6/uL Hgb 12.7 L (14.0-18.0) g/dL Hct 37.9 L (42.0-54.0) % MCV 106.8 H (80.0-94.0) fL MCH 35.8 H (25.9-34.0) pg MCHC 33.5 (29.9-35.2) g/dL RDW 14.7 (11.0-15.0) % Plt Count 195 (150-450) 10^3/uL MPV 9.8 (9.5-13.5) fL Neut % (Auto) 71.7 (43.0-75.0) % Lymph % (Auto) 13.0 L (20.5-60.0) % [place] % (Auto) 13.0 H (1.7-12.0) % Eos % (Auto) 0.2 L (0.9-7.0) % Baso % (Auto) 0.1 L (0.2-2.0) % Neut # (Auto) 5.8 (1.4-6.5) 10^3/uL Lymph # (Auto) 1.1 L (1.2-3.8) 10^3/uL [place] # (Auto) 1.1 H (0.3-0.8) 10^3/uL Eos # (Auto) 0.0 (0.0-0.7) 10^3/uL Baso # (Auto) 0.0 (0.0-0.1) 10^3/uL Abs Immat Gran (auto) 0.16 H (0.00-0.03) 10^3/uL Imm/Tot Granulo (auto) 2.0 H (0.0-0.5) % PT 10.3 (9.0-11.6) sec INR 0.97 Sodium 139 (136-145) mmol/L Potassium 3.5 (3.5-5.1) mmol/L Chloride 103 (98-107) mmol/L Carbon Dioxide 30.6 (21.0-32.0) mmol/L Anion Gap 8.9 BUN 24.0 H (7.0-18.0) mg/dL Creatinine 0.77 (0.70-1.30) mg/dL Est GFR ( Amer) >60 (>=60) Est GFR (Non-Af Amer) >60 (>=60) BUN/Creatinine Ratio 31.2 Glucose 82 (74-106) mg/dL Lactate 0.9 (0.4-2.0) mmol/L Calcium 8.4 L (8.5-10.1) mg/dL Magnesium 2.3 (1.8-2.4) mg/dL Total Bilirubin 0.6 (0.2-1.0) mg/dL AST 29 (15-37) U/L ALT 66 H (16-63) U/L Alkaline Phosphatase 79 (46-116) U/L Ammonia 16 (11-32) umol/L Troponin I High Sens 7.5 (4.0-76.1) pg/mL Total Protein 6.3 L (6.4-8.2) g/dL Albumin 3.2 L (3.4-5.0) g/dL Globulin 3.1 g/dL Albumin/Globulin Ratio 1.0 Lipase 41.0 L (73.0-393.0) U/L Blood Type A Positive Antibody Screen Negative ECG Data Attestation: I personally reviewed and interpreted this ECG as follows: Interpretation: EKG interpretation. Sinus tachycardia at 101. Normal axis deviation. No acute ST elevation, no acute ectopy. QTC of 410. Discharge Plan Discharge Chief Complaint: Weakness Clinical Impression: Chronic wound, Bruise of scrotum, Left lower lobe pneumonia, Fall, Dehydration Patient Disposition: Admitted As Inpatient Condition: Fair Discharge Date/Time: 09/14/22 12:30
--- NOTE | 2022-09-14 10:39 | US_ITS ---
[address] [address] Patient Name: NITESH CALZADA MRN: [id number] date: 1955 Sex: M Assigned Patient Location: ER Current Patient Location: ER Accession/Order Number: [id number] Exam Date: 09/14/2022 10:40 Report Date: 09/14/2022 11:47 At the request of: JW LYNN Procedure: US scrotum doppler EXAMINATION: US scrotum doppler HISTORY: scrotal ecchymosis COMPARISON: No relevant comparison available. TECHNIQUE: High-resolution sonographic imaging of the scrotum and contents was performed. FINDINGS: RIGHT: TESTICLE: Homogeneous echotexture. No visible mass. Color Doppler flow is present. Spectral Doppler demonstrates normal arterial waveform and flow, 5/2 cm/s (PSV/EDV), and normal venous wave flow averaging 1 cm/s. EPIDIDYMIS: Normal size and echogenicity. OTHER: Small hydrocele. Abnormal skin thickening, 5 mm. LEFT: TESTICLE: Homogeneous echotexture. No visible mass. Color Doppler flow is present. Spectral Doppler demonstrates arterial waveform and flow, 4/3 cm/s (PSV/EDV), and normal venous flow averaging 2 cm/s. EPIDIDYMIS: Normal size and echogenicity. OTHER: Small hydrocele. Abnormal skin thickening, 6 mm. US/US scrotum doppler IMPRESSION: 1. Small bilateral hydroceles of uncertain etiology. 2. Bilateral abnormal skin thickening of uncertain etiology. 3. No appreciable abnormality of the testicles or epididymides. Electronically authenticated by: GARLAND COPELAND Date: 09/14/2022 11:47
--- NOTE | 2022-09-14 10:39 | CT_ITS ---
The [address] [address] Patient Name: NITESH CALZADA MRN: [id number] date: 1955 Sex: M Assigned Patient Location: ER Current Patient Location: ER Accession/Order Number: [id number] Exam Date: 09/14/2022 11:10 Report Date: 09/14/2022 11:48 At the request of: JW LYNN Procedure: CT head/brain wo con EXAM: CT head/brain wo con HISTORY: fall COMPARISON: 09/06/2022 TECHNIQUE: Axial CT images were obtained of the head without intravenous contrast. Multiplanar reconstructions were performed. FINDINGS: No acute intracranial hemorrhage. No acute loss of baldwin/white differentiation. There are moderate patchy areas of deep white matter hypoattenuation, similar in appearance to the previous exam. The ventricles and sulci are normal in appearance. The osseous structures are unremarkable. No soft tissue abnormality identified. Postoperative changes are present of a prior antrectomy with mild mucosal thickening present in the paranasal sinuses. Cerumen is noted in the external auditory canals. CT/CT head/brain wo con IMPRESSION: 1. No acute intracranial abnormality. 2. Moderate nonspecific chronic deep white matter disease. 3. Postoperative changes to the paranasal sinuses with mild chronic sinusitis. 4. Cerumen present in the external auditory canals. Electronically authenticated by: MOSHE CHRISTIAN Date: 09/14/2022 11:48
--- NOTE | 2022-09-14 10:48 | PC.NURSE ---
pt with wounds of different staging to hisleft ankle nevarez area pt with skin tear to rt elbow cleansed with saline and telfa palced and kerlix pt with drymouth and hard to speak oral care given pt with 22 g to rt index finger initiated pt with large amt of dark bruising noted to testicles and extending to perineum area
[2022-09-14 11:11] LABS: Basophils Percent Auto 0.1 % (0.2-2.0); Eosinophils Percent Auto 0.2 % (0.9-7.0); Hematocrit 37.9 % (42.0-54.0); Hemoglobin 12.7 g/dL (14.0-18.0); Immature Granulocytes Abs Auto 0.16 10^3/uL (0.00-0.03); Lymphocytes Absolute Auto 1.1 10^3/uL (1.2-3.8); Mean Corpuscular HGB Conc 33.5 g/dL (29.9-35.2); Mean Corpuscular Hemoglobin 35.8 pg (25.9-34.0); Mean Corpuscular Volume 106.8 fL (80.0-94.0); Mean Platelet Volume 9.8 fL (9.5-13.5); Monocytes Absolute Auto 1.1 10^3/uL (0.3-0.8); Neutrophils Absolute Auto 5.8 10^3/uL (1.4-6.5); Neutrophils Percent Auto 71.7 % (43.0-75.0); Platelet Count 195 10^3/uL (150-450); Red Blood Count 3.55 10^6/uL (4.70-6.10); Red Cell Distribution Width 14.7 % (11.0-15.0); White Blood Count 8.1 10^3/uL (4.0-11.0)
[2022-09-14 11:26] LABS: INR 0.97; Prothrombin Time 10.3 sec (9.0-11.6)
[2022-09-14 11:36] LABS: Troponin I High Sensitivity 7.5 pg/mL (4.0-76.1)
[2022-09-14 11:38] LABS: Lactate/Lactic Acid 0.9 mmol/L (0.4-2.0)
[2022-09-14 11:44] LABS: Alanine Aminotransferase 66 U/L (16-63); Albumin Level 3.2 g/dL (3.4-5.0); Alkaline Phosphatase 79 U/L (46-116); Anion Gap 8.9; Aspartate Amino Transferase 29 U/L (15-37); BUN Creatinine Ratio 31.2; Bilirubin Total 0.6 mg/dL (0.2-1.0); Calcium 8.4 mg/dL (8.5-10.1); Carbon Dioxide 30.6 mmol/L (21.0-32.0); Chloride 103 mmol/L (98-107); Estimated GFR (African America >60 (>=60); Estimated GFR (Non-African Ame >60 (>=60); Globulin 3.1 g/dL; Glucose 82 mg/dL (74-106); Magnesium 2.3 mg/dL (1.8-2.4); Potassium 3.5 mmol/L (3.5-5.1); Sodium 139 mmol/L (136-145); Total Protein 6.3 g/dL (6.4-8.2)
[2022-09-14 12:06] LABS: Ammonia 16 umol/L (11-32)
--- NOTE | 2022-09-14 12:25 | ED_ITS ---
Documented by User: Odilon Saxena MD 09/14/22 13:29 HPI - Anxiety General Chief Complaint: Weakness Stated Complaint: general weakness Time Seen by Provider: 09/14/22 10:24 Related Data Home Medications Medication Instructions Recorded Confirmed albuterol sulfate 90 mcg/actuation 2 puff inhalation Q4H PRN 09/06/22 09/14/22 aerosol inhaler (Ventolin HFA) shortness of breath or wheezing alprazolam 0.5 mg tablet 0.5 mg PO TID PRN anxiety 09/06/22 09/14/22 carisoprodol 350 mg tablet 350 mg PO TID PRN muscle pain 09/06/22 09/14/22 fluticasone fur. 100 mcg-umeclid 1 inh inhalation DAILY 09/06/22 09/14/22 62.5 mcg-vilant 25 mcg inhalat.powder (Trelegy Ellipta) hydrocodone 5 mg-acetaminophen 325 1 tab PO Q4H PRN pain 09/06/22 09/14/22 mg tablet pregabalin 300 mg capsule 300 mg PO BID 09/06/22 09/14/22 sacubitril 97 mg-valsartan 103 mg 1 tab PO BID 09/06/22 09/14/22 tablet (Entresto) alprazolam 0.25 mg tablet mg 09/14/22 Previous Rx's Medication Instructions Recorded cefdinir 300 mg capsule 600 mg PO DAILY 10 days #20 caps 09/09/22 clonidine HCl 0.1 mg tablet 0.1 mg PO TID #90 tabs 09/09/22 prednisone 10 mg tablet 50 mg PO DAILY #47 tabs 09/09/22 amitriptyline 50 mg tablet 50 mg PO .qhs #30 tabs 09/12/22 Allergies Allergy/AdvReac Type Severity Reaction Status Date / Time No Known Drug Allergies Allergy Verified 09/06/22 16:50 [facility] Medical History (Updated 09/14/22 @ 12:13 by Odilon Saexna MD) Family History (Updated 09/06/22 @ 22:59 by Guerline Stern) Uncle Family history of CHF (congestive heart failure) Family history of COPD (chronic obstructive pulmonary disease) Family history of cancer Father Family history of cancer Other Family history of stroke Social History (Updated 09/14/22 @ 13:09 by Lynne Logan) Within the past year, how often did you have a drink containing alcohol: monthly or less Smoking status: Heavy tobacco smoker Do you use any of these nicotine containing products: e-cigarettes Non-prescribed substance use: denies use Previous occupational history: retired Highest level of school completed/degree received: high school graduate Are you now , , , , never or living with a partner: In a typical week, how many times do you talk on the telephone with family, friends, or neighbors: twice per week How often do you get together with friends or relatives: once per week How often do you attend congregational or taoism services: never Do you belong to any clubs or organizations such as congregational groups unions, [employer] or athletic groups, or school groups: no Total score: 1 Score interpretation: A score of less than or equal to 1 indicates the most socially isolated. Little interest or pleasure in doing things: not at all Feeling down, depressed, or hopeless: not at all Feel stressed/tense/nervous/anxious/difficulty sleeping: not at all Do you think of yourself as: straight/heterosexual Gender Identity: male Exam Constitutional Vital Signs, click to edit/add: Last Vital Signs Temp 97.5 F L 09/14/22 12:43 Pulse 85 09/14/22 13:04 Resp 15 09/14/22 12:15 BP 175/88 H 09/14/22 12:43 Pulse Ox 94 L 09/14/22 12:43 O2 Del Method Nasal Cannula 09/14/22 12:43 O2 Flow Rate 2 09/14/22 12:43 Course Vital Signs Vital signs: Vital Signs Temperature 98.1 F 09/14/22 10:17 Pulse Rate 101 H 09/14/22 10:17 Respiratory Rate 16 09/14/22 10:17 Blood Pressure 94/67 09/14/22 10:17 Pulse Oximetry 96 09/14/22 10:17 Oxygen Delivery Method Room Air 09/14/22 10:17 Temperature 97.5 F L 09/14/22 12:43 Pulse Rate 85 09/14/22 13:04 Respiratory Rate 15 09/14/22 12:15 Blood Pressure 175/88 H 09/14/22 12:43 Pulse Oximetry 94 L 09/14/22 12:43 Oxygen Delivery Method Nasal Cannula 09/14/22 12:43 Oxygen Delivery Flow Rate 2 09/14/22 12:43 MDM - Anxiety Lab Data Attestation: I reviewed the patient's lab results. Labs: Lab Results 09/14/22 09/14/22 Range/Units 10:47 10:59 WBC 8.1 (4.0-11.0) 10^3/uL RBC 3.55 L (4.70-6.10) 10^6/uL Hgb 12.7 L (14.0-18.0) g/dL Hct 37.9 L (42.0-54.0) % MCV 106.8 H (80.0-94.0) fL MCH 35.8 H (25.9-34.0) pg MCHC 33.5 (29.9-35.2) g/dL RDW 14.7 (11.0-15.0) % Plt Count 195 (150-450) 10^3/uL MPV 9.8 (9.5-13.5) fL Neut % (Auto) 71.7 (43.0-75.0) % Lymph % (Auto) 13.0 L (20.5-60.0) % [place] % (Auto) 13.0 H (1.7-12.0) % Eos % (Auto) 0.2 L (0.9-7.0) % Baso % (Auto) 0.1 L (0.2-2.0) % Neut # (Auto) 5.8 (1.4-6.5) 10^3/uL Lymph # (Auto) 1.1 L (1.2-3.8) 10^3/uL [place] # (Auto) 1.1 H (0.3-0.8) 10^3/uL Eos # (Auto) 0.0 (0.0-0.7) 10^3/uL Baso # (Auto) 0.0 (0.0-0.1) 10^3/uL Abs Immat Gran (auto) 0.16 H (0.00-0.03) 10^3/uL Imm/Tot Granulo (auto) 2.0 H (0.0-0.5) % PT 10.3 (9.0-11.6) sec INR 0.97 Sodium 139 (136-145) mmol/L Potassium 3.5 (3.5-5.1) mmol/L Chloride 103 (98-107) mmol/L Carbon Dioxide 30.6 (21.0-32.0) mmol/L Anion Gap 8.9 BUN 24.0 H (7.0-18.0) mg/dL Creatinine 0.77 (0.70-1.30) mg/dL Est GFR ( Amer) >60 (>=60) Est GFR (Non-Af Amer) >60 (>=60) BUN/Creatinine Ratio 31.2 Glucose 82 (74-106) mg/dL Lactate 0.9 (0.4-2.0) mmol/L Calcium 8.4 L (8.5-10.1) mg/dL Magnesium 2.3 (1.8-2.4) mg/dL Total Bilirubin 0.6 (0.2-1.0) mg/dL AST 29 (15-37) U/L ALT 66 H (16-63) U/L Alkaline Phosphatase 79 (46-116) U/L Ammonia 16 (11-32) umol/L Troponin I High Sens 7.5 (4.0-76.1) pg/mL Total Protein 6.3 L (6.4-8.2) g/dL Albumin 3.2 L (3.4-5.0) g/dL Globulin 3.1 g/dL Albumin/Globulin Ratio 1.0 Lipase 41.0 L (73.0-393.0) U/L Blood Type A Positive Antibody Screen Negative Discharge Plan Discharge Chief Complaint: Weakness Clinical Impression: Chronic wound, Bruise of scrotum, Left lower lobe pneumonia, Fall, Dehydration Patient Disposition: Admitted As Inpatient Condition: Fair Discharge Date/Time: 09/14/22 12:30 Documented by User: Lynne Logan HPI - Anxiety General Chief Complaint: Weakness Stated Complaint: general weakness Time Seen by Provider: 09/14/22 10:24 Source: patient Mode of arrival: ambulance Related Data Home Medications Medication Instructions Recorded Confirmed albuterol sulfate 90 mcg/actuation 2 puff inhalation Q4H PRN 09/06/22 09/14/22 aerosol inhaler (Ventolin HFA) shortness of breath or wheezing alprazolam 0.5 mg tablet 0.5 mg PO TID PRN anxiety 09/06/22 09/14/22 carisoprodol 350 mg tablet 350 mg PO TID PRN muscle pain 09/06/22 09/14/22 fluticasone fur. 100 mcg-umeclid 1 inh inhalation DAILY 09/06/22 09/14/22 62.5 mcg-vilant 25 mcg inhalat.powder (Trelegy Ellipta) hydrocodone 5 mg-acetaminophen 325 1 tab PO Q4H PRN pain 09/06/22 09/14/22 mg tablet pregabalin 300 mg capsule 300 mg PO BID 09/06/22 09/14/22 sacubitril 97 mg-valsartan 103 mg 1 tab PO BID 09/06/22 09/14/22 tablet (Entresto) alprazolam 0.25 mg tablet mg 09/14/22 Previous Rx's Medication Instructions Recorded cefdinir 300 mg capsule 600 mg PO DAILY 10 days #20 caps 09/09/22 clonidine HCl 0.1 mg tablet 0.1 mg PO TID #90 tabs 09/09/22 prednisone 10 mg tablet 50 mg PO DAILY #47 tabs 09/09/22 amitriptyline 50 mg tablet 50 mg PO .qhs #30 tabs 09/12/22 Allergies Allergy/AdvReac Type Severity Reaction Status Date / Time No Known Drug Allergies Allergy Verified 09/06/22 16:50 [facility] Medical History (Updated 09/14/22 @ 12:13 by Odilon Saxena MD) Family History (Updated 09/06/22 @ 22:59 by Guerline Stern) Uncle Family history of CHF (congestive heart failure) Family history of COPD (chronic obstructive pulmonary disease) Family history of cancer Father Family history of cancer Other Family history of stroke Social History (Updated 09/14/22 @ 13:09 by Lynne Logan) Within the past year, how often did you have a drink containing alcohol: monthly or less Smoking status: Heavy tobacco smoker Do you use any of these nicotine containing products: e-cigarettes Non-prescribed substance use: denies use Previous occupational history: retired Highest level of school completed/degree received: high school graduate Are you now , , , , never or living with a partner: In a typical week, how many times do you talk on the telephone with family, friends, or neighbors: twice per week How often do you get together with friends or relatives: once per week How often do you attend congregational or taoism services: never Do you belong to any clubs or organizations such as congregational groups unions, [employer] or athletic groups, or school groups: no Total score: 1 Score interpretation: A score of less than or equal to 1 indicates the most socially isolated. Little interest or pleasure in doing things: not at all Feeling down, depressed, or hopeless: not at all Feel stressed/tense/nervous/anxious/difficulty sleeping: not at all Do you think of yourself as: straight/heterosexual Gender Identity: male Exam Constitutional Vital Signs, click to edit/add: Last Vital Signs Temp 97.5 F L 09/14/22 12:43 Pulse 85 09/14/22 13:04 Resp 15 09/14/22 12:15 BP 175/88 H 09/14/22 12:43 Pulse Ox 94 L 09/14/22 12:43 O2 Del Method Nasal Cannula 09/14/22 12:43 O2 Flow Rate 2 09/14/22 12:43 Course Vital Signs Vital signs: Vital Signs Temperature 98.1 F 09/14/22 10:17 Pulse Rate 101 H 09/14/22 10:17 Respiratory Rate 16 09/14/22 10:17 Blood Pressure 94/67 09/14/22 10:17 Pulse Oximetry 96 09/14/22 10:17 Oxygen Delivery Method Room Air 09/14/22 10:17 Temperature 97.5 F L 09/14/22 12:43 Pulse Rate 85 09/14/22 13:04 Respiratory Rate 15 09/14/22 12:15 Blood Pressure 175/88 H 09/14/22 12:43 Pulse Oximetry 94 L 09/14/22 12:43 Oxygen Delivery Method Nasal Cannula 09/14/22 12:43 Oxygen Delivery Flow Rate 2 09/14/22 12:43 MDM - Anxiety Lab Data Labs: Lab Results 09/14/22 09/14/22 Range/Units 10:47 10:59 WBC 8.1 (4.0-11.0) 10^3/uL RBC 3.55 L (4.70-6.10) 10^6/uL Hgb 12.7 L (14.0-18.0) g/dL Hct 37.9 L (42.0-54.0) % MCV 106.8 H (80.0-94.0) fL MCH 35.8 H (25.9-34.0) pg MCHC 33.5 (29.9-35.2) g/dL RDW 14.7 (11.0-15.0) % Plt Count 195 (150-450) 10^3/uL MPV 9.8 (9.5-13.5) fL Neut % (Auto) 71.7 (43.0-75.0) % Lymph % (Auto) 13.0 L (20.5-60.0) % [place] % (Auto) 13.0 H (1.7-12.0) % Eos % (Auto) 0.2 L (0.9-7.0) % Baso % (Auto) 0.1 L (0.2-2.0) % Neut # (Auto) 5.8 (1.4-6.5) 10^3/uL Lymph # (Auto) 1.1 L (1.2-3.8) 10^3/uL [place] # (Auto) 1.1 H (0.3-0.8) 10^3/uL Eos # (Auto) 0.0 (0.0-0.7) 10^3/uL Baso # (Auto) 0.0 (0.0-0.1) 10^3/uL Abs Immat Gran (auto) 0.16 H (0.00-0.03) 10^3/uL Imm/Tot Granulo (auto) 2.0 H (0.0-0.5) % PT 10.3 (9.0-11.6) sec INR 0.97 Sodium 139 (136-145) mmol/L Potassium 3.5 (3.5-5.1) mmol/L Chloride 103 (98-107) mmol/L Carbon Dioxide 30.6 (21.0-32.0) mmol/L Anion Gap 8.9 BUN 24.0 H (7.0-18.0) mg/dL Creatinine 0.77 (0.70-1.30) mg/dL Est GFR ( Amer) >60 (>=60) Est GFR (Non-Af Amer) >60 (>=60) BUN/Creatinine Ratio 31.2 Glucose 82 (74-106) mg/dL Lactate 0.9 (0.4-2.0) mmol/L Calcium 8.4 L (8.5-10.1) mg/dL Magnesium 2.3 (1.8-2.4) mg/dL Total Bilirubin 0.6 (0.2-1.0) mg/dL AST 29 (15-37) U/L ALT 66 H (16-63) U/L Alkaline Phosphatase 79 (46-116) U/L Ammonia 16 (11-32) umol/L Troponin I High Sens 7.5 (4.0-76.1) pg/mL Total Protein 6.3 L (6.4-8.2) g/dL Albumin 3.2 L (3.4-5.0) g/dL Globulin 3.1 g/dL Albumin/Globulin Ratio 1.0 Lipase 41.0 L (73.0-393.0) U/L Blood Type A Positive Antibody Screen Negative Discharge Plan Discharge Chief Complaint: Weakness Clinical Impression: Chronic wound, Bruise of scrotum, Left lower lobe pneumonia, Fall, Dehydration Patient Disposition: Admitted As Inpatient Condition: Fair Discharge Date/Time: 09/14/22 12:30
[2022-09-14 14:20] LABS: ABG PCO2 45.9 mmHg (35.0-45.0); pH ABG 7.434 (7.350-7.450)
[2022-09-14 14:21] LABS: Allen Test POSITIVE (POSITIVE); Base Excess ABG 6.5 mmol/L (-2.0-2.0); HCO3 ABG 30.7 mmol/L (22.0-26.0); Liters per Minute 2; O2 Mode NC; Oxygen Saturation ABG 91.5 %; Puncture Site RR
[2022-09-14] MEDS: BENZONATATE 100 MG CAPSULE 200 MG PO ×2 (14:25→21:11)
[2022-09-14] MEDS: LEVOFLOXACIN IN DEXTROSE 5 % 750 MG/150 ML IV.SOLN 100 MG IV (14:25)
[2022-09-14] MEDS: CLONIDINE HCL 0.1 MG TABLET PO ×2 (14:26→21:12)
[2022-09-14] MEDS: NICOTINE 21 MG PATCH.TD24 TD (14:26)
[2022-09-14] MEDS: METHYLPREDNISOLONE SOD SUCC PF 125 MG/2 ML VIAL 60 MG IVP ×2 (14:27→21:11)
[2022-09-14] MEDS: LACTATED RINGER'S SOLUTION 1,000 ML 100 ML IV ×2 (14:39→23:14)
--- NOTE | 2022-09-14 15:14 | CM.NOTE ---
Called Mariela at [facility], beds available. Faxed clinical to [facility].
[2022-09-14] MEDS: PIPERACILLIN SODIUM/TAZOBACTAM 3.375 GM in 0.9 % SODIUM CHLORIDE 50 ML IV ×2 (15:48→23:13)
[2022-09-14] MEDS: IPRATROPIUM/ALBUTEROL SULFATE 3 ML AMPUL.NEB IH ×2 (16:07→20:35)
--- NOTE | 2022-09-14 16:11 | RESP.RT ---
decreased to 1 LPM
--- NOTE | 2022-09-14 17:20 | P.HP_ITS ---
H&P: HPI History of Present Illness Chief complaint: GENERAL WEAKNESS/ALTERED MENTAL STATUS Narrative: Patient found by home health worker slumped on the floor. He states usually there for a few minutes but based on evidence found at the scene that seems like a longer period of time although not extensive. Coffee on the table still warm. [facility] Medical History (Updated 09/14/22 @ 12:13 by Odilon Saxena MD) Family History (Updated 09/06/22 @ 22:59 by Guerline Stern) Uncle Family history of CHF (congestive heart failure) Family history of COPD (chronic obstructive pulmonary disease) Family history of cancer Father Family history of cancer Other Family history of stroke Social History (Updated 09/14/22 @ 13:09 by Lynne Logan) Within the past year, how often did you have a drink containing alcohol: monthly or less Smoking status: Heavy tobacco smoker Do you use any of these nicotine containing products: e-cigarettes Non-prescribed substance use: denies use Previous occupational history: retired Highest level of school completed/degree received: high school graduate Are you now , , , , never or living with a partner: In a typical week, how many times do you talk on the telephone with family, friends, or neighbors: twice per week How often do you get together with friends or relatives: once per week How often do you attend restoration or nondenominational services: never Do you belong to any clubs or organizations such as restoration groups unions, fraternal or athletic groups, or school groups: no Total score: 1 Score interpretation: A score of less than or equal to 1 indicates the most socially isolated. Little interest or pleasure in doing things: not at all Feeling down, depressed, or hopeless: not at all Feel stressed/tense/nervous/anxious/difficulty sleeping: not at all Do you think of yourself as: straight/heterosexual Gender Identity: male Meds Home Medications and Allergies Home Medications Medication Instructions Recorded Confirmed Type albuterol sulfate 90 mcg/actuation 2 puff inhalation Q4H PRN 09/06/22 09/14/22 History aerosol inhaler (Ventolin HFA) shortness of breath or wheezing alprazolam 0.5 mg tablet 0.5 mg PO TID PRN anxiety 09/06/22 09/14/22 History carisoprodol 350 mg tablet 350 mg PO TID PRN muscle pain 09/06/22 09/14/22 His tory fluticasone fur. 100 mcg-umeclid 1 inh inhalation DAILY 09/06/22 09/14/22 History 62.5 mcg-vilant 25 mcg inhalat.powder (Trelegy Ellipta) hydrocodone 5 mg-acetaminophen 325 1 tab PO Q4H PRN pain 09/06/22 09/14/22 History mg tablet pregabalin 300 mg capsule 300 mg PO BID 09/06/22 09/14/22 History sacubitril 97 mg-valsartan 103 mg 1 tab PO BID 09/06/22 09/14/22 History tablet (Entresto) cefdinir 300 mg capsule 600 mg PO DAILY 10 days #20 caps 09/09/22 09/14/22 Rx clonidine HCl 0.1 mg tablet 0.1 mg PO TID #90 tabs 09/09/22 09/14/22 Rx prednisone 10 mg tablet 50 mg PO DAILY #47 tabs 09/09/22 09/14/22 Rx amitriptyline 50 mg tablet 50 mg PO .qhs #30 tabs 09/12/22 09/14/22 Rx alprazolam 0.25 mg tablet mg 09/14/22 History Allergies Allergy/AdvReac Type Severity Reaction Status Date / Time No Known Drug Allergies Allergy Verified 09/06/22 16:50 Exam Constitutional Vital Signs, click to edit/add: Last Vital Signs Temp 97.7 F 09/15/22 10:00 Pulse 84 09/15/22 10:00 Resp 24 09/15/22 10:00 BP 111/65 09/15/22 10:00 Pulse Ox 98 09/15/22 10:00 O2 Del Method Room Air 09/15/22 10:00 O2 Flow Rate 1 09/15/22 06:42 Documenting provider has reviewed patient's vital signs: yes Common normals: apparent distress Chest Common normals: inspection of chest normal Respiratory Common normals: abnormal respiratory effort and not clear to ascultation bilaterally Effort & inspection: non tachypneic and no respiratory distress Auscultation: rhonchi (Persistent but much improved) and diminished lung sounds; no wheezes Cardio Common normals: regular rate, regular rhythm and no murmurs GI Common normals: Normal to inspection, nondistended, normoactive bowel sounds present Back & Pelvis Lumbar spine/lower back: lumbar spinal tenderness Extremity Common normals: normal to inspection Results Labs Labs: Short CBC 09/14/22 09/15/22 Range/Units 10:47 04:00 WBC 8.1 5.9 (4.0-11.0) 10^3/uL Hgb 12.7 L 11.7 L (14.0-18.0) g/dL Hct 37.9 L 34.8 L (42.0-54.0) % Plt Count 195 201 (150-450) 10^3/uL BMP 09/14/22 09/15/22 10:47 04:00 Sodium 139 137 Potassium 3.5 4.2 Chloride 103 103 Carbon Dioxide 30.6 28.4 BUN 24.0 H 19.0 H Creatinine 0.77 0.76 Glucose 82 175 H Calcium 8.4 L 7.7 L Liver Function 09/14/22 Range/Units 10:47 Total Bilirubin 0.6 (0.2-1.0) mg/dL AST 29 (15-37) U/L ALT 66 H (16-63) U/L Alkaline Phosphatase 79 (46-116) U/L Albumin 3.2 L (3.4-5.0) g/dL ABG ABG results: 09/14/22 14:13 ABG pH 7.434 ABG pCO2 45.9 H ABG pO2 59.0 L ABG HCO3 30.7 H ABG O2 Saturation 91.5 ABG Base Excess 6.5 H Assessment and Plan Assessment and Plan (1) Acute exacerbation of chronic obstructive pulmonary disease: (2) Weakness: (3) Traumatic hematoma of right ankle: (4) Chronic wound: (5) Left lower lobe pneumonia: (6) Fall: (7) Dehydration: (8) Acute dyspnea: (9) Cardiomyopathy: (10) COPD (chronic obstructive pulmonary disease): Plan Sinus tachycardia, , profound weakness with acute hypoxia leading to severe sepsis (Tachycardia, resp distress, lung infection). ? this is causing acute exacerbation of his COPD.? Failed out-pt treatment. Be admitted for third time. Continue with previous treatment. Try to obtain sputum sample. 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 And patient agreeable this time.ed BNP
[2022-09-14] MEDS: PROSTAT 15 GM PROTEIN/100 CAL 30 ML LIQUID PACKET FEED TUBE (21:11)
[2022-09-14] MEDS: PREGABALIN 100 MG CAPSULE 300 MG PO (21:11)
[2022-09-14] MEDS: AMITRIPTYLINE HCL 50 MG TABLET PO (21:12)
[2022-09-14] MEDS: HYDROCODONE/ACETAMINOPHEN 5-325 MG TABLET 1 TAB PO (23:13)
[2022-09-15] VITALS (65 sets, daily range): BP systolic 110–138; BP diastolic 65–83; PULSE 79–128; RESP 0–28; TEMP 36.2–36.8; O2SAT 90–100
[2022-09-15] MEDS: METHYLPREDNISOLONE SOD SUCC PF 125 MG/2 ML VIAL 60 MG IVP ×4 (03:34→20:15)
[2022-09-15 04:56] LABS: Basophils Percent Auto 0.2 % (0.2-2.0); Hematocrit 34.8 % (42.0-54.0); Hemoglobin 11.7 g/dL (14.0-18.0); Immature Granulocytes Pct Auto 1.7 % (0.0-0.5); Lymphocytes Absolute Auto 0.2 10^3/uL (1.2-3.8); Lymphocytes Percent Auto 3.7 % (20.5-60.0); Mean Corpuscular HGB Conc 33.6 g/dL (29.9-35.2); Mean Corpuscular Hemoglobin 35.3 pg (25.9-34.0); Mean Corpuscular Volume 105.1 fL (80.0-94.0); Mean Platelet Volume 9.9 fL (9.5-13.5); Monocytes Absolute Auto 0.2 10^3/uL (0.3-0.8); Monocytes Percent Auto 3.5 % (1.7-12.0); Neutrophils Absolute Auto 5.4 10^3/uL (1.4-6.5); Neutrophils Percent Auto 90.9 % (43.0-75.0); Platelet Count 201 10^3/uL (150-450); Red Blood Count 3.31 10^6/uL (4.70-6.10); Red Cell Distribution Width 14.4 % (11.0-15.0); White Blood Count 5.9 10^3/uL (4.0-11.0)
[2022-09-15 05:06] LABS: Anion Gap 9.8; Calcium 7.7 mg/dL (8.5-10.1); Carbon Dioxide 28.4 mmol/L (21.0-32.0); Chloride 103 mmol/L (98-107); Estimated GFR (African America >60 (>=60); Estimated GFR (Non-African Ame >60 (>=60); Glucose 175 mg/dL (74-106); Potassium 4.2 mmol/L (3.5-5.1); Sodium 137 mmol/L (136-145)
[2022-09-15] MEDS: IPRATROPIUM/ALBUTEROL SULFATE 3 ML AMPUL.NEB IH ×4 (05:42→21:45)
[2022-09-15] MEDS: HYDROCODONE/ACETAMINOPHEN 5-325 MG TABLET 1 TAB PO ×4 (05:43→21:23)
[2022-09-15] MEDS: BENZONATATE 100 MG CAPSULE 200 MG PO ×3 (05:43→21:22)
[2022-09-15] MEDS: CLONIDINE HCL 0.1 MG TABLET PO ×3 (05:43→21:22)
--- NOTE | 2022-09-15 06:43 | RESP.RT ---
Titrated to Room Air
[2022-09-15] MEDS: LACTATED RINGER'S SOLUTION 1,000 ML 100 ML IV (09:16)
[2022-09-15] MEDS: PIPERACILLIN SODIUM/TAZOBACTAM 3.375 GM in 0.9 % SODIUM CHLORIDE 50 ML IV ×2 (09:17→17:26)
[2022-09-15] MEDS: PROSTAT 15 GM PROTEIN/100 CAL 30 ML LIQUID PACKET FEED TUBE ×2 (09:17→21:26)
[2022-09-15] MEDS: PREGABALIN 100 MG CAPSULE 300 MG PO ×2 (09:19→21:22)
--- NOTE | 2022-09-15 10:13 | PT.DAILY ---
Physical Therapy Daily Note PT Daily Note/Assess Start: 09/15/22 10:00 Freq: Status: Active Protocol: Document 09/15/22 10:00 JACOBO (Rec: 09/15/22 10:13 JACOBO [id number]) Physical Therapy Daily Note/Assessment Time In/Time Out Time In 09:37 Time Out 10:00 Pain In Pain N/A Pain Out Pain N/A Subjective Subjective Pt supine upon arrival. Agrees to PT. Reports low back pain currently and main complaint is just feelings weak. Therapeutic Exercise Time Therapeutic Exercise Minutes (minutes) 5 Therapeutic Exercise Units 0 Therapeutic Exercise Treatment Therapeutic Exercise Treatment Supine AP, QS and heel slides 5x ea to improve functional mobility prior to gait. Seated EOB AP and laq 10x. Therapeutic Activity Time Therapeutic Activity Minutes (minutes) 15 Therapeutic Activity Units 1 Therapeutic Activity Treatment Bed Mobility Ability Moderate Assist Therapeutic Activity Comments Supine>sit with ModA to advance L LE and upper body to sit EOB. Sits EOB 2 min. Sit >stand CGA and static standing at RW 1:30 min before needing rest break. Sits EOB another min before sit>stand again to RW to take 4 R lateral steps up side of bed to get in position to lay down. ModA to advance LE's into bed. Remains supine with call light in reach and needs met. Total Physical Therapy Time Total Therapy Minutes 20 Total Physical Therapy Units 1 Summary Daily Note Summary Improved transfer and standing ability on this date.
--- NOTE | 2022-09-15 10:21 | P.PN_ITS ---
Progress Note: Subjective Subjective Interval history: Patient more awake today. More conversational. Barely remembers me being here yesterday. Exam Constitutional Vital Signs, click to edit/add: Last Vital Signs Temp 97.7 F 09/15/22 10:00 Pulse 84 09/15/22 10:00 Resp 24 09/15/22 10:00 BP 111/65 09/15/22 10:00 Pulse Ox 98 09/15/22 10:00 O2 Del Method Room Air 09/15/22 10:00 O2 Flow Rate 1 09/15/22 06:42 Documenting provider has reviewed patient's vital signs: yes Common normals: apparent distress Chest Common normals: inspection of chest normal Respiratory Common normals: abnormal respiratory effort and not clear to ascultation bilaterally Effort & inspection: non tachypneic and no respiratory distress Auscultation: rhonchi (Persistent but much improved) and diminished lung sounds; no wheezes Cardio Common normals: regular rate, regular rhythm and no murmurs GI Common normals: Normal to inspection, nondistended, normoactive bowel sounds present Back & Pelvis Lumbar spine/lower back: lumbar spinal tenderness Extremity Common normals: normal to inspection Progress Note: Objective Labs Labs: Short CBC 09/14/22 09/15/22 Range/Units 10:47 04:00 WBC 8.1 5.9 (4.0-11.0) 10^3/uL Hgb 12.7 L 11.7 L (14.0-18.0) g/dL Hct 37.9 L 34.8 L (42.0-54.0) % Plt Count 195 201 (150-450) 10^3/uL BMP 09/14/22 09/15/22 10:47 04:00 Sodium 139 137 Potassium 3.5 4.2 Chloride 103 103 Carbon Dioxide 30.6 28.4 BUN 24.0 H 19.0 H Creatinine 0.77 0.76 Glucose 82 175 H Calcium 8.4 L 7.7 L Liver Function 09/14/22 Range/Units 10:47 Total Bilirubin 0.6 (0.2-1.0) mg/dL AST 29 (15-37) U/L ALT 66 H (16-63) U/L Alkaline Phosphatase 79 (46-116) U/L Albumin 3.2 L (3.4-5.0) g/dL Progress Note: A&P Assessment and Plan (1) Acute exacerbation of chronic obstructive pulmonary disease: (2) Weakness: (3) Traumatic hematoma of right ankle: Plan Sinus tachycardia, , profound weakness with acute hypoxia leading to severe sepsis (Tachycardia, resp distress, lung infection). ? this is causing acute exacerbation of his COPD.? Failed out-pt treatment. Re admitted for third time. Continue with previous treatment. So far stable so continue with current treatment plan. May move to [facility]. Thrombocytopenia- monitor History of cardiomyopathy-secondary to [place]- reviewed previous echocardiogram Low back pain-this is chronic for him, continue with current medication Left ankle abrasion-leg wound management monitor some swelling,-continue to monitor iron deficiency anemia- continue to monitor hypocalcemia-supplement Mild neutropenia-complicating the above-monitor daily reoccurrence of the as pneumonia with failed outpatient treatment on 2 occasions.Needs prolonged stay with at least 3 to 4 days of IV antibiotics.We will make patient inpatient.Needs placement. And patient agreeable this time.ed BNP
--- NOTE | 2022-09-15 10:27 | PC.NURSE ---
09/15/22 1027 call placed to pharmacy pt family unable to bring in entresto pt did not get last night dosing. pharmacy working on getting medication from our facility for pt. Kennedy Portillo RN
[2022-09-15] MEDS: CALCIUM CARBONATE 600 MG TABLET PO ×2 (11:13→21:22)
[2022-09-15] MEDS: DULOXETINE HCL 30 MG CAPSULE.DR PO (11:13)
[2022-09-15] MEDS: SACUBITRIL/VALSARTAN 1 EACH TABLET 4 TAB PO ×2 (11:13→21:23)
--- NOTE | 2022-09-15 12:18 | PC.NURSE ---
09/15/22 1140 pt assisted from icu to med surg into med surg bed and secured. report given to Claudine SANCHEZ med surg nurse who assumes care. belongings taken with pt. pt placed on tele and reading appropriately prior to leaving icu. Kennedy Portillo RN
[2022-09-15] MEDS: LEVOFLOXACIN IN DEXTROSE 5 % 750 MG/150 ML IV.SOLN 100 MG IV (15:39)
[2022-09-15 16:09] LABS: Procalcitonin 0.07 ng/mL (0.00-0.08)
--- NOTE | 2022-09-15 19:19 | PC.NURSE ---
Dressing to left elbow and right nevarez are clean, dry, and intact.
[2022-09-15] MEDS: AMITRIPTYLINE HCL 50 MG TABLET PO (21:23)
[2022-09-15] MEDS: CARISOPRODOL 350 MG TABLET PO (21:23)
[2022-09-15] MEDS: ALPRAZOLAM 0.5 MG TABLET PO (21:23)
[2022-09-16] VITALS (17 sets, daily range): BP systolic 136–165; BP diastolic 76–87; PULSE 84–110; RESP 16–20; TEMP 36.7–36.8; O2SAT 91–95
[2022-09-16] MEDS: PIPERACILLIN SODIUM/TAZOBACTAM 3.375 GM in 0.9 % SODIUM CHLORIDE 50 ML IV ×3 (00:06→15:53)
[2022-09-16] MEDS: LACTATED RINGER'S SOLUTION 1,000 ML 100 ML IV (02:09)
[2022-09-16] MEDS: HYDROCODONE/ACETAMINOPHEN 5-325 MG TABLET 1 TAB PO ×5 (02:09→19:30)
[2022-09-16] MEDS: METHYLPREDNISOLONE SOD SUCC PF 125 MG/2 ML VIAL 60 MG IVP ×3 (02:09→16:00)
[2022-09-16] MEDS: CLONIDINE HCL 0.1 MG TABLET PO (05:06)
[2022-09-16] MEDS: BENZONATATE 100 MG CAPSULE 200 MG PO ×3 (05:07→21:28)
[2022-09-16 05:08] LABS: Basophils Percent Auto 0.1 % (0.2-2.0); Hematocrit 34.7 % (42.0-54.0); Hemoglobin 11.7 g/dL (14.0-18.0); Immature Granulocytes Abs Auto 0.15 10^3/uL (0.00-0.03); Immature Granulocytes Pct Auto 1.4 % (0.0-0.5); Lymphocytes Absolute Auto 0.2 10^3/uL (1.2-3.8); Lymphocytes Percent Auto 2.1 % (20.5-60.0); Mean Corpuscular HGB Conc 33.7 g/dL (29.9-35.2); Mean Corpuscular Hemoglobin 35.6 pg (25.9-34.0); Mean Corpuscular Volume 105.5 fL (80.0-94.0); Mean Platelet Volume 10.5 fL (9.5-13.5); Monocytes Absolute Auto 0.3 10^3/uL (0.3-0.8); Monocytes Percent Auto 2.7 % (1.7-12.0); Neutrophils Percent Auto 93.7 % (43.0-75.0); Platelet Count 196 10^3/uL (150-450); Red Blood Count 3.29 10^6/uL (4.70-6.10); Red Cell Distribution Width 14.3 % (11.0-15.0); White Blood Count 10.7 10^3/uL (4.0-11.0)
[2022-09-16] MEDS: IPRATROPIUM/ALBUTEROL SULFATE 3 ML AMPUL.NEB IH ×4 (05:20→20:40)
[2022-09-16 05:22] LABS: BUN Creatinine Ratio 32.4; Carbon Dioxide 31.3 mmol/L (21.0-32.0); Chloride 102 mmol/L (98-107); Estimated GFR (African America >60 (>=60); Estimated GFR (Non-African Ame >60 (>=60); Glucose 155 mg/dL (74-106); Potassium 4.3 mmol/L (3.5-5.1); Sodium 137 mmol/L (136-145)
[2022-09-16] MEDS: SACUBITRIL/VALSARTAN 1 EACH TABLET 4 TAB PO ×2 (08:48→21:29)
[2022-09-16] MEDS: PROSTAT 15 GM PROTEIN/100 CAL 30 ML LIQUID PACKET FEED TUBE ×2 (08:49→21:28)
[2022-09-16] MEDS: PREGABALIN 100 MG CAPSULE 300 MG PO ×2 (08:49→21:28)
[2022-09-16] MEDS: DULOXETINE HCL 30 MG CAPSULE.DR PO (08:55)
[2022-09-16] MEDS: CLONIDINE HCL 0.1 MG TABLET 0.2 MG PO ×2 (09:09→21:28)
[2022-09-16] MEDS: CALCIUM CARBONATE 600 MG TABLET PO ×2 (09:10→21:28)
[2022-09-16] MEDS: FLUCONAZOLE 100 MG TABLET PO (09:59)
--- NOTE | 2022-09-16 11:00 | P.PN_ITS ---
Progress Note: Subjective Subjective Interval history: No new complaints this morning. Breathing feels better to him. Exam Constitutional Vital Signs, click to edit/add: Last Vital Signs Temp 98.1 F 09/16/22 05:00 Pulse 90 09/16/22 10:55 Resp 20 09/16/22 10:55 BP 165/87 H 09/16/22 05:06 Pulse Ox 94 L 09/16/22 10:55 O2 Del Method Room Air 09/16/22 10:55 O2 Flow Rate 1 09/15/22 06:42 Documenting provider has reviewed patient's vital signs: yes Common normals: apparent distress Chest Common normals: inspection of chest normal Respiratory Common normals: abnormal respiratory effort and not clear to ascultation bilaterally Effort & inspection: non tachypneic and no respiratory distress Auscultation: rhonchi (Persistent but much improved) and diminished lung sounds; no wheezes Cardio Common normals: regular rate, regular rhythm and no murmurs GI Common normals: Normal to inspection, nondistended, normoactive bowel sounds present Back & Pelvis Lumbar spine/lower back: lumbar spinal tenderness Extremity Common normals: normal to inspection Progress Note: Objective Labs Labs: Short CBC 09/16/22 Range/Units 04:26 WBC 10.7 (4.0-11.0) 10^3/uL Hgb 11.7 L (14.0-18.0) g/dL Hct 34.7 L (42.0-54.0) % Plt Count 196 (150-450) 10^3/uL BMP 09/16/22 04:26 Sodium 137 Potassium 4.3 Chloride 102 Carbon Dioxide 31.3 BUN 23.0 H Creatinine 0.71 Glucose 155 H Calcium 8.0 L Progress Note: A&P Assessment and Plan (1) Acute exacerbation of chronic obstructive pulmonary disease: (2) Weakness: (3) Traumatic hematoma of right ankle: Plan Sinus tachycardia, , profound weakness with acute hypoxia leading to severe sepsis (Tachycardia, resp distress, lung infection). ? this is causing acute exacerbation of his COPD.? Failed out-pt treatment. Re admitted for third time. Continue with previous treatment. No changes in treatment today. Continue to wean steroids though. Possible rehab tomorrow.-Sputum sample does appear to have yeast. We will add Diflucan Thrombocytopenia- monitor History of cardiomyopathy-secondary to [place]- reviewed previous echocardiogram Low back pain-this is chronic for him, continue with current medication Left ankle abrasion-leg wound management monitor some swelling,-continue to monitor iron deficiency anemia- continue to monitor hypocalcemia-supplement reoccurrence of the as pneumonia with failed outpatient treatment on 2 occasions.Needs prolonged stay with at least 3 to 4 days of IV antibiotics.We will make patient inpatient.Needs placement. And patient agreeable this time.ed BNP
[2022-09-16] MEDS: ALPRAZOLAM 0.5 MG TABLET PO ×2 (12:18→21:28)
[2022-09-16] MEDS: CARISOPRODOL 350 MG TABLET PO ×2 (12:18→21:28)
[2022-09-16] MEDS: LEVOFLOXACIN IN DEXTROSE 5 % 750 MG/150 ML IV.SOLN 100 MG IV (14:14)
[2022-09-16] MEDS: AMITRIPTYLINE HCL 50 MG TABLET PO (21:29)
[2022-09-17] MEDS: PIPERACILLIN SODIUM/TAZOBACTAM 3.375 GM in 0.9 % SODIUM CHLORIDE 50 ML IV ×2 (00:05→07:48)
[2022-09-17] MEDS: METHYLPREDNISOLONE SOD SUCC PF 125 MG/2 ML VIAL 60 MG IVP ×2 (00:06→08:02)
[2022-09-17] MEDS: HYDROCODONE/ACETAMINOPHEN 5-325 MG TABLET 1 TAB PO ×2 (04:06→13:14)
[2022-09-17 04:49] VITALS: BP 178/96; PULSE 88; RESP 18; TEMP 37.1; O2SAT 92
[2022-09-17 05:22] VITALS: BP 178/96
[2022-09-17] MEDS: HYDRALAZINE HCL 20 MG/ML VIAL 10 MG IVP (05:22)
[2022-09-17] MEDS: BENZONATATE 100 MG CAPSULE 200 MG PO (05:22)
[2022-09-17 05:28] VITALS: PULSE 87; RESP 18; O2SAT 94
[2022-09-17] MEDS: IPRATROPIUM/ALBUTEROL SULFATE 3 ML AMPUL.NEB IH ×2 (05:28→11:46)
[2022-09-17] MEDS: CARISOPRODOL 350 MG TABLET PO (05:28)
[2022-09-17] MEDS: ALPRAZOLAM 0.5 MG TABLET PO (05:28)
[2022-09-17 06:55] VITALS: BP 178/96
[2022-09-17] MEDS: CLONIDINE HCL 0.1 MG TABLET 0.2 MG PO (06:55)
[2022-09-17 07:56] VITALS: RESP 14
[2022-09-17] MEDS: CALCIUM CARBONATE 600 MG TABLET PO (08:02)
[2022-09-17] MEDS: DULOXETINE HCL 30 MG CAPSULE.DR PO (08:02)
[2022-09-17] MEDS: SACUBITRIL/VALSARTAN 1 EACH TABLET 4 TAB PO (08:02)
[2022-09-17] MEDS: NICOTINE 21 MG PATCH.TD24 TD (08:02)
[2022-09-17] MEDS: PROSTAT 15 GM PROTEIN/100 CAL 30 ML LIQUID PACKET FEED TUBE (08:03)
[2022-09-17] MEDS: PREGABALIN 100 MG CAPSULE 300 MG PO (08:08)
[2022-09-17] MEDS: METOPROLOL TARTRATE 25 MG TABLET PO (08:08)
[2022-09-17 08:38] VITALS: BMI 25.8
[2022-09-17] MEDS: FLUCONAZOLE 100 MG TABLET PO (09:01)
--- NOTE | 2022-09-17 09:21 | P.DS_ITS ---
DS: Providers Provider Date of admission: 09/14/22 12:35 Primary care physician: Napoleon Haywood MD Consults: 09/14/22 Consult to Dietitian Routine Reason For Exam: malnutrition Consult to Pharmacy Technologist Routine Reason for consult:: Home health 09/14/22 12:49 Occupational Therapy Eval and Treat Routine Physical Therapy Eval and Treat Routine 09/14/22 12:55 Consult to Dietitian Routine Reason For Exam: poor nutrition DS: Diagnosis Discharge Diagnosis (1) Acute exacerbation of chronic obstructive pulmonary disease: (2) Weakness: (3) Traumatic hematoma of right ankle: Plan Sinus tachycardia, , profound weakness with acute hypoxia? leading to severe sepsis (Tachycardia, resp distress, lung infection). ? this is causing acute exacerbation of his COPD.?? Failed out-pt treatment.? Thrombocytopenia History of cardiomyopathy-secondary to [place] Low back pain-this is chronic for him Left ankle abrasion- iron deficiency anemia hypocalcemia- DS: Summary Hospital Course Hospital Course: Patient admitted with increasing shortness of breath and profound weakness. Was found on the floor by his home health care nurse. This is his third admission for the same pneumonia. Continues to fail outpatient treatment. Initially not picking up prescriptions this last time just unable to have the strength to be at home. Came back and hypoxic. Placed on supplemental oxygen, aerosols, IV antibiotics, try to obtain sputum culture, patient did improve slowly. Working well with physical therapy. Does agree that he needs to go to rehab for short period of time. He is afraid of losing his current apartment. Currently medically stable. He will be discharged to rehab where I can follow him at rehab. Medications see list. Status at Discharge Functional status at discharge: uses cane/walker Time Spent with Patient Time attestation: Total time spent providing and/or coordinating discharge services: Exam Constitutional Vital Signs, click to edit/add: Last Vital Signs Temp 98.8 F 09/17/22 04:49 Pulse 87 09/17/22 05:28 Resp 14 09/17/22 07:56 BP 178/96 H 09/17/22 06:55 Pulse Ox 94 L 09/17/22 05:28 O2 Del Method Room Air 09/17/22 05:28 O2 Flow Rate 1 09/15/22 06:42 Documenting provider has reviewed patient's vital signs: yes Common normals: apparent distress Chest Common normals: inspection of chest normal Respiratory Common normals: abnormal respiratory effort and not clear to ascultation bilaterally Effort & inspection: non tachypneic and no respiratory distress Auscultation: rhonchi (Persistent but much improved) and diminished lung sounds; no wheezes Cardio Common normals: regular rate, regular rhythm and no murmurs GI Common normals: Normal to inspection, nondistended, normoactive bowel sounds present Back & Pelvis Lumbar spine/lower back: lumbar spinal tenderness Extremity Common normals: normal to inspection DS: Data Data Completed and Pending Labs on day of discharge: Preliminary micro results at discharge 09/14/22 11:07 Blood Culture Result 1 - Preliminary Blood - Thumb NO GROWTH AT 36-48 HOURS. FINAL TO FOLLOW. 09/14/22 11:06 Blood Culture Result 1 - Preliminary Blood - Thumb NO GROWTH AT 36-48 HOURS. FINAL TO FOLLOW. Discharge Plan Discharge Disposition: er Inpatient Rehab Fac Condition: Fair Discharge Medications: New clonidine HCl 0.1 mg Tablet 0.2 mg PO TID Qty: 90 0RF hydrocodone-acetaminophen 5-325 mg Tablet 1 tab PO Q4H PRN (Reason: pain) Qty: 180 0RF alprazolam 0.5 mg Tablet 0.5 mg PO TID PRN (Reason: anxiety) Qty: 90 0RF nicotine 21 mg/24 hr Patch 24 Hour 21 mg transdermal Q24H PRN (Reason: Nicotine Cravings) Qty: 28 0RF fluconazole 40 mg/mL Suspension For Reconstitution 100 mg PO QD Qty: 35 0RF metoprolol tartrate 25 mg Tablet 25 mg PO BID Qty: 30 0RF pregabalin 100 mg Capsule 300 mg PO BID Qty: 240 0RF levofloxacin 750 mg tablet 750 mg PO DAILY 10 Days Qty: 10 0RF Continued albuterol sulfate [Ventolin HFA] 90 mcg/actuation HFA aerosol inhaler 2 puff INHALATION Q4H PRN (Reason: shortness of breath or wheezing) carisoprodol 350 mg tablet 350 mg PO TID PRN (Reason: muscle pain) Trelegy Ellipta 100-62.5-25 mcg blister with device 1 inh INHALATION DAILY hydrocodone-acetaminophen 5-325 mg tablet 1 tab PO Q4H PRN (Reason: pain) Entresto 97-103 mg tablet 1 tab PO BID prednisone 10 mg tablet 50 mg PO DAILY Qty: 47 0RF Rx Instructions: 5/day for 3 days. 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 Forms: Portal Instructions Follow Up Appointments: Patient to follow up with [facility] per [facility] within one week. Discharge Date/Time: 09/17/22 13:21
--- NOTE | 2022-09-17 09:36 | CM.NOTE ---
Rounds made with Dr. Haywood. Plan for discharge today to [facility] in [place] if able to accept.
--- NOTE | 2022-09-17 10:44 | REH.PTDLY ---
Physical Therapy Daily Note PT Daily Note/Assess Start: 09/15/22 10:00 Freq: Status: Active Protocol: Document 09/17/22 10:36 PATRICIA (Rec: 09/17/22 10:43 PATRICIA [id number]) Physical Therapy Daily Note/Assessment Time In 09:40 Time Out 09:53 Pain Level 0 Pain Level 0 Subjective Just tired, pt just worked with OT. Fatigues easily. Therapeutic Exercise Minutes (minutes) 8 Therapeutic Exercise Units 1 Therapeutic Exercise Treatment Instructed in B LE seated exs 10x ea with demo. Pt performs exs slowly and L LE is weaker compared to R LE. Pt fatigues easily with exs, but pt does focus on breathing techniques when performing. Therapeutic Activity Minutes (minutes) 5 Therapeutic Activity Units 0 Bed Mobility Ability Minimum Assist Chair Transfer Ability Minimum Assist Therapeutic Activity Comments Pt required Min A with supine to sit transfers. Sit to stand transfers Min A with cues to push off from bed. Gait with RW from bed to chair 3 feet CGA with cues for pt to reach back upon sitting. Total Therapy Minutes 13 Total Physical Therapy Units 1 Daily Note Summary Pt fatigues easily with transfers and exs. Less assistance required today with transfers. Possible DC to SNF facility today.
--- NOTE | 2022-09-17 11:47 | SWNOTE1 ---
[facility] able [facility], SW did talk with pt about how [facility] is non-smoking facility and he will not be able to smoke while there. He did voice understanding. [facility] also wants to make sure a nicotine patch was ordered. SW to talk with nursing to see.
[2022-09-17 11:51] VITALS: O2SAT 98
--- NOTE | 2022-09-17 12:29 | SWNOTE1 ---
Pt is ready for discharge to [facility] today and they have accepted. JALEN updated packet and completed HENS. JALEN sent dc med rec to [facility]. JALEN also reminded nursing to print discharge packet as well and place in the discharge envelope sent to facility. JALEN called pt's sister and left her a message that pt will need clothes at [facility] and let her know he is going today. JALEN let patient, [facility], and nursing know of time.
== END 2022-09-17 13:21 | DRG 194 ==
LOC: ER 12:13 → ICU 12:36 → MS 09-15 11:40
PROVIDERS: Admitting Provider Family Medicine; Emergency Provider Emergency Medicine; PCP Family Medicine; Visit Provider Family Medicine
DX: J18.9 Pneumonia, unspecified organism (principal); I42.9 Cardiomyopathy, unspecified; J44.0 Chronic obstructive pulmonary disease with (acute) lower respiratory infection; J44.1 Chronic obstructive pulmonary disease with (acute) exacerbation; R53.1 Weakness; S90.01XA Contusion of right ankle, initial encounter; W19.XXXA Unspecified fall, initial encounter; Z91.81 History of falling; E86.0 Dehydration; R06.00 Dyspnea, unspecified; R09.02 Hypoxemia; D69.6 Thrombocytopenia, unspecified; I25.2 Old myocardial infarction; M54.50 Low back pain, unspecified; S90.512A Abrasion, left ankle, initial encounter; D50.9 Iron deficiency anemia, unspecified; E83.51 Hypocalcemia; D70.9 Neutropenia, unspecified; Z82.3 Family history of stroke; Z82.49 Family history of ischemic heart disease and other diseases of the circulatory system; Z82.5 Family history of asthma and other chronic lower respiratory diseases; Z80.9 Family history of malignant neoplasm, unspecified; F17.290 Nicotine dependence, other tobacco product, uncomplicated; Z79.51 Long term (current) use of inhaled steroids; Z79.899 Other long term (current) drug therapy; Z79.891 Long term (current) use of opiate analgesic
CPT/HCPCS: 36415; 36600; 51702; 70450; 71045; 76870; 80048; 80053; 81001; 82140; 82805; 83605; 83690; 83735; 84145; 84484; 85025; 85610; 86850; 86900; 86901; 87040; 87070; 87086; 87106; 93005; 93976; 94640; 94667; 94668; 94761; 96361; 96365; 96366; 96367; 96375; 96376; 97110; 97162; 97165; 97530; 97535; 99285; J2930

== ENCOUNTER 2022-12-10 10:44 | Observation (INO) | payer MEDICARE, MEDICAID, SELFPAY ==
[2022-12-10] VITALS (27 sets, daily range): BP systolic 145–212; BP diastolic 83–140; PULSE 105–133; RESP 15–28; TEMP 36.6–36.9; O2SAT 92–98; BMI 23.7
--- NOTE | 2022-12-10 10:47 | CT_ITS ---
The [address] [address] Patient Name: NITESH CALZADA MRN: [id number] date: 1955 Sex: M Assigned Patient Location: ED.MAIN Current Patient Location: Accession/Order Number: [id number] Exam Date: 12/10/2022 10:45 Report Date: 12/10/2022 11:19 At the request of: JW LYNN Procedure: CT stroke head/brain wo con CT stroke head/brain wo con, 12/10/2022 10:45 AM EDT, [place]001 INDICATION: confusion COMPARISON: Head CT from 09/06/2022. TECHNIQUE: CT images of the brain from skull base to vertex, including portions of the face and sinuses, were obtained without contrast. Supplemental 2D reformatted images were generated and reviewed as needed. Dose reduction techniques were achieved by using automated exposure control and/or adjustment of mA and/or kV according to patient size and/or use of iterative reconstruction technique. FINDINGS: The study is degraded by motion artifact. The ventricles and sulci appear unchanged. There are confluent nonspecific foci of decreased attenuation within the white matter likely representing chronic microvascular ischemic changewhich appears increased compared to the prior study. No mass effect, acute hemorrhage, midline shift, hydrocephalus or exta-axial fluid collection. The basal cisterns are patent. The calvarium appears intact. The visualized paranasal sinuses are clear. Moderate fluid is now seen in the left mastoid air cells, without evidence of confluence. CT/CT stroke head/brain wo con IMPRESSION: The study is somewhat degraded by motion artifact. No CT evidence of acute intracranial abnormality is noted. There is moderate chronic ischemic change throughout white matter which appears increased compared to the prior study. Moderate left mastoid effusion is now present. Electronically authenticated by: CHELSEY NIELSEN Date: 12/10/2022 11:19
--- NOTE | 2022-12-10 10:47 | ECG_ITS ---
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
--- NOTE | 2022-12-10 10:47 | XR_ITS ---
The [address] [address] Patient Name: NITESH CALZADA MRN: [id number] date: 1955 Sex: M Assigned Patient Location: ED.MAIN Current Patient Location: ER Accession/Order Number: [id number] Exam Date: 12/10/2022 10:45 Report Date: 12/10/2022 11:39 At the request of: JW LYNN Procedure: XR chest 1V EXAMINATION: XR chest 1V HISTORY: confusion COMPARISON: XR chest 09/14/2022 FINDINGS: LUNGS: No significant pulmonary parenchymal abnormalities. VASCULATURE: No increased pulmonary vasculature. PLEURA: No pneumothorax, effusion, or pleural thickening. CARDIAC: No cardiomegaly or cardiac silhouette abnormality. MEDIASTINUM: No visible mass or adenopathy. BONES: No fracture or visible bone lesion. OTHER: Negative. XR/XR chest 1V IMPRESSION: 1. No acute cardiopulmonary process. Electronically authenticated by: GARLAND COPELAND Date: 12/10/2022 11:39
--- NOTE | 2022-12-10 10:48 | ED_ITS ---
HPI - General Adult General Chief complaint: Altered Mental Status Stated complaint: ALTERED MENTAL STATUS Time Seen by Provider: 12/10/22 10:47 History of Present Illness HPI narrative: Patient is a 67-year-old male who is presenting by EMS with chief complaint of confusion, unwitnessed fall At home. Patient was a home with his mother. Patient was found by his neighbor sitting down, patient is confused. Patient is complaining of diffuse headache, neck pain. Patient has no chest pain or shortness of breath. Patient will answer questions, questionable expressive aphasia versus disorientation. Patient has been here for many times in the past for confusion. Patient denies any alcohol use. Patient is following commands intermittently. Patient also has blood sugar were okay for EMS prior to arrival. Stroke protocols were followed initially to error on the side of caution. Diffi cult to assess a NIH scale initially secondary to patient's cooperation. Patient blood pressure is elevated, heart rate is elevated as well. Patient blood pressure is elevated for EMS as well. Her legs elevated for EMS, blood sugar was within normal limits. When patient arrived to the Emergency Room, patient blood sugar was in the 60s. Patient has been to the Emergency Room several times in the past for similar symptoms. No abdominal pain, nausea vomiting. No obvious extremity complaints or injuries that were aware. Information is limited, patient was a home with his mother, mother is not here currently. . All systems are Difficult to assess secondary to patient's confusion, change in mental status, and no family at bedside and initial H/P Nurses note and vital signs reviewed and patient is not hypoxic. General: The patient appears Confused, slightly disoriented, questionable expressive aphasia versus metabolic encephalopathy/left-sided abnormality versus confusion . Patient is resting comfortably on cart. Patient is not toxic, lethargic, or listless. Patient denies alcohol use or alcohol history, ddespite this in chart review. Skin: Warm, dry, no pallor noted. There is no rash noted. No petechiae, purpura. Head: Normocephalic, atraumatic, Patient has no midline tenderness to palpation, patient does have paracervical mild tenderness to palpation. Patient has damari cheeks, damari nose. Eye: Normal conjunctiva, no drainage, EOMI. PERRL. Pupils are 4/2, equal, bilateral. Ears, Nose, Mouth, and Throat: oral mucosa is moist. Nares patent. Mouth without vesicles. Cardiovascular: Regular Rate and Rhythm, no murmur, gallop, rub Respiratory: Patient is in no distress, no accessory muscle use, lungs are clear to auscultation, no wheezing, rales or rhonchi Back: non-tender, no CVA tenderness bilaterally to percussion. No CT LS midline pain GI: soft, no tenderness to palpation, no masses appreciated. No rebound, guarding, or rigidity noted. No flank pain bilateral, No distention Musculoskeletal: Patient has full range of motion of all of the extremities, no motor, sensory, or focal neurological deficits Neurological: A&O x2, Slightly confused to time,, Intermittent confusion versus questionable expressive aphasia. Patient is not cooperative with exam, slightly agitated to perform thorough and a scale. Patient has his eyes open, patient is speaking. Patient is moving all extremities, no signs of paralysis. She is slightly combative nursing staff and trying to do IV and lab work. Psychiatric: unCooperative Related Data Home Medications Medication Instructions Recorded Confirmed albuterol sulfate 90 mcg/actuation 2 puff inhalation Q4H PRN 09/06/22 12/10/22 aerosol inhaler (Ventolin HFA) shortness of breath or wheezing fluticasone fur. 100 mcg-umeclid 1 inh inhalation DAILY 09/06/22 12/10/22 62.5 mcg-vilant 25 mcg inhalat.powder (Trelegy Ellipta) sacubitril 97 mg-valsartan 103 mg 1 tab PO BID 09/06/22 12/10/22 tablet (Entresto) carvedilol 6.25 mg tablet (Coreg) 6.25 mg PO BID 12/10/22 12/10/22 clonidine HCl 0.2 mg tablet 0.2 mg PO TID 12/10/22 12/10/22 hydrocodone 5 mg-acetaminophen 325 1 tab PO QID PRN pain 12/10/22 12/10/22 mg tablet prednisone 10 mg tablet 10 mg PO DAILY 12/10/22 12/10/22 pregabalin 300 mg capsule (Lyrica) 300 mg PO BID 12/10/22 12/10/22 Previous Rx's Medication Instructions Recorded amitriptyline 50 mg tablet 50 mg PO .qhs #30 tabs 09/12/22 alprazolam 0.5 mg tablet 0.5 mg PO TID PRN anxiety #90 tabs 09/17/22 metoprolol tartrate 25 mg tablet 25 mg PO BID #30 tabs 09/17/22 nicotine 21 mg/24 hr daily 21 mg transdermal Q24H PRN 09/17/22 transdermal patch Nicotine Cravings #28 ea Allergies Allergy/AdvReac Type Severity Reaction Status Date / Time No Known Drug Allergies Allergy Verified 09/06/22 16:50 PFSH PFSH Medical History (Updated 12/10/22 @ 15:54 by Faye Valero NP) Acute dyspnea ?R06.00 - Dyspnea, unspecified (ICD-10) Acute exacerbation of chronic obstructive pulmonary disease ?J44.1 - Chronic obstructive pulmonary disease with (acute) exacerbation (ICD-10) Anxiety ?F41.9 - Anxiety disorder, unspecified (ICD-10) Bruise of scrotum ?S30.22XA - Contusion of scrotum and testes, initial encounter (ICD-10) Cardiomyopathy ?I42.9 - Cardiomyopathy, unspecified (ICD-10) COPD (chronic obstructive pulmonary disease) ?J44.9 - Chronic obstructive pulmonary disease, unspecified (ICD-10) Fall ?W19.XXXA - Unspecified fall, initial encounter (ICD-10) Fracture of right hip requiring operative repair ?S72.001A - Fracture of unspecified part of neck of right femur, initial encounter for closed fracture (ICD-10) Heart attack ?I21.9 - Acute myocardial infarction, unspecified (ICD-10) Hiatal hernia with GERD ?K44.9 - Diaphragmatic hernia without obstruction or gangrene (ICD-10) ?K21.9 - Gastro-esophageal reflux disease without esophagitis (ICD-10) High blood pressure ?I10 - Essential (primary) hypertension (ICD-10) History of fractured vertebra ?Z87.81 - Personal history of (healed) traumatic fracture (ICD-10) Hypertension ?I10 - Essential (primary) hypertension (ICD-10) Left lower lobe pneumonia ?J18.9 - Pneumonia, unspecified organism (ICD-10) Pneumonia ?J18.9 - Pneumonia, unspecified organism (ICD-10) Thoracic outlet syndrome ?G54.0 - Brachial plexus disorders (ICD-10) Traumatic hematoma of right ankle ?S90.01XA - Contusion of right ankle, initial encounter (ICD-10) Weakness ?R53.1 - Weakness (ICD-10) Family History (Updated 09/06/22 @ 22:59 by Guerline Stern) Uncle Family history of CHF (congestive heart failure) Family history of COPD (chronic obstructive pulmonary disease) Family history of cancer Father Family history of cancer Other Family history of stroke Social History (Updated 09/14/22 @ 13:09 by Lynne Logan) Within the past year, how often did you have a drink containing alcohol: monthly or less Smoking status: Heavy tobacco smoker Do you use any of these nicotine containing products: e-cigarettes Non-prescribed substance use: denies use Previous occupational history: retired Highest level of school completed/degree received: high school graduate Are you now , , , , never or living with a partner: In a typical week, how many times do you talk on the telephone with family, friends, or neighbors: twice per week How often do you get together with friends or relatives: once per week How often do you attend episcopal or anglican services: never Do you belong to any clubs or organizations such as episcopal groups unions, [employer] or athletic groups, or school groups: no Total score: 1 Score interpretation: A score of less than or equal to 1 indicates the most socially isolated. Little interest or pleasure in doing things: not at all Feeling down, depressed, or hopeless: not at all Feel stressed/tense/nervous/anxious/difficulty sleeping: not at all Do you think of yourself as: straight/heterosexual Gender Identity: male Exam Constitutional Vital Signs, click to edit/add: Last Vital Signs Temp 98.4 F 12/10/22 14:40 Pulse 105 H 12/10/22 14:40 Resp 18 12/10/22 14:40 BP 148/96 H 12/10/22 14:40 Pulse Ox 98 12/10/22 14:40 O2 Del Method Room Air 12/10/22 14:40 Course Vital Signs Vital signs: Vital Signs Temperature 97.8 F 12/10/22 10:48 Pulse Rate 129 H 12/10/22 10:48 Respiratory Rate 18 12/10/22 10:48 Blood Pressure 200/120 H 12/10/22 10:48 Pulse Oximetry 94 L 12/10/22 10:48 Oxygen Delivery Method Room Air 12/10/22 10:48 Temperature 98.4 F 12/10/22 14:40 Pulse Rate 105 H 12/10/22 14:40 Respiratory Rate 18 12/10/22 14:40 Blood Pressure 148/96 H 12/10/22 14:40 Pulse Oximetry 98 12/10/22 14:40 Oxygen Delivery Method Room Air 12/10/22 14:40 Medical Decision Making MDM Narrative Medical decision making narrative: [id number] Patient has baseline of agitation for unknown reason. It is reported the patient has a history of alcohol dependence, patient refuses this. Patient has been given IV fluids, patient will be given one dose of antihypertensive medication as well. Patient is continuing to get IV maintenance fluids. Patient has been agitated, intermittently combative for unknown reason. Patient does not have any significant electrolyte abnormality which I thought he may. CT of the brain shows no acute findings. No acute reason for agitation. I did speak to Dr. Haywood, patient will be admitted for further evaluation. I have also spoken to the social insurance specialist Trina. Significant amount of time was spent at bedside redirecting this patient with myself, nursing staff, trying to get additional information on this patient. When patient initially arrived stroke protocols were in place Because he was a concern of expressive aphasia and acute stroke. However, CT of the brain shows no acute findings, questionable strokelike symptoms versus unknown reason for acute confusion. Patient be admitted by PCP, patient understands that he will to the hospital. Critical care time 32 minutes exclusive from separate billable procedures that were performed. The following was considered in the determination of critical care but not limited to the level of medical decision making, intensive cardiac and/or respiratory monitoring, frequent vital sign monitoring, evaluation of laboratory studies, evaluation of radiographic studies, oxygen monitoring, and constant monitoring and speaking to family at bedside Lab Data Lab results reviewed: Yes I reviewed the patient's lab results Labs: Lab Results 12/10/22 12/10/22 Range/Units 10:59 11:09 WBC 9.3 (4.0-11.0) 10^3/uL RBC 4.66 L (4.70-6.10) 10^6/uL Hgb 15.9 (14.0-18.0) g/dL Hct 47.8 (42.0-54.0) % MCV 102.6 H (80.0-94.0) fL MCH 34.1 H (25.9-34.0) pg MCHC 33.3 (29.9-35.2) g/dL RDW 12.7 (11.0-15.0) % Plt Count 154 (150-450) 10^3/uL MPV 9.5 (9.5-13.5) fL Neut % (Auto) 72.7 (43.0-75.0) % Lymph % (Auto) 15.9 L (20.5-60.0) % [place] % (Auto) 9.4 (1.7-12.0) % Eos % (Auto) 0.8 L (0.9-7.0) % Baso % (Auto) 0.4 (0.2-2.0) % Neut # (Auto) 6.8 H (1.4-6.5) 10^3/uL Lymph # (Auto) 1.5 (1.2-3.8) 10^3/uL [place] # (Auto) 0.9 H (0.3-0.8) 10^3/uL Eos # (Auto) 0.1 (0.0-0.7) 10^3/uL Baso # (Auto) 0.0 (0.0-0.1) 10^3/uL Abs Immat Gran (auto) 0.07 H (0.00-0.03) 10^3/uL Imm/Tot Granulo (auto) 0.8 H (0.0-0.5) % PT 10.8 (9.0-11.6) sec INR 1.02 APTT 25.9 (22.3-36.2) sec Sodium 142 (136-145) mmol/L Potassium 4.0 (3.5-5.1) mmol/L Chloride 102 (98-107) mmol/L Carbon Dioxide 24.7 (21.0-32.0) mmol/L Anion Gap 19.3 BUN 12.0 (7.0-18.0) mg/dL Creatinine 0.70 (0.70-1.30) mg/dL Est GFR ( Amer) >60 (>=60) Est GFR (Non-Af Amer) >60 (>=60) BUN/Creatinine Ratio 17.1 Glucose 58 L (74-106) mg/dL Lactate 1.7 (0.4-2.0) mmol/L Calcium 9.5 (8.5-10.1) mg/dL Magnesium 2.1 (1.8-2.4) mg/dL Total Bilirubin 0.9 (0.2-1.0) mg/dL AST 61 H (15-37) U/L ALT 85 H (16-63) U/L Alkaline Phosphatase 107 (46-116) U/L Ammonia 13 (11-32) umol/L Troponin I High Sens 7.8 (4.0-76.1) pg/mL Total Protein 7.6 (6.4-8.2) g/dL Albumin 4.0 (3.4-5.0) g/dL Globulin 3.6 g/dL Albumin/Globulin Ratio 1.1 Ethanol Quant <3 mg/dL POC Glucose 67 L (74-106) mg/dL ECG Data Attestation: I personally reviewed and interpreted this ECG as follows: (EKG interpretation. Sinus tachycardia, PVCs noted, artifact noted. QTC of 379, no acute ST elevation, no ST depression.Eunice deviation. Nonspecific ST changes) Discharge Plan Discharge Chief Complaint: Altered Mental Status Clinical Impression: Tachycardia, Altered mental status, Unwitnessed fall, Hypertension, Dehydration Patient Disposition: Admitted As Inpatient Time of Disposition Decision: 13:54 Discharge Date/Time: 12/10/22 14:48
[2022-12-10 11:11] LABS: Glucometer 67 mg/dL (74-106)
[2022-12-10] MEDS: 0.9 % SODIUM CHLORIDE 1,000 ML 1000 ML IV ×2 (11:20→12:23)
[2022-12-10 11:26] LABS: Basophils Percent Auto 0.4 % (0.2-2.0); Eosinophils Absolute Auto 0.1 10^3/uL (0.0-0.7); Eosinophils Percent Auto 0.8 % (0.9-7.0); Hematocrit 47.8 % (42.0-54.0); Hemoglobin 15.9 g/dL (14.0-18.0); Immature Granulocytes Abs Auto 0.07 10^3/uL (0.00-0.03); Immature Granulocytes Pct Auto 0.8 % (0.0-0.5); Lymphocytes Absolute Auto 1.5 10^3/uL (1.2-3.8); Lymphocytes Percent Auto 15.9 % (20.5-60.0); Mean Corpuscular HGB Conc 33.3 g/dL (29.9-35.2); Mean Corpuscular Hemoglobin 34.1 pg (25.9-34.0); Mean Corpuscular Volume 102.6 fL (80.0-94.0); Mean Platelet Volume 9.5 fL (9.5-13.5); Monocytes Absolute Auto 0.9 10^3/uL (0.3-0.8); Monocytes Percent Auto 9.4 % (1.7-12.0); Neutrophils Absolute Auto 6.8 10^3/uL (1.4-6.5); Neutrophils Percent Auto 72.7 % (43.0-75.0); Platelet Count 154 10^3/uL (150-450); Red Blood Count 4.66 10^6/uL (4.70-6.10); Red Cell Distribution Width 12.7 % (11.0-15.0); White Blood Count 9.3 10^3/uL (4.0-11.0)
--- NOTE | 2022-12-10 11:26 | CT_ITS ---
The [address] [address] Patient Name: NITESH CALZADA MRN: [id number] date: 1955 Sex: M Assigned Patient Location: ER Current Patient Location: ER Accession/Order Number: [id number] Exam Date: 12/10/2022 13:05 Report Date: 12/10/2022 13:47 At the request of: JW LYNN Procedure: CT cervical spine wo con EXAM: CT cervical spine wo con HISTORY: Fall. COMPARISON: None. TECHNIQUE: Contiguous transaxial images obtained from skullbase through cervical spine without administration of intravenous contrast. Coronal and sagittal reformations were obtained. Dose reduction: mA and/or kV are were adjusted by automated exposure control software based upon patients height and weight. FINDINGS: There is osteopenia of the cervical spine. There is no prevertebral soft tissue swelling or acute cervical spine fracture. There is degenerative disc disease of the cervical spine with vacuum disc at C5-6. There is minimal retrolisthesis of C3 on C4, C4 on C5, and C5 on C6. There is uncovertebral joint osteoarthritis from C3-4 through C6-7. There is right C5-6 neural foraminal narrowing. There is atlantodental articulation osteoarthritis. There is partial opacification of bilateral, left greater right, mastoid air cells. There are surgical clips at the left apex. There is bilateral carotid artery atherosclerosis. CT/CT cervical spine wo con IMPRESSION: 1. No acute cervical spine fracture. 2. Degenerative disc disease of the cervical spine with minimal retrolisthesis of C3 on C4, C4 on C5, and C5 on C6. 3. Right C5-6 neural foraminal narrowing. 4. Bilateral carotid artery atherosclerosis. Electronically authenticated by: EVELIO MOJICA Date: 12/10/2022 13:47
[2022-12-10] MEDS: THIAMINE MONONITRATE (VIT B1) 100 MG TABLET PO (11:33)
[2022-12-10] MEDS: MULTIVITAMIN TABLET 1 TAB PO (11:33)
[2022-12-10 11:41] LABS: Magnesium 2.1 mg/dL (1.8-2.4)
[2022-12-10 11:47] LABS: Ammonia 13 umol/L (11-32)
[2022-12-10 11:49] LABS: Lactate/Lactic Acid 1.7 mmol/L (0.4-2.0)
[2022-12-10 11:55] LABS: Alanine Aminotransferase 85 U/L (16-63); Albumin Globulin Ratio 1.1; Alkaline Phosphatase 107 U/L (46-116); Anion Gap 19.3; Aspartate Amino Transferase 61 U/L (15-37); BUN Creatinine Ratio 17.1; Bilirubin Total 0.9 mg/dL (0.2-1.0); Calcium 9.5 mg/dL (8.5-10.1); Carbon Dioxide 24.7 mmol/L (21.0-32.0); Chloride 102 mmol/L (98-107); Estimated GFR (African America >60 (>=60); Estimated GFR (Non-African Ame >60 (>=60); Globulin 3.6 g/dL; Glucose 58 mg/dL (74-106); Sodium 142 mmol/L (136-145); Total Protein 7.6 g/dL (6.4-8.2); Troponin I High Sensitivity 7.8 pg/mL (4.0-76.1)
[2022-12-10 12:10] LABS: Ethanol <3 mg/dL
[2022-12-10 12:39] LABS: INR 1.02; Partial Thromboplastin Time 25.9 sec (22.3-36.2); Prothrombin Time 10.8 sec (9.0-11.6)
--- NOTE | 2022-12-10 13:39 | PC.NURSE ---
PT MISSED URINAL AND BED IS COVERED IN URINE. THIS RN AND ANOTHER TRYING TO CHANGE BEDDING AND CLEAN PT UP -- PT TELLS STAFF F OFF! PT VERY AGGRESSIVE AND ANGRY. PT ALSO TAKING OFF VITALS THINGS AND EKG PATCHES. INFORMED DR LYNN. PT GIVEN WARM BLANKETS.
[2022-12-10] MEDS: LABETALOL HCL 20 MG/4 ML SYRINGE IV (14:13)
--- NOTE | 2022-12-10 15:26 | PC.NURSE ---
patient states he is afraid of losing his housing and says he can't get to his appts. However, he is currently confused so unsure if this is still accurate. 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
[2022-12-10] MEDS: NICOTINE 21 MG PATCH TD (15:37)
[2022-12-10] MEDS: DIAZEPAM 5 MG/ML - 2 ML INJ SYRINGE IV ×2 (15:37→19:19)
--- NOTE | 2022-12-10 15:37 | P.HP_ITS ---
Pt seen and examined at 1910 Agree with info provided by RETAIL AIDE He did allow me a PE after sedated PE MM dry Lungs distant - clear Heart - sl tachy Abd - upper abd tendeness is mild Ext - no edema Cont to pt in obs - re-=\eval in am - possible d/c if improved with IV fluids, improvement in glucose iwth D5 - although denies etoh abuse - with hx - need to be concerned with withdrawal - added librium H&P: HPI History of Present Illness Chief complaint: ALTERED MENTAL STATUS Narrative: Date/Time of exam: 12/10/22 4176 This is a 67-year-old male patient with a past medical history as outlined below including COPD, chronic tobacco dependence, CAD, anxiety; who presented to the ED via EMS after his neighbor found him sitting outside confused. The patient reportedly has a remote history of EtOH abuse but is not known to abuse alcohol in recent years. The patient was apparently complaining of diffuse headache and neck pain in the ED but otherwise there was no apparent explanation for his acute agitation and disorientation. Work-up in the ED included a thorough CVA work-up which did not reveal any acute abnormalities. The patient had mildly low blood sugar on arrival to the ED but was otherwise unremarkable all labs. He has chronically elevated mildly elevated liver enzymes which remain elevated on ED labs, but not concerningly high. Electrolytes were all within normal limits. EtOH and ammonia levels were unremarkable. The patient is being admitted to observation by Dr. Hayowod for acute metabolic encephalopathy of unclear etiology. At the time of my exam the patient is lying in bed in the medical surge floor. The patient answers questions but not always appropriately. He is confused and agitated and at times combative. He refuses to allow physical examination by this provider, attempting to strike me my stethoscope and would not allow to touch him. The patient is unable to describe his recent symptoms. He denies any acute complaints other than feeling like shit . He is disoriented except to self. Review of Systems ROS Status of ROS unobtainable due to mental status [facility] Medical History (Updated 12/10/22 @ 15:54 by Faye Valero NP) Acute dyspnea ?R06.00 - Dyspnea, unspecified (ICD-10) Acute exacerbation of chronic obstructive pulmonary disease ?J44.1 - Chronic obstructive pulmonary disease with (acute) exacerbation (ICD-10) Anxiety ?F41.9 - Anxiety disorder, unspecified (ICD-10) Bruise of scrotum ?S30.22XA - Contusion of scrotum and testes, initial encounter (ICD-10) Cardiomyopathy ?I42.9 - Cardiomyopathy, unspecified (ICD-10) COPD (chronic obstructive pulmonary disease) ?J44.9 - Chronic obstructive pulmonary disease, unspecified (ICD-10) Fall ?W19.XXXA - Unspecified fall, initial encounter (ICD-10) Fracture of right hip requiring operative repair ?S72.001A - Fracture of unspecified part of neck of right femur, initial en counter for closed fracture (ICD-10) Heart attack ?I21.9 - Acute myocardial infarction, unspecified (ICD-10) Hiatal hernia with GERD ?K44.9 - Diaphragmatic hernia without obstruction or gangrene (ICD-10) ?K21.9 - Gastro-esophageal reflux disease without esophagitis (ICD-10) High blood pressure ?I10 - Essential (primary) hypertension (ICD-10) History of fractured vertebra ?Z87.81 - Personal history of (healed) traumatic fracture (ICD-10) Hypertension ?I10 - Essential (primary) hypertension (ICD-10) Left lower lobe pneumonia ?J18.9 - Pneumonia, unspecified organism (ICD-10) Pneumonia ?J18.9 - Pneumonia, unspecified organism (ICD-10) Thoracic outlet syndrome ?G54.0 - Brachial plexus disorders (ICD-10) Traumatic hematoma of right ankle ?S90.01XA - Contusion of right ankle, initial encounter (ICD-10) Weakness ?R53.1 - Weakness (ICD-10) Family History (Updated 09/06/22 @ 22:59 by Guerline Stern) Uncle Family history of CHF (congestive heart failure) Family history of COPD (chronic obstructive pulmonary disease) Family history of cancer Father Family history of cancer Other Family history of stroke Social History (Updated 09/14/22 @ 13:09 by Lynne Logan) Within the past year, how often did you have a drink containing alcohol: monthly or less Smoking status: Heavy tobacco smoker Do you use any of these nicotine containing products: e-cigarettes Non-prescribed substance use: denies use Previous occupational history: retired Highest level of school completed/degree received: high school graduate Are you now , , , , never or living with a partner: In a typical week, how many times do you talk on the telephone with family, friends, or neighbors: twice per week How often do you get together with friends or relatives: once per week How often do you attend congregational or adventist services: never Do you belong to any clubs or organizations such as congregational groups unions, [employer] or athletic groups, or school groups: no Total score: 1 Score interpretation: A score of less than or equal to 1 indicates the most socially isolated. Little interest or pleasure in doing things: not at all Feeling down, depressed, or hopeless: not at all Feel stressed/tense/nervous/anxious/difficulty sleeping: not at all Do you think of yourself as: straight/heterosexual Gender Identity: male Meds Home Medications and Allergies Home Medications Medication Instructions Recorded Confirmed Type albuterol sulfate 90 mcg/actuation 2 puff inhalation Q4H PRN 09/06/22 12/10/22 History aerosol inhaler (Ventolin HFA) shortness of breath or wheezing fluticasone fur. 100 mcg-umeclid 1 inh inhalation DAILY 09/06/22 12/10/22 History 62.5 mcg-vilant 25 mcg inhalat.powder (Trelegy Ellipta) sacubitril 97 mg-valsartan 103 mg 1 tab PO BID 09/06/22 12/10/22 History tablet (Entresto) amitriptyline 50 mg tablet 50 mg PO .qhs #30 tabs 09/12/22 12/10/22 Rx alprazolam 0.5 mg tablet 0.5 mg PO TID PRN anxiety #90 tabs 09/17/22 12/10/22 Rx nicotine 21 mg/24 hr daily 21 mg transdermal Q24H PRN 09/17/22 12/10/22 Rx transdermal patch Nicotine Cravings #28 ea carvedilol 6.25 mg tablet (Coreg) 6.25 mg PO BID 12/10/22 12/10/22 History clonidine HCl 0.2 mg tablet 0.2 mg PO TID 12/10/22 12/10/22 History hydrocodone 5 mg-acetaminophen 325 1 tab PO QID PRN pain 12/10/22 12/10/22 History mg tablet prednisone 10 mg tablet 10 mg PO DAILY 12/10/22 12/10/22 History pregabalin 300 mg capsule (Lyrica) 300 mg PO BID 12/10/22 12/10/22 History Allergies Allergy/AdvReac Type Severity Reaction Status Date / Time No Known Drug Allergies Allergy Verified 09/06/22 16:50 Exam Narrative Exam Narrative: Pt refuses to allow a physical exam by this provider despite multiple attempts to reorient him and redirect his anger and agitation. He swatted away my stethoscope and acted as if he might strike me if I attempted to touch him. He does not appear to be in acute physical distress. Mild accessory muscle use noted w/ expiration but is not clinically in respiratory distress. He is awake and alert but very disoriented and agitated. Constitutional Vital Signs, click to edit/add: Last Vital Signs Temp 98.4 F 12/10/22 14:40 Pulse 105 H 12/10/22 14:40 Resp 18 12/10/22 14:40 BP 148/96 H 12/10/22 14:40 Pulse Ox 98 12/10/22 14:40 O2 Del Method Room Air 12/10/22 14:40 Results Labs Labs: Short CBC 12/10/22 Range/Units 11:09 WBC 9.3 (4.0-11.0) 10^3/uL Hgb 15.9 (14.0-18.0) g/dL Hct 47.8 (42.0-54.0) % Plt Count 154 (150-450) 10^3/uL BMP 12/10/22 11:09 Sodium 142 Potassium 4.0 Chloride 102 Carbon Dioxide 24.7 BUN 12.0 Creatinine 0.70 Glucose 58 L Calcium 9.5 Liver Function 12/10/22 Range/Units 11:09 Total Bilirubin 0.9 (0.2-1.0) mg/dL AST 61 H (15-37) U/L ALT 85 H (16-63) U/L Alkaline Phosphatase 107 (46-116) U/L Albumin 4.0 (3.4-5.0) g/dL Pulse Oximetry Attestation: I have reviewed the pertinent pulse oximetry results. ECG Attestation: ?I have reviewed the pertinent ECG results. Interpretation: Impression: Sinus tachycardia w/ frequent ventricular premature complexes Minimal ST depression Twave abnormality, possible lateral ischemia compared to ECG 09/14/22 10:20:05 Ventricular premature complexes now present ST (T wave) deviation now present Possible ischemia now present Imaging CT scan - head: Attestation: I have reviewed the pertinent imaging results. Radiologist's impression: IMPRESSION: The study is somewhat degraded by motion artifact. No CT evidence of acute intracranial abnormality is noted. There is moderate chronic ischemic change throughout white matter which appears increased compared to the prior study. Moderate left mastoid effusion is now present. Chest x-ray: Attestation: I have reviewed the pertinent imaging results. Radiologist's impression: IMPRESSION: 1. No acute cardiopulmonary process. CT Cervical Spine: Attestation: I have reviewed the pertinent imaging results. Radiologist's impression: IMPRESSION: 1. No acute cervical spine fracture. 2. Degenerative disc disease of the cervical spine with minimal retrolisthesis of C3 on C4, C4 on C5, and C5 on C6. 3. Right C5-6 neural foraminal narrowing. 4. Bilateral carotid artery atherosclerosis. Assessment and Plan Assessment and Plan (1) Acute metabolic encephalopathy: Assessment and Plan: ACUTE * Adm in observation * Unclear etiology. Differential includes * CVA unlikely w/ neg CT brain and lack of focal deficits. Consider MRI brain pending clinical course * Dehydration. 2L NS boluses given in ED. Continue IVF w/ LR at 100/hr. CMP in AM * Hyperammonemia - r/o w/ ammonia of 13 * Acute intoxication - EtOH WNL in ED. Check UDS if able to obtain a urine sample. Acute withdrawal is possible etiology, but no known evidence of recent EtOH abuse. Consider CIWA protocol * Acute infection - No evidence of infection on general survey of skin, CXR, or labs. Obtain UA if possible to assess for UTI * CO2 narcosis - Confusion in absence of sedation, and with normal venous CO2, makes CO2 narcosis less likely. Consider ABG pending clinical course. Staff unlikely able to obtain ABG at this time d/t combativeness * Electrolyte disturbances - r/o in ED. Add phosphorous to labs to fully assess electrolytes * Benzodiazepine w/d - Home med list includes alprazolam. If pt is out of the medication or has been using it too frequently, acute w/d could explain many of his symptoms * Nicoderm patch for tobacco cravings in tobacco dependent pt * Valium 5 mg IVP q6h PRN * CBC, CMP daily (2) Tachycardia: Assessment and Plan: ACUTE * Unclear etiology - agitation vs EtOH w/d vs drug SE vs other * Sinus tach w/ unremarkable EKG (non-specific ST changes in lateral leads) * Valium for agitation * Metoprolol 5 mg IVP x 1, resume home clonidine & coreg * tele monitoring (3) Dehydration: Assessment and Plan: ACUTE * 2L NS boluses given in ED. Continue IVF w/ LR at 100/hr. * CMP in AM (4) Unwitnessed fall: Assessment and Plan: ACUTE * Fall reported in ED but unable to confirm w/ pt * Head and neck pain reported * CT head and neck neg for acute abn or trauma * Staff to ambulate with pt at all times - bed and chair alarms on (5) COPD (chronic obstructive pulmonary disease): Assessment and Plan: CHRONIC * Continue home ventolin HFA, Trelegy Ellipta, and daily prednisone * No significant clinical concern for acute exacerbation, but possible (6) High blood pressure: Assessment and Plan: CHRONIC * Continue home Entresto, Coreg, clonidine, metoprolol tartrate * VS q4h
--- NOTE | 2022-12-10 15:49 | PC.NURSE ---
Patient has new skin tear to left forearm. Unsure of how it happened. Patient is combative and confused and would not let commercial underwriter measure. He has already attempted to remove allevyn that was placed.
[2022-12-10] MEDS: LACTATED RINGER'S SOLUTION 1,000 ML 100 ML IV (15:51)
[2022-12-10] MEDS: METOPROLOL TARTRATE 5 MG/5 ML VIAL IVP (16:04)
[2022-12-10] MEDS: ONDANSETRON PF 4 MG/2 ML VIAL IV (16:04)
[2022-12-10] MEDS: HALOPERIDOL LACTATE 5 MG/ML VIAL 2 MG IV (17:10)
[2022-12-10 17:37] LABS: Phosphorus 3.5 mg/dL (2.6-4.7)
[2022-12-10] MEDS: HYDROCODONE/ACET 5-325 MG TABLET 1 TAB PO ×2 (17:56→23:54)
[2022-12-10] MEDS: HALOPERIDOL LACTATE 5 MG/ML VIAL IV ×2 (18:22→19:19)
[2022-12-10 19:29] LABS: PCO2 VBG 35.8 mmHg (40.0-52.0); pH VBG 7.485 (7.330-7.430)
[2022-12-10 19:38] LABS: Ammonia 21 umol/L (11-32)
[2022-12-10] MEDS: CLORDIAZEPOXIDE HCl 25 MG CAPSULE PO (19:41)
[2022-12-10] MEDS: DEXTROSE 5%-0.9% NACL 1,000 ML 1,000 ML 100 ML IV (19:41)
[2022-12-10] MEDS: IPRATROPIUM/ALBUTEROL SULFATE 3 ML AMPUL.NEB IH (20:12)
[2022-12-10] MEDS: BUDESONIDE 0.5 MG/2 ML AMPULE NEB IH (20:12)
[2022-12-10 20:20] LABS: Glucometer 141 mg/dL (74-106)
[2022-12-10] MEDS: PREGABALIN 100 MG CAPSULE 300 MG PO (22:16)
[2022-12-10] MEDS: CLONIDINE HCL 0.2 MG TABLET PO (22:16)
[2022-12-10] MEDS: CARVEDILOL 6.25 MG TABLET PO (22:16)
[2022-12-10] MEDS: ALPRAZOLAM 0.5 MG TABLET PO (22:16)
[2022-12-10] MEDS: AMITRIPTYLINE HCL 50 MG TABLET PO (22:16)
[2022-12-10] MEDS: Sacubitril-Valsartan [Entresto] 97-103 mg tablet 1 EACH PO (22:17)
[2022-12-11] VITALS (9 sets, daily range): BP systolic 105–120; BP diastolic 65–76; PULSE 70–85; RESP 16–18; TEMP 36.4; O2SAT 91–94
--- NOTE | 2022-12-11 05:00 | ECG_ITS ---
[facility] Test Date: 2022-12-11 Pat Name: NITESH CALZADA Department: Room: 2161 Gender: Male Complaint Investigator: : [id number] Requested By: 2022 Order Number: [id number] Reading MD: ROME VERDUZCO Measurements Intervals [place] Rate: 79 P: 45 IN: 161 QRS: -4 QRSD: 105 T: 71 QT: 420 QTc: 483 Interpretive Statements SINUS RHYTHM Non-Specific T wave inversion in aVL Compared to ECG 12/10/2022 11:05:17 Electronically Signed On 12-13-2022 5:28:05 EDT by ROME VERDUZCO
[2022-12-11] MEDS: IPRATROPIUM/ALBUTEROL SULFATE 3 ML AMPUL.NEB IH (05:23)
[2022-12-11 05:49] LABS: Basophils Percent Auto 0.8 % (0.2-2.0); Eosinophils Absolute Auto 0.2 10^3/uL (0.0-0.7); Eosinophils Percent Auto 3.3 % (0.9-7.0); Hematocrit 37.5 % (42.0-54.0); Hemoglobin 12.4 g/dL (14.0-18.0); Immature Granulocytes Abs Auto 0.03 10^3/uL (0.00-0.03); Immature Granulocytes Pct Auto 0.6 % (0.0-0.5); Lymphocytes Absolute Auto 1.6 10^3/uL (1.2-3.8); Mean Corpuscular HGB Conc 33.1 g/dL (29.9-35.2); Mean Corpuscular Volume 102.7 fL (80.0-94.0); Mean Platelet Volume 9.6 fL (9.5-13.5); Monocytes Absolute Auto 0.6 10^3/uL (0.3-0.8); Monocytes Percent Auto 12.3 % (1.7-12.0); Neutrophils Absolute Auto 2.3 10^3/uL (1.4-6.5); Platelet Count 124 10^3/uL (150-450); Red Blood Count 3.65 10^6/uL (4.70-6.10); Red Cell Distribution Width 12.8 % (11.0-15.0); White Blood Count 4.8 10^3/uL (4.0-11.0)
[2022-12-11] MEDS: DEXTROSE 5%-0.9% NACL 1,000 ML 1,000 ML 100 ML IV (05:54)
[2022-12-11 06:12] LABS: Alanine Aminotransferase 56 U/L (16-63); Albumin Level 2.7 g/dL (3.4-5.0); Alkaline Phosphatase 72 U/L (46-116); Anion Gap 8.8; Aspartate Amino Transferase 34 U/L (15-37); BUN Creatinine Ratio 10.6; Bilirubin Total 0.5 mg/dL (0.2-1.0); Calcium 8.1 mg/dL (8.5-10.1); Carbon Dioxide 29.3 mmol/L (21.0-32.0); Chloride 106 mmol/L (98-107); Estimated GFR (African America >60 (>=60); Estimated GFR (Non-African Ame >60 (>=60); Globulin 2.8 g/dL; Glucose 147 mg/dL (74-106); Potassium 3.1 mmol/L (3.5-5.1); Sodium 141 mmol/L (136-145); Total Protein 5.5 g/dL (6.4-8.2)
[2022-12-11 07:13] LABS: Bilirubin Urine NEGATIVE (NEGATIVE); Blood Urine NEGATIVE (NEGATIVE); Clarity Urine CLEAR (CLEAR); Color Urine YELLOW (YELLOW); Glucose Urine UA NEGATIVE (NEGATIVE); Ketones Urine 40 mg/dL (NEGATIVE); Leukocyte Esterase Urine NEGATIVE (NEGATIVE); Nitrite Urine NEGATIVE (NEGATIVE); Protein Urine NEGATIVE (NEG/TRACE); Urobilinogen Urine 0.2 EU/dL (0.2-1.0); pH Urine 6.5 (5.0-9.0)
[2022-12-11 07:24] LABS: Amphetamine Screen Urine NEGATIVE (NEGATIVE); Barbiturates Screen Urine NEGATIVE (NEGATIVE); Benzodiazepines Screen Urine POSITIVE (NEGATIVE); Buprenorphine Screen Urine NEGATIVE (NEGATIVE); Cannabinoid Screen Urine NEGATIVE (NEGATIVE); Cocaine Screen Urine NEGATIVE (NEGATIVE); Methadone Screen Urine NEGATIVE (NEGATIVE); Methamphetamines Screen Urine NEGATIVE (NEGATIVE); Opiate Screen Urine POSITIVE (NEGATIVE); Oxycodone Screen Urine NEGATIVE (NEGATIVE); Phencyclidine Screen Urine NEGATIVE (NEGATIVE); Tricyclic Antidepressant Urine POSITIVE (NEGATIVE)
--- NOTE | 2022-12-11 07:30 | P.PN_ITS ---
Progress Note: Subjective Subjective Interval history: Somnolent this morning, had multiple medications overnight due to severe anxiety and combativeness. Exam Constitutional Vital Signs, click to edit/add: Last Vital Signs Temp 97.6 F 12/11/22 05:00 Pulse 83 12/11/22 06:05 Resp 16 12/11/22 05:23 BP 120/68 12/11/22 05:00 Pulse Ox 91 L 12/11/22 05:23 O2 Del Method Room Air 12/11/22 05:23 Documenting provider has reviewed patient's vital signs: yes Common normals: no apparent distress Chest Common normals: inspection of chest normal Respiratory Common normals: normal respiratory effort and clear to auscultation bilaterally Effort & inspection: tachypneic and respiratory distress Auscultation: diminished lung sounds; no rhonchi and no wheezes Cardio Common normals: regular rate, regular rhythm and no murmurs GI Common normals: Normal to inspection, nondistended, normoactive bowel sounds present Back & Pelvis Lumbar spine/lower back: lumbar spinal tenderness Extremity Common normals: normal to inspection Neuro Other: Sedated Progress Note: Objective Labs Labs: Short CBC 12/10/22 12/11/22 Range/Units 11:09 05:00 WBC 9.3 4.8 (4.0-11.0) 10^3/uL Hgb 15.9 12.4 L (14.0-18.0) g/dL Hct 47.8 37.5 L (42.0-54.0) % Plt Count 154 124 L (150-450) 10^3/uL BMP 12/10/22 12/11/22 11:09 05:00 Sodium 142 141 Potassium 4.0 3.1 L Chloride 102 106 Carbon Dioxide 24.7 29.3 BUN 12.0 7.0 Creatinine 0.70 0.66 L Glucose 58 L 147 H Calcium 9.5 8.1 L Liver Function 12/10/22 12/11/22 Range/Units 11:09 05:00 Total Bilirubin 0.9 0.5 (0.2-1.0) mg/dL AST 61 H 34 (15-37) U/L ALT 85 H 56 (16-63) U/L Alkaline Phosphatase 107 72 (46-116) U/L Albumin 4.0 2.7 L (3.4-5.0) g/dL Urine 12/10/22 Range/Units 06:42 Urine Color Yellow (YELLOW) Urine Clarity Clear (CLEAR) Urine pH 6.5 (5.0-9.0) Ur Specific [place] 1.020 (1.005-1.025) Urine Protein Negative (NEG/TRACE) mg/dL Urine Glucose (UA) Negative (NEGATIVE) mg/dL Progress Note: A&P Assessment and Plan (1) Acute metabolic encephalopathy: (2) Tachycardia: (3) Dehydration: (4) Unwitnessed fall: (5) COPD (chronic obstructive pulmonary disease): (6) High blood pressure: Plan Patient found confused at home. Presented to the emergency room with altered mental status. He does have a history of drug and alcohol use. Denies recent alcohol use. At the time of my exam yesterday he was somewhat more calm but still had issues overnight and prior to my visit with throwing things and screaming at staff and not allowing them to perform the overall functions. This morning he is sedated. Likely secondary to medications overnight. Patient was placed on [id number] Librium but will change it to as needed this morning. Does move extremities and no focal weaknesses are noted. We will see how the rest the morning progresses for him work-up so far was negative does have a mild close metabolic alkalosis. Sugar was low on admission placed on D5 overnight and that is improved this morning. If much improved later on today possible discharge to home. If not we will likely do telemetry neuro visit. If he is discharged home see medication list and follow-up with me in the office within the next week. Thrombocytopenia-likely secondary to history of alcohol abuse-continue to monitor Iron deficiency anemia-consider colonoscopy as an outpatient for work-up but likely secondary to poor dietary intake COPD-use home medications Hypertension-continue with home medications Chronic pain syndrome on Lyrica-continue with current medications Maintain the patient as observation status. If symptoms not improving later today will require inpatient treatment
[2022-12-11 07:37] LABS: Glucometer 139 mg/dL (74-106)
--- NOTE | 2022-12-11 07:57 | CM.NOTE ---
Rounds made with Dr. Haywood. Stan Macks sleeping and does not awaken during assessment.
--- NOTE | 2022-12-11 10:33 | PC.NURSE ---
patient refusing morning medications. patient states he wants to go home. notified phyisician patient is awake.
--- NOTE | 2022-12-11 10:57 | PC.NURSE ---
patient walked 50 foot with walker with minimal assistance in the feliz. patient now eating breakfast in the chair. denies need for assistance.
[2022-12-11] MEDS: POTASSIUM CHLORIDE 10 MEQ ER TABLET 40 MEQ PO (11:57)
[2022-12-11] MEDS: HYDROCODONE/ACET 5-325 MG TABLET 1 TAB PO (12:13)
--- NOTE | 2022-12-11 13:16 | P.DS_ITS ---
Agree with input - see my d/c summary DS: Providers Provider Date of admission: 12/10/22 14:19 Primary care physician: Napoleon Haywood MD Admitting clinician: Faye Valero Attending physician on admission: Napoleon Haywood Consults: 12/10/22 Consult to Cattery Operator Routine Reason for consult:: Financial Concerns Discharging clinician: Faye Valero DS: Diagnosis Discharge Diagnosis (1) Acute metabolic encephalopathy: (2) Tachycardia: (3) Dehydration: (4) Unwitnessed fall: (5) COPD (chronic obstructive pulmonary disease): (6) High blood pressure: DS: Summary Hospital Course Hospital Course: The patient was admitted with acute metabolic encephalopathy of unclear etiology, but acute alcohol withdrawal may be the source. Patient denies significant EtOH intake recently but has a past history of heavy alcohol abuse. At the time of admission the patient was disoriented and severely agitated and combative. CT imaging of the head was unremarkable we do not clinically suspect acute CVA at this time. The patient was given antipsychotics overnight along with benzodiazepines and his physical aggressiveness and combativeness eventually resolved and he was able to sleep. On the day of discharge the patient was slow to awake but once he was awake he was oriented but remained angry and somewhat noncooperative with staff. He was no longer physically aggressive or combative. He did allow medications to be given and a physical exam by the provider at the time of discharge. No acute abnormalities were noted on exam. He was mildly hypokalemic on the day of discharge and this was repleted with p.o. potassium. He is being discharged home in stable condition. He should follow-up with his PCP within 5 to 7 days. Time Spent with Patient Time attestation: Total time spent providing and/or coordinating discharge services: Time spent: greater than 30 minutes Specific discharge activities: Physical exam, discussion of discharge plan, questions answered. Exam Constitutional Vital Signs, click to edit/add: Last Vital Signs Temp 97.6 F 12/11/22 05:00 Pulse 70 12/11/22 10:06 Resp 16 12/11/22 10:06 BP 117/76 12/11/22 10:06 Pulse Ox 93 L 12/11/22 10:48 O2 Del Method Room Air 12/11/22 10:48 Common normals: no apparent distress, oriented x3 and alert General appearance: cooperative Orientation/consciousness: Yes awake HENMT Common normals: normocephalic and head/scalp atraumatic Head and scalp: normocephalic and atraumatic Eye Common normals: PERRL, EOMs intact bilaterally, conjunctivae normal and no scleral icterus Conjunctiva: conjunctiva(e) normal Pupil: PERRL Neck & C-Spine Common normals: no JVD Respiratory Common normals: normal respiratory effort, no use of accessory muscles and clear to auscultation bilaterally Effort & inspection: able to speak in complete sentences and symmetric chest movement Auscultation: clear to auscultation bilaterally Cardio Common normals: no JVD, regular rate, regular rhythm, S1 normal heart sound, S2 normal heart sound, no gallops, no clicks, no murmurs, no rub and peripheral pulses 2+ throughout Rate: regular rate Rhythm: regular rhythm Heart sounds: S1 normal and S2 normal Peripheral pulses: pulses 2+ throughout GI Common normals: Normal to inspection, nondistended, normoactive bowel sounds present, soft to palpation and non-tender Palpation: soft Bladder/kidney exam: bladder normal to palpation Extremity Common normals: normal to inspection, full ROM and normal capillary refill General: edema (trace bilat insteps); no clubbing and no cyanosis Neuro Common normals: oriented x3, CN's II-XII intact bilaterally, moves all extremities, no focal motor deficits and no sensory deficits noted Sensorium/orientation: awake and alert Speech: speech normal Psych Common normals: mental status grossly normal and activity/motor behavior normal Appearance: grossly normal Attitude: uncooperative and belligerent DS: Data Data Completed and Pending Labs on day of discharge: Labs from last 24 hours 12/11/22 12/11/22 12/10/22 07:35 05:00 20:18 WBC 4.8 RBC 3.65 L Hgb 12.4 L Hct 37.5 L MCV 102.7 H MCH 34.0 MCHC 33.1 RDW 12.8 Plt Count 124 L MPV 9.6 Neut % (Auto) 49.0 Lymph % (Auto) 34.0 [place] % (Auto) 12.3 H Eos % (Auto) 3.3 Baso % (Auto) 0.8 Neut # (Auto) 2.3 Lymph # (Auto) 1.6 [place] # (Auto) 0.6 Eos # (Auto) 0.2 Baso # (Auto) 0.0 Abs Immat Gran (auto) 0.03 Imm/Tot Granulo (auto) 0.6 H VBG pH VBG pCO2 Sodium 141 Potassium 3.1 L Chloride 106 Carbon Dioxide 29.3 Anion Gap 8.8 BUN 7.0 Creatinine 0.66 L Est GFR ( Amer) >60 Est GFR (Non-Af Amer) >60 BUN/Creatinine Ratio 10.6 Glucose 147 H Calcium 8.1 L Phosphorus Total Bilirubin 0.5 AST 34 ALT 56 Alkaline Phosphatase 72 Ammonia Total Protein 5.5 L Albumin 2.7 L Globulin 2.8 Albumin/Globulin Ratio 1.0 Urine Color Urine Clarity Urine pH Ur Specific [place] Urine Protein Urine Glucose (UA) Urine Ketones Urine Occult Blood Urine Nitrite Urine Bilirubin Urine Urobilinogen Ur Leukocyte Esterase Urine Opiates Screen Ur Buprenorphine Scrn Ur Oxycodone Screen Urine Methadone Screen Ur Propoxyphene Screen Ur Barbiturates Screen U Tricyclic Antidepress Ur Phencyclidine Scrn Ur Amphetamines Screen U Methamphetamines Scrn U Benzodiazepines Scrn Urine Cocaine Screen U Cannabinoids Screen POC Glucose 139 H 141 H 12/10/22 12/10/22 12/10/22 19:22 11:09 06:42 WBC RBC Hgb Hct MCV MCH MCHC RDW Plt Count MPV Neut % (Auto) Lymph % (Auto) [place] % (Auto) Eos % (Auto) Baso % (Auto) Neut # (Auto) Lymph # (Auto) [place] # (Auto) Eos # (Auto) Baso # (Auto) Abs Immat Gran (auto) Imm/Tot Granulo (auto) VBG pH 7.485 H VBG pCO2 35.8 L Sodium Potassium Chloride Carbon Dioxide Anion Gap BUN Creatinine Est GFR ( Amer) Est GFR (Non-Af Amer) BUN/Creatinine Ratio Glucose Calcium Phosphorus 3.5 Total Bilirubin AST ALT Alkaline Phosphatase Ammonia 21 Total Protein Albumin Globulin Albumin/Globulin Ratio Urine Color Yellow Urine Clarity Clear Urine pH 6.5 Ur Specific [place] 1.020 Urine Protein Negative Urine Glucose (UA) Negative Urine Ketones 40 A Urine Occult Blood Negative Urine Nitrite Negative Urine Bilirubin Negative Urine Urobilinogen 0.2 Ur Leukocyte Esterase Negative Urine Opiates Screen Positive A Ur Buprenorphine Scrn Negative Ur Oxycodone Screen Negative Urine Methadone Screen Negative Ur Propoxyphene Screen Negative Ur Barbiturates Screen Negative U Tricyclic Antidepress Positive A Ur Phencyclidine Scrn Negative Ur Amphetamines Screen Negative U Methamphetamines Scrn Negative U Benzodiazepines Scrn Positive A Urine Cocaine Screen Negative U Cannabinoids Screen Negative POC Glucose Discharge Plan Discharge Disposition: Home Health Service Condition: Fair Discharge Medications: Continued albuterol sulfate [Ventolin HFA] 90 mcg/actuation HFA aerosol inhaler 2 puff INHALATION Q4H PRN (Reason: shortness of breath or wheezing) Trelegy Ellipta 100-62.5-25 mcg blister with device 1 inh INHALATION DAILY Entresto 97-103 mg tablet 1 tab PO BID amitriptyline 50 mg tablet 50 mg PO .qhs Qty: 30 12RF pregabalin [Lyrica] 300 mg capsule 300 mg PO BID carvedilol [Coreg] 6.25 mg tablet 6.25 mg PO BID Rx Instructions: must administer with a meal/food clonidine HCl 0.2 mg tablet 0.2 mg PO TID prednisone 10 mg tablet 10 mg PO DAILY hydrocodone-acetaminophen 5-325 mg Tablet 1 tab PO QID PRN (Reason: pain) alprazolam 0.5 mg Tablet 0.5 mg PO TID PRN (Reason: anxiety) Qty: 90 0RF nicotine 21 mg/24 hr Patch 24 Hour 21 mg transdermal Q24H PRN (Reason: Nicotine Cravings) Qty: 28 0RF Activity: increase activity as tolerated Diet: advance to your usual diet Patient Instructions: Altered Mental Status (GEN) High 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 with Dr. Haywood on @ 8:30am Office #: [phone] Discharge Date/Time: 12/11/22 13:25
--- NOTE | 2022-12-11 13:55 | SWNOTE1 ---
JALEN did meet with pt to discuss dc needs. Pt lives at home alone, he normally uses a walker at home. Pt was getting up with nursing to use restroom when SW went in. Pt is going home and he has no ride. Pt attempted to call his friend, but his friend could not transport. JALEN asked if pt had home health therapy coming in, he at first stated no. SW asked if he was interested, he then stated he has therapy coming in and he named the people. At this time pt has no other discharge needs. JALEN to find out if Stephanie set up HH when he left rehab a few weeks ago. SW to resume his HH. Stephanie did set pt up with [facility]. JALEN called to verify. JALEN resumed pt's HH. JALEN called and set up trips for transport and they will be here between 1:30-2:00. JALEN notified nursing and pt.
--- NOTE | 2022-12-12 15:07 | CM.DCFOLLOWU ---
First attempt at discharge follow up call today and number provided in chart, no answer.
== END 2022-12-11 13:25 | disposition home health service (06) ==
LOC: ER 13:54 → MS 12-11 08:22
PROVIDERS: Admitting Provider Nurse Practitioner; Emergency Provider Emergency Medicine; PCP Family Medicine; Visit Provider Nurse Practitioner
DX: E86.0 Dehydration (principal); J44.9 Chronic obstructive pulmonary disease, unspecified; I25.10 Atherosclerotic heart disease of native coronary artery without angina pectoris; F41.9 Anxiety disorder, unspecified; G93.41 Metabolic encephalopathy; I25.2 Old myocardial infarction; K21.9 Gastro-esophageal reflux disease without esophagitis; I10 Essential (primary) hypertension; K44.9 Diaphragmatic hernia without obstruction or gangrene; Z87.01 Personal history of pneumonia (recurrent); F17.290 Nicotine dependence, other tobacco product, uncomplicated; M50.321 Other cervical disc degeneration at C4-C5 level; M48.02 Spinal stenosis, cervical region; I65.23 Occlusion and stenosis of bilateral carotid arteries; R00.0 Tachycardia, unspecified; Z91.81 History of falling; F10.11 Alcohol abuse, in remission; F19.91 Other psychoactive substance use, unspecified, in remission; D69.6 Thrombocytopenia, unspecified; D50.9 Iron deficiency anemia, unspecified; G89.4 Chronic pain syndrome; E87.6 Hypokalemia
CPT/HCPCS: 36415; 51701; 51798; 70450; 71045; 72125; 80053; 80307; 80320; 81003; 82140; 82800; 82948; 83605; 83735; 84075; 84100; 84484; 85025; 85610; 85730; 93005; 94640; 96361; 96374; 96375; 96376; 99285; G0378

== ENCOUNTER 2022-12-12 11:42 | Inpatient (IN) | payer MEDICARE, MEDICAID, SELFPAY ==
[2022-12-12] VITALS (28 sets, daily range): BP systolic 128–177; BP diastolic 76–101; PULSE 43–93; RESP 12–23; TEMP 36.4–36.6; O2SAT 81–97; BMI 32.3; BMI 27.3
[2022-12-12 11:53] LABS: Glucometer 106 mg/dL (74-106)
--- NOTE | 2022-12-12 12:10 | CT_ITS ---
The [address] [address] Patient Name: NITESH CALZADA MRN: [id number] date: 1955 Sex: M Assigned Patient Location: ER Current Patient Location: ED.MAIN Accession/Order Number: [id number] Exam Date: 12/12/2022 12:15 Report Date: 12/12/2022 12:47 At the request of: ANGIE BYRNES Procedure: CT stroke head/brain wo con EXAMINATION: CT stroke head/brain wo con HISTORY: fall, altered mentation COMPARISON: No relevant comparison available. TECHNIQUE: Axial CT images were obtained without IV contrast. Dose reduction techniques were achieved by using automated exposure control and/or adjustment of mA and/or kV according to patient size and/or use of iterative reconstruction technique. FINDINGS: BRAIN: Old lacunar infarction within right and left basal ganglia. No edema, hemorrhage, mass, acute infarction, or inappropriate atrophy. Areas of decreased attenuation within the periventricular deep white matter bilaterally favoring chronic small vessel ischemic changes. CSF SPACES: No hydrocephalus, subarachnoid hemorrhage, or mass. Appropriate for age. SKULL: No fracture, mass, or other significant visible lesion. SINUSES: No significant mucosal thickening or fluid on the limited views. ORBITS: No appreciable abnormality on the limited views. OTHER: Negative CT/CT stroke head/brain wo con IMPRESSION: 1. No intracranial hemorrhage or appreciable acute abnormality. 2. Old lacunar infarctions within the basal ganglia bilaterally. 3. Age consistent atrophy and chronic small vessel ischemic changes. Findings discussed with Dr. Byrnes via telephone at 12:45 PM. Electronically authenticated by: GRALAND COPELAND Date: 12/12/2022 12:47
--- NOTE | 2022-12-12 12:10 | ECG_ITS ---
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
--- NOTE | 2022-12-12 12:10 | XR_ITS ---
The [address] [address] Patient Name: NITESH CALZADA MRN: [id number] date: 1955 Sex: M Assigned Patient Location: ER Current Patient Location: ER Accession/Order Number: [id number] Exam Date: 12/12/2022 12:23 Report Date: 12/12/2022 12:51 At the request of: ANGIE HARRIS Procedure: XR chest 1V EXAMINATION: XR chest 1V HISTORY: fall, altered mentation COMPARISON: XR chest and 2322 FINDINGS: LUNGS: Underexpanded lungs with thick curvilinear stranding within left lung base. VASCULATURE: No increased pulmonary vasculature. PLEURA: No pneumothorax, effusion, or pleural thickening. CARDIAC: No cardiomegaly or cardiac silhouette abnormality. MEDIASTINUM: No visible mass or adenopathy. BONES: No fracture or visible bone lesion. OTHER: Negative. XR/XR chest 1V IMPRESSION: 1. Low lung volume examination. 2. Mild left basilar discoid atelectasis versus infiltrates. Electronically authenticated by: GARLAND COPELAND Date: 12/12/2022 12:51
--- NOTE | 2022-12-12 12:10 | CT_ITS ---
The [address] [address] Patient Name: NITESH CALZADA MRN: [id number] date: 1955 Sex: M Assigned Patient Location: ER Current Patient Location: ER Accession/Order Number: [id number] Exam Date: 12/12/2022 12:15 Report Date: 12/12/2022 12:54 At the request of: ANGIE HARRIS Procedure: CT cervical spine wo con EXAM: CT cervical spine wo con HISTORY: fall, altered mentation COMPARISON: Comparison made to CT cervical spine dated 12/10/2022. TECHNIQUE: Contiguous transaxial images obtained from skullbase through cervical spine without administration of intravenous contrast. Coronal and sagittal reformations were obtained. Dose reduction: mA and/or kV are were adjusted by automated exposure control software based upon patients height and weight. FINDINGS: There is osteopenia of the cervical spine. There is dextrocurvature of the cervical spine. There is no prevertebral soft tissue swelling or acute cervical spine fracture. There is multilevel degenerative disc disease of the cervical spine. There is minimal retrolisthesis of C3 on C4 and C4 on C5, and C5 on C6. There is uncovertebral joint osteoarthritis from C3-C4 through C5-C6. There is right C5-C6 neural foraminal narrowing. There is atlantodental articulation osteoarthritis. There is paranasal sinus mucosal thickening. There is a tiny right sphenoid sinus air-fluid level. There is partial opacification of caudal left mastoid air cells. There is mottled/neuropathy secretions within the nasopharynx. There is left carotid artery atherosclerosis. There are surgical clips at the left lung apex. CT/CT cervical spine wo con IMPRESSION: 1. No acute cervical spine fracture. 2. Degenerative disc disease of the cervical spine with minimal degenerative listheses as described. 3. Mild right C5-C6 neural foraminal narrowing. 4. Left carotid artery atherosclerosis. 5. Surgical clips at the left apex. Electronically authenticated by: EVELIO MOJICA Date: 12/12/2022 12:54
--- NOTE | 2022-12-12 12:10 | XR_ITS ---
The [address] [address] Patient Name: NITESH CALZADA MRN: [id number] date: 1955 Sex: M Assigned Patient Location: ER Current Patient Location: ER Accession/Order Number: [id number] Exam Date: 12/12/2022 12:23 Report Date: 12/12/2022 12:54 At the request of: ANGIE HARRIS Procedure: XR pelvis 1-2V PROCEDURE: XR pelvis 1-2V HISTORY: fall, altered mentation COMPARISON: XR hip right 07/19/2021 FINDINGS: BONES:Cortical irregularity involving medial aspect of left superior pubic ramus. Prior right femoral neck repair via 3 lag screws. SOFT TISSUES:No visible soft tissue swelling. EFFUSION:None visible. OTHER: Negative. XR/XR pelvis 1-2V IMPRESSION: 1. Evaluation of right hip is limited by patient rotation. No visible fracture. 2. Left superior and likely inferior pubic rami fractures suspected; evaluation is limited by patient rotation. Consider CT pelvis for additional evaluation if clinically indicated. Electronically authenticated by: GARLAND COPELAND Date: 12/12/2022 12:54
--- NOTE | 2022-12-12 12:14 | ED.GENADUL1 ---
HPI - General Adult General Chief complaint: Back Pain/Injury Stated complaint: FALL Time Seen by Provider: 12/12/22 11:50 Source: other Source information: ems Mode of arrival: ambulance History of Present Illness HPI narrative: patient brought in by EMS after home health provider found the patient on the floor with altered mentation. Patient unable to give history or ROS due to mental impairment. Unknown how long he had been on the floor. Unknown if he ingested any elicit drugs or used alcohol. EMS reported that the house was in total disarray and did not appear to be properly habitable. Chart review shows that the patient was just admitted the other day for aleterd mentation and found to have metabolic encephalopathy - was apparently just discharged. Related Data Home Medications Medication Instructions Recorded Confirmed albuterol sulfate 90 mcg/actuation 2 puff inhalation Q4H PRN 09/06/22 12/12/22 aerosol inhaler (Ventolin HFA) shortness of breath or wheezing fluticasone fur. 100 mcg-umeclid 1 inh inhalation DAILY 09/06/22 12/12/22 62.5 mcg-vilant 25 mcg inhalat.powder (Trelegy Ellipta) sacubitril 97 mg-valsartan 103 mg 1 tab PO BID 09/06/22 12/12/22 tablet (Entresto) carvedilol 6.25 mg tablet (Coreg) 6.25 mg PO BID 12/10/22 12/12/22 clonidine HCl 0.2 mg tablet 0.2 mg PO TID 12/10/22 12/12/22 hydrocodone 5 mg-acetaminophen 325 1 tab PO QID PRN pain 12/10/22 12/12/22 mg tablet prednisone 10 mg tablet 10 mg PO DAILY 12/10/22 12/12/22 pregabalin 300 mg capsule (Lyrica) 300 mg PO BID 12/10/22 12/12/22 Previous Rx's Medication Instructions Recorded amitriptyline 50 mg tablet 50 mg PO .qhs #30 tabs 09/12/22 alprazolam 0.5 mg tablet 0.5 mg PO TID PRN anxiety #90 tabs 09/17/22 Allergies Allergy/AdvReac Type Severity Reaction Status Date / Time No Known Drug Allergies Allergy Verified 09/06/22 16:50 PFSH [facility] Medical History (Updated 10/25/23 @ 14:39 by Angie Harris) Acute dyspnea ?R06.00 - Dyspnea, unspecified (ICD-10) Acute exacerbation of chronic obstructive pulmonary disease ?J44.1 - Chronic obstructive pulmonary disease with (acute) exacerbation (ICD-10) Anxiety ?F41.9 - Anxiety disorder, unspecified (ICD-10) Bruise of scrotum ?S30.22XA - Contusion of scrotum and testes, initial encounter (ICD-10) Cardiomyopathy ?I42.9 - Cardiomyopathy, unspecified (ICD-10) COPD (chronic obstructive pulmonary disease) ?J44.9 - Chronic obstructive pulmonary disease, unspecified (ICD-10) Fall ?W19.XXXA - Unspecified fall, initial encounter (ICD-10) Fracture of right hip requiring operative repair ?S72.001A - Fracture of unspecified part of neck of right femur, initial encounter for closed fracture (ICD-10) Heart attack ?I21.9 - Acute myocardial infarction, unspecified (ICD-10) Hiatal hernia with GERD ?K44.9 - Diaphragmatic hernia without obstruction or gangrene (ICD-10) ?K21.9 - Gastro-esophageal reflux disease without esophagitis (ICD-10) High blood pressure ?I10 - Essential (primary) hypertension (ICD-10) History of fractured vertebra ?Z87.81 - Personal history of (healed) traumatic fracture (ICD-10) Hypertension ?I10 - Essential (primary) hypertension (ICD-10) Left lower lobe pneumonia ?J18.9 - Pneumonia, unspecified organism (ICD-10) Pneumonia ?J18.9 - Pneumonia, unspecified organism (ICD-10) Thoracic outlet syndrome ?G54.0 - Brachial plexus disorders (ICD-10) Traumatic hematoma of right ankle ?S90.01XA - Contusion of right ankle, initial encounter (ICD-10) Weakness ?R53.1 - Weakness (ICD-10) Family History (Updated 09/06/22 @ 22:59 by Guerline Stern) Uncle Family history of CHF (congestive heart failure) Family history of COPD (chronic obstructive pulmonary disease) Family history of cancer Father Family history of cancer Other Family history of stroke Social History (Updated 09/14/22 @ 13:09 by Lynne Logan) Within the past year, how often did you have a drink containing alcohol: monthly or less Smoking status: Heavy tobacco smoker Do you use any of these nicotine containing products: e-cigarettes Non-prescribed substance use: denies use Previous occupational history: retired Highest level of school completed/degree received: high school graduate Are you now , , , , never or living with a partner: In a typical week, how many times do you talk on the telephone with family, friends, or neighbors: twice per week How often do you get together with friends or relatives: once per week How often do you attend scientology or sikhism services: never Do you belong to any clubs or organizations such as scientology groups unions, [employer] or athletic groups, or school groups: no Total score: 1 Score interpretation: A score of less than or equal to 1 indicates the most socially isolated. Little interest or pleasure in doing things: not at all Feeling down, depressed, or hopeless: not at all Feel stressed/tense/nervous/anxious/difficulty sleeping: not at all Do you think of yourself as: straight/heterosexual Gender Identity: male Exam Narrative Exam Narrative: Nurses note and vital signs reviewed and patient is not hypoxic. afebrile General: Patient is sleeping and difficult to arouse - breathing on his own with normal pulse ox. Skin: Warm, dry, no pallor noted. Head: Normocephalic, atraumatic Neck: cervical colla in place. trachea midline Eyes: pupils equal but sluggish to react ENT: TMs clear, no hemotympanum detected, no blood in posterior oropharynx. No sign of oral or facial injury Cardiovascular: Regular Rate and Rhythm Respiratory: Patient is in no respiratory distress, no accessory muscle use, lungs are clear to auscultation, no wheezing, rales or rhonchi Chest Wall: no flail chest, contusion, abrasion, or external signs of trauma. Back: No thoracic or lumbar sign of injury Musculoskeletal: no sign of long bone fracture - no deformity or swelling. Pulses at femoral, DP, PT, and popliteal were 2+ bilaterally. right lower leg with some erythema and 1+ pitting edema. GI: Normal bowel sounds, no distention, no masses appreciated. No external sign of injury noted. Neurological: Difficult to arouse - moans softly.. Withdraws slowly to painful stimuli. Psychiatric: Not verbalizing Constitutional Vital Signs, click to edit/add: Last Vital Signs Temp 97.7 F 12/12/22 12:31 Pulse 57 L 12/12/22 15:31 Resp 16 12/12/22 15:31 BP 151/97 H 12/12/22 15:31 Pulse Ox 97 12/12/22 14:40 O2 Del Method Room Air 12/12/22 11:44 Course Vital Signs Vital signs: Vital Signs Pulse Rate 62 12/12/22 11:44 Respiratory Rate 20 12/12/22 11:44 Blood Pressure 153/89 H 12/12/22 11:44 Pulse Oximetry 93 L 12/12/22 11:44 Oxygen Delivery Method Room Air 12/12/22 11:44 Temperature 97.7 F 12/12/22 12:31 Pulse Rate 57 L 12/12/22 15:31 Respiratory Rate 16 12/12/22 15:31 Blood Pressure 151/97 H 12/12/22 15:31 Pulse Oximetry 97 12/12/22 14:40 Oxygen Delivery Method Room Air 12/12/22 11:44 Medical Decision Making MDM Narrative Medical decision making narrative: the patient was brought in by EMS with cervical collar in place. He was difficult to arouse initially. Peripheral IV was established and blood was drawn and sent for testing. He was sent for CT scanning of the brain and cervical spine. EKG was also obtained. I also ordered x-rays of the chest and pelvis. CT scans did not show any worrisome acute pathology. The radiologist's detailed reports are noted below. Chest x-ray was likewise unremarkable. The x-rays of the pelvis show suspicion for pediatric rami fractures and therefore CT of the pelvis was obtained - superior and inferior comminuted pubic rami fractures were confirmed. The patient started to wake up and he was a bit aggressive, argumentative with the staff. I ordered him to receive Versed to calm him down. Lab tests fairly unremarkable. CBC and CMP notable for normal WBC, normal electrolytes and renal function, minimally elevated AST and ALT with normal alkaline phosphatase, negative ammonia, negative CK, CK-MB and myoglobin, normal troponin and negative BNP. Negative alcohol, negative acetone. CRP and sedimentation rate were slightly elevated. Call placed to Dr. Haywood and we discussed admission. Patient presented with altered mentation which may be secondary to the medications he takes at home. He does however have superior and inferior pubic rami fractures will not be able to ambulate at home with these. The patient will be admitted inpatient to the medical floor for further evaluation and treatment, including PT & OT evaluations. The patient could not be put on a bed wolf due to pubic rami fractures so I asked the ED nurse to apply a condom catheter so we could collect urine. I also ordered additional NS IVF. [facility] Medical Records Medical records reviewed: Yes I reviewed the patient's medical records Lab Data Lab results reviewed: Yes I reviewed the patient's lab results Labs: Lab Results 12/12/22 12/12/22 12/12/22 Range/Units 11:52 12:50 13:10 WBC 6.5 (4.0-11.0) 10^3/uL RBC 4.08 L (4.70-6.10) 10^6/uL Hgb 14.0 (14.0-18.0) g/dL Hct 43.3 (42.0-54.0) % MCV 106.1 H (80.0-94.0) fL MCH 34.3 H (25.9-34.0) pg MCHC 32.3 (29.9-35.2) g/dL RDW 13.4 (11.0-15.0) % Plt Count 126 L (150-450) 10^3/uL MPV 10.2 (9.5-13.5) fL Neut % (Auto) 47.3 (43.0-75.0) % Lymph % (Auto) 36.0 (20.5-60.0) % Barry % (Auto) 11.0 (1.7-12.0) % Eos % (Auto) 4.5 (0.9-7.0) % Baso % (Auto) 0.6 (0.2-2.0) % Neut # (Auto) 3.1 (1.4-6.5) 10^3/uL Lymph # (Auto) 2.3 (1.2-3.8) 10^3/uL Barry # (Auto) 0.7 (0.3-0.8) 10^3/uL Eos # (Auto) 0.3 (0.0-0.7) 10^3/uL Baso # (Auto) 0.0 (0.0-0.1) 10^3/uL Abs Immat Gran (auto) 0.04 H (0.00-0.03) 10^3/uL Imm/Tot Granulo (auto) 0.6 H (0.0-0.5) % ESR 21 H (<=20) mm/hr PT 10.3 (9.0-11.6) sec INR 0.97 VBG pH 7.324 L (7.330-7.430) VBG pCO2 50.6 (40.0-52.0) mmHg Sodium 141 (136-145) mmol/L Potassium 4.2 (3.5-5.1) mmol/L Chloride 105 (98-107) mmol/L Carbon Dioxide 30.3 (21.0-32.0) mmol/L Anion Gap 9.9 BUN 12.0 (7.0-18.0) mg/dL Creatinine 1.12 (0.70-1.30) mg/dL Est GFR ( Amer) >60 (>=60) Est GFR (Non-Af Amer) >60 (>=60) BUN/Creatinine Ratio 10.7 Glucose 97 (74-106) mg/dL Lactate 1.2 (0.4-2.0) mmol/L Calcium 8.9 (8.5-10.1) mg/dL Magnesium 2.2 (1.8-2.4) mg/dL Total Bilirubin 0.6 (0.2-1.0) mg/dL AST 39 H (15-37) U/L ALT 65 H (16-63) U/L Alkaline Phosphatase 94 (46-116) U/L Ammonia <10 L (11-32) umol/L Total Creatine Kinase 165 (39-308) U/L CK-MB (CK-2) 3.46 (<=3.60) ng/mL Myoglobin 88 (16-96) ng/mL Troponin I High Sens 6.7 (4.0-76.1) pg/mL C-Reactive Protein 2.4 H (<=1.0) mg/dL NT-Pro-B Natriuret Pep 219.0 (<=900.0) pg/mL Total Protein 7.0 (6.4-8.2) g/dL Albumin 3.5 (3.4-5.0) g/dL Globulin 3.5 g/dL Albumin/Globulin Ratio 1.0 Ethanol Quant <3 mg/dL Acetone, Qual Negative (NEGATIVE) POC Glucose 106 (74-106) mg/dL Imaging Data ct cerv: Radiologist's impression: Patient Name: NITESH CALZADA MRN: [id number] date: 1955 Sex: M Assigned Patient Location: ER Current Patient Location: ER Accession/Order Number: [id number] Exam Date: 12/12/2022 12:15 Report Date: 12/12/2022 12:54 At the request of: ANGIE HARRIS Procedure: CT cervical spine wo con EXAM: CT cervical spine wo con HISTORY: fall, altered mentation COMPARISON: Comparison made to CT cervical spine dated 12/10/2022. TECHNIQUE: Contiguous transaxial images obtained from skullbase through cervical spine without administration of intravenous contrast. Coronal and sagittal reformations were obtained. Dose reduction: mA and/or kV are were adjusted by automated exposure control software based upon patients height and weight. FINDINGS: There is osteopenia of the cervical spine. There is dextrocurvature of the cervical spine. There is no prevertebral soft tissue swelling or acute cervical spine fracture. There is multilevel degenerative disc disease of the cervical spine. There is minimal retrolisthesis of C3 on C4 and C4 on C5, and C5 on C6. There is uncovertebral joint osteoarthritis from C3-C4 through C5-C6. There is right C5-C6 neural foraminal narrowing. There is atlantodental articulation osteoarthritis. There is paranasal sinus mucosal thickening. There is a tiny right sphenoid sinus air-fluid level. There is partial opacification of caudal left mastoid air cells. There is mottled/neuropathy secretions within the nasopharynx. There is left carotid artery atherosclerosis. There are surgical clips at the left lung apex. IMPRESSION: 1. No acute cervical spine fracture. 2. Degenerative disc disease of the cervical spine with minimal degenerative listheses as described. 3. Mild right C5-C6 neural foraminal narrowing. 4. Left carotid artery atherosclerosis. 5. Surgical clips at the left apex. Electronically authenticated by: EVELIO MOJICA Date: 12/12/2022 12:54 CT scan - head: Radiologist's impression: Patient Name: NITESH CALZADA MRN: [id number] date: 1955 Sex: M Assigned Patient Location: ER Current Patient Location: ED.MAIN Accession/Order Number: [id number] Exam Date: 12/12/2022 12:15 Report Date: 12/12/2022 12:47 At the request of: ANGIE HARRIS Procedure: CT stroke head/brain wo con EXAMINATION: CT stroke head/brain wo con HISTORY: fall, altered mentation COMPARISON: No relevant comparison available. TECHNIQUE: Axial CT images were obtained without IV contrast. Dose reduction techniques were achieved by using automated exposure control and/or adjustment of mA and/or kV according to patient size and/or use of iterative reconstruction technique. FINDINGS: BRAIN: Old lacunar infarction within right and left basal ganglia. No edema, hemorrhage, mass, acute infarction, or inappropriate atrophy. Areas of decreased attenuation within the periventricular deep white matter bilaterally favoring chronic small vessel ischemic changes. CSF SPACES: No hydrocephalus, subarachnoid hemorrhage, or mass. Appropriate for age. SKULL: No fracture, mass, or other significant visible lesion. SINUSES: No significant mucosal thickening or fluid on the limited views. ORBITS: No appreciable abnormality on the limited views. OTHER: Negative IMPRESSION: 1. No intracranial hemorrhage or appreciable acute abnormality. 2. Old lacunar infarctions within the basal ganglia bilaterally. 3. Age consistent atrophy and chronic small vessel ischemic changes. Findings discussed with Dr. Harris via telephone at 12:45 PM. Electronically authenticated by: GARLAND COPELAND Date: 12/12/2022 12:47 Chest x-ray: Radiologist's impression: Patient Name: NITESH CALZADA MRN: [id number] date: 1955 Sex: M Assigned Patient Location: ER Current Patient Location: ER Accession/Order Number: [id number] Exam Date: 12/12/2022 12:23 Report Date: 12/12/2022 12:51 At the request of: ANGIE HARRIS Procedure: XR chest 1V EXAMINATION: XR chest 1V HISTORY: fall, altered mentation COMPARISON: XR chest and 2322 FINDINGS: LUNGS: Underexpanded lungs with thick curvilinear stranding within left lung base. VASCULATURE: No increased pulmonary vasculature. PLEURA: No pneumothorax, effusion, or pleural thickening. CARDIAC: No cardiomegaly or cardiac silhouette abnormality. MEDIASTINUM: No visible mass or adenopathy. BONES: No fracture or visible bone lesion. OTHER: Negative. IMPRESSION: 1. Low lung volume examination. 2. Mild left basilar discoid atelectasis versus infiltrates. Electronically authenticated by: GARLAND COPELAND Date: 12/12/2022 12:51 xr pelvis: Radiologist's impression: Patient Name: NITESH CALZADA MRN: [id number] date: 1955 Sex: M Assigned Patient Location: ER Current Patient Location: ER Accession/Order Number: [id number] Exam Date: 12/12/2022 12:23 Report Date: 12/12/2022 12:54 At the request of: ANGIE HARRIS Procedure: XR pelvis 1-2V PROCEDURE: XR pelvis 1-2V HISTORY: fall, altered mentation COMPARISON: XR hip right 07/19/2021 FINDINGS: BONES:Cortical irregularity involving medial aspect of left superior pubic ramus. Prior right femoral neck repair via 3 lag screws. SOFT TISSUES:No visible soft tissue swelling. EFFUSION:None visible. OTHER: Negative. IMPRESSION: 1. Evaluation of right hip is limited by patient rotation. No visible fracture. 2. Left superior and likely inferior pubic rami fractures suspected; evaluation is limited by patient rotation. Consider CT pelvis for additional evaluation if clinically indicated. Electronically authenticated by: GARLAND COPELAND Date: 12/12/2022 12:54 CT scan - pelvis: Radiologist's impression: Patient Name: NITESH CALZADA MRN: [id number] date: 1955 Sex: M Assigned Patient Location: ER Current Patient Location: ED.MAIN Accession/Order Number: [id number] Exam Date: 12/12/2022 13:40 Report Date: 12/12/2022 14:13 At the request of: ANGIE HARRIS Procedure: CT pelvis wo con EXAM: CT pelvis wo con HISTORY: pubic rami fractures COMPARISON: 07/31/2018 TECHNIQUE: Axial CT imaging was performed through the pelvis without intravenous contrast. Multiplanar reformats were performed. Dose reduction techniques were achieved by using automated exposure control and/or adjustment of mA and/or kV according to patient size and/or use of iterative reconstruction technique. FINDINGS: Status post ORIF of the right femoral neck, somewhat limiting the right femoral neck fracture. Fracture alignment is appropriate. Bilateral hip joints are normal in alignment. There are comminuted fractures of the left inferior pubic ramus and superior pubic ramus, adjacent to the symphysis pubis. There is no dislocation. No acute finding of the pelvic organs. No evidence of hematoma. The soft tissues are unremarkable. IMPRESSION: comminuted fractures of the left inferior pubic ramus and superior pubic ramus, adjacent to the symphysis pubis. Electronically authenticated by: SNOW WALLER Date: 12/12/2022 14:13 ECG Data Attestation: ?I have reviewed the pertinent ECG results. Interpretation: EKG interpretation: Emergency Department physician interpretation. Normal sinus rhythm at 52bpm. Normal axis, Long QTc interval. no ST segment elevation or depression. inverted T wave in aVL Discharge Plan Discharge Chief Complaint: Back Pain/Injury Clinical Impression: Altered mental status, Unwitnessed fall, Fracture of inferior pubic ramus, Fracture of superior pubic ramus Patient Disposition: Admitted As Inpatient Time of Disposition Decision: 14:39
[2022-12-12 13:00] LABS: Basophils Percent Auto 0.6 % (0.2-2.0); Eosinophils Absolute Auto 0.3 10^3/uL (0.0-0.7); Eosinophils Percent Auto 4.5 % (0.9-7.0); Hematocrit 43.3 % (42.0-54.0); Immature Granulocytes Abs Auto 0.04 10^3/uL (0.00-0.03); Immature Granulocytes Pct Auto 0.6 % (0.0-0.5); Lymphocytes Absolute Auto 2.3 10^3/uL (1.2-3.8); Mean Corpuscular HGB Conc 32.3 g/dL (29.9-35.2); Mean Corpuscular Hemoglobin 34.3 pg (25.9-34.0); Mean Platelet Volume 10.2 fL (9.5-13.5); Monocytes Absolute Auto 0.7 10^3/uL (0.3-0.8); Neutrophils Absolute Auto 3.1 10^3/uL (1.4-6.5); Neutrophils Percent Auto 47.3 % (43.0-75.0); Platelet Count 126 10^3/uL (150-450); Red Blood Count 4.08 10^6/uL (4.70-6.10); Red Cell Distribution Width 13.4 % (11.0-15.0); White Blood Count 6.5 10^3/uL (4.0-11.0)
[2022-12-12 13:02] LABS: PCO2 VBG 50.6 mmHg (40.0-52.0); pH VBG 7.324 (7.330-7.430)
[2022-12-12] MEDS: 0.9 % SODIUM CHLORIDE 1,000 ML 999 ML IV (13:04)
[2022-12-12 13:10] LABS: Acetone NEGATIVE (NEGATIVE)
[2022-12-12 13:13] LABS: Mean Corpuscular Volume 106.1 fL (80.0-94.0)
[2022-12-12 13:14] LABS: Erythrocyte Sedimentation Rate 21 mm/hr (<=20)
[2022-12-12 13:22] LABS: Ammonia <10 umol/L (11-32)
[2022-12-12 13:24] LABS: INR 0.97; Prothrombin Time 10.3 sec (9.0-11.6)
--- NOTE | 2022-12-12 13:25 | CT_ITS ---
The [address] [address] Patient Name: NITESH CALZADA MRN: [id number] date: 1955 Sex: M Assigned Patient Location: ER Current Patient Location: ED[facility] Accession/Order Number: [id number] Exam Date: 12/12/2022 13:40 Report Date: 12/12/2022 14:13 At the request of: ANGIE HARRIS Procedure: CT pelvis wo con EXAM: CT pelvis wo con HISTORY: pubic rami fractures COMPARISON: 07/31/2018 TECHNIQUE: Axial CT imaging was performed through the pelvis without intravenous contrast. Multiplanar reformats were performed. Dose reduction techniques were achieved by using automated exposure control and/or adjustment of mA and/or kV according to patient size and/or use of iterative reconstruction technique. FINDINGS: Status post ORIF of the right femoral neck, somewhat limiting the right femoral neck fracture. Fracture alignment is appropriate. Bilateral hip joints are normal in alignment. There are comminuted fractures of the left inferior pubic ramus and superior pubic ramus, adjacent to the symphysis pubis. There is no dislocation. No acute finding of the pelvic organs. No evidence of hematoma. The soft tissues are unremarkable. CT/CT pelvis wo con IMPRESSION: comminuted fractures of the left inferior pubic ramus and superior pubic ramus, adjacent to the symphysis pubis. Electronically authenticated by: SNOW WALLER Date: 12/12/2022 14:13
[2022-12-12] MEDS: MIDAZOLAM HCL 2 MG/2 ML VIAL 5 MG IV (13:32)
[2022-12-12 13:34] LABS: Alanine Aminotransferase 65 U/L (16-63); Albumin Level 3.5 g/dL (3.4-5.0); Alkaline Phosphatase 94 U/L (46-116); Anion Gap 9.9; Aspartate Amino Transferase 39 U/L (15-37); BUN Creatinine Ratio 10.7; Bilirubin Total 0.6 mg/dL (0.2-1.0); C Reactive Protein 2.4 mg/dL (<=1.0); Calcium 8.9 mg/dL (8.5-10.1); Carbon Dioxide 30.3 mmol/L (21.0-32.0); Chloride 105 mmol/L (98-107); Creatine Kinase 165 U/L (39-308); Creatine Kinase MB 3.46 ng/mL (<=3.60); Estimated GFR (African America >60 (>=60); Estimated GFR (Non-African Ame >60 (>=60); Ethanol <3 mg/dL; Globulin 3.5 g/dL; Glucose 97 mg/dL (74-106); Magnesium 2.2 mg/dL (1.8-2.4); Myoglobin 88 ng/mL (16-96); Potassium 4.2 mmol/L (3.5-5.1); Sodium 141 mmol/L (136-145); Troponin I High Sensitivity 6.7 pg/mL (4.0-76.1)
[2022-12-12 13:34] LABS: Lactate/Lactic Acid 1.2 mmol/L (0.4-2.0)
--- NOTE | 2022-12-12 16:02 | SWNOTE1 ---
Pt is being admitted to floor. SW did not see yet as he was not on the floor at time SW was leaving. SW to speak with him about SNF tomorrow.
[2022-12-12] MEDS: HYDROMORPHONE HCL 1 MG/ML CARTRIDGE IV (16:06)
[2022-12-12] MEDS: 0.9 % SODIUM CHLORIDE 1,000 ML 125 ML IV (16:12)
--- NOTE | 2022-12-12 22:52 | PC.NURSE ---
2054- patient ripped off his heating element repairer, when the RN went into his room to put it back on he told her no and get the f*ck out of my room.
--- NOTE | 2022-12-12 23:00 | PC.NURSE ---
2200- RN was rounding on patient, patient pulled the condom catheter off and bedding and linens were saturated with urine. While changing the linens, the patient became combative when turning on his side. patient told the RN and RN REVIEW that I will blow your brains out you bitch. patient continued to try to punch the nurses and aide while changing his linens. patient settled down slightly once he was covered with a clean blanket, but was still yelling. Bed alarm was set and lights were turned down. Patient continues to refuse to wear telemetry. patient is now resting in bed with the call light in reach.
[2022-12-13] VITALS (7 sets, daily range): BP systolic 144–171; BP diastolic 81–91; PULSE 46–110; RESP 18–20; TEMP 36.4–36.9; O2SAT 90–94
[2022-12-13] MEDS: LACTATED RINGER'S SOLUTION 1,000 ML 50 ML IV ×2 (01:32→23:01)
[2022-12-13] MEDS: LORAZEPAM 1 MG TABLET PO (02:07)
--- NOTE | 2022-12-13 02:20 | PC.NURSE ---
attemtp to restart IVusing vein light but unsuccessful. Dressing on the lt upper forearm removed after soaked with some saline because dressing was stuck to skin. Pt has area approx 5cm long and 4cm wide of upper lt forearm that appears to have been a skin tear but top layer of skin is avulsed. Small amount bleeding noted. Wound dressed by pt's primary nurse. IV restarted by Radha Mccormick RN using the Ultrasound in the rt upper forearm
[2022-12-13] MEDS: NICOTINE 21 MG PATCH TD (04:15)
--- NOTE | 2022-12-13 04:26 | PC.NURSE ---
0420- patient is climbing out of bed states he is leaving to get a cigarette. patient became angry when the RN stated he could not leave to get a cigarette, and started cussing at the nurse because she did not have a occupational health physician for him. He is currently in the bed tearing the TV guide papers apart. Nicotine patch was placed on the left upper back per the order. as the RN was leaving the room the patient stated, f*ck you
[2022-12-13 05:27] LABS: Basophils Percent Auto 0.4 % (0.2-2.0); Eosinophils Absolute Auto 0.2 10^3/uL (0.0-0.7); Eosinophils Percent Auto 2.9 % (0.9-7.0); Hematocrit 38.7 % (42.0-54.0); Hemoglobin 12.5 g/dL (14.0-18.0); Immature Granulocytes Abs Auto 0.03 10^3/uL (0.00-0.03); Immature Granulocytes Pct Auto 0.4 % (0.0-0.5); Lymphocytes Percent Auto 25.9 % (20.5-60.0); Mean Corpuscular HGB Conc 32.3 g/dL (29.9-35.2); Mean Corpuscular Hemoglobin 33.9 pg (25.9-34.0); Mean Corpuscular Volume 104.9 fL (80.0-94.0); Mean Platelet Volume 10.2 fL (9.5-13.5); Monocytes Absolute Auto 0.6 10^3/uL (0.3-0.8); Monocytes Percent Auto 8.1 % (1.7-12.0); Neutrophils Absolute Auto 4.8 10^3/uL (1.4-6.5); Neutrophils Percent Auto 62.3 % (43.0-75.0); Platelet Count 119 10^3/uL (150-450); Red Blood Count 3.69 10^6/uL (4.70-6.10); Red Cell Distribution Width 13.1 % (11.0-15.0); White Blood Count 7.6 10^3/uL (4.0-11.0)
[2022-12-13 05:47] LABS: Ammonia 16 umol/L (11-32)
[2022-12-13 05:53] LABS: Alanine Aminotransferase 53 U/L (16-63); Alkaline Phosphatase 84 U/L (46-116); Anion Gap 12.8; Aspartate Amino Transferase 31 U/L (15-37); BUN Creatinine Ratio 12.1; Bilirubin Total 0.6 mg/dL (0.2-1.0); Calcium 8.2 mg/dL (8.5-10.1); Chloride 107 mmol/L (98-107); Estimated GFR (African America >60 (>=60); Estimated GFR (Non-African Ame >60 (>=60); Globulin 2.9 g/dL; Glucose 85 mg/dL (74-106); Magnesium 1.7 mg/dL (1.8-2.4); Potassium 3.8 mmol/L (3.5-5.1); Sodium 143 mmol/L (136-145); Total Protein 5.9 g/dL (6.4-8.2)
[2022-12-13] MEDS: ACETAMINOPHEN 500 MG TABLET 1000 MG PO ×2 (08:27→22:23)
[2022-12-13] MEDS: CLONIDINE HCL 0.1 MG TABLET PO ×2 (08:29→22:23)
[2022-12-13] MEDS: MAGNESIUM OXIDE 400 MG TABLET PO ×2 (08:29→22:24)
[2022-12-13] MEDS: CALCIUM CARBONATE 500 MG (200MG ELEMENTAL) TAB CHEW PO ×4 (08:29→22:23)
--- NOTE | 2022-12-13 08:34 | CM.NOTE ---
Rounding with Dr. Haywood. Dr. Haywood stated he is changing the patient to inpatient today after assessing patient and concern for neurological deficits. Pt. confused, garbled speech, and noted difficulty moving left arm when Dr. Haywood asked for him to squeeze his hand. Pt. able to move right arm without difficulty. Dr. Haywood to order further testing and OT eval. Continue to monitor for discharge needs/plan after testing and PT/OT evals.
--- NOTE | 2022-12-13 08:42 | MR_ITS ---
The [address] [address] Patient Name: NITESH CALZADA MRN: [id number] date: 1955 Sex: M Assigned Patient Location: MS Current Patient Location: MS Accession/Order Number: [id number] Exam Date: 12/13/2022 11:45 Report Date: 12/13/2022 12:39 At the request of: ROME VERDUZCO Procedure: MR head/brain wo con MR head/brain wo con, 12/13/2022 11:45 AM EDT INDICATION: Left sided weakness COMPARISON: Prior CT dated 12/12/2022 TECHNIQUE: Multiplanar, multisequential MRI images of brain were obtained without injection of contrast. FINDINGS: The cerebral sulci as well as ventricular system are enlarged consistent with mild ex vacuo cerebral volume loss. There is no restricted diffusion. Hyperintensities on T2 and FLAIR images in the nugent radiata and centrum semiovale with sparing of U fibers are nonspecific, statistically most likely consistent with moderate microvascular ischemic changes. There is no intracranial mass, mass effect, midline shift, intra or extra-axial fluid collection or large hemorrhage. Normal flow-void in the intracranial vessels is noted. Nonspecific fluid within the left mastoid air cells is noted. The visualized portions of orbits, right mastoid air cells as well as paranasal sinuses are unremarkable. MR/MR head/brain wo con IMPRESSION: No acute intracranial process is noted. Electronically authenticated by: SHAW KEATING Date: 12/13/2022 12:39
--- NOTE | 2022-12-13 08:44 | P.HP_ITS ---
H&P: HPI History of Present Illness Chief complaint: FALL INFERIOR SUPERIOR PUBLIC RAIUS FRACTURE Narrative: Patient found down again by a neighbor. Presented to emergency room with altered mental status. Got combative in ER need to be sedated. X-rays obtained showed left superior and inferior pubic ramus fracture with comminuted fracture. I did discuss with case with Ortho and has typical no surgical intervention necessary for this admitted for pain control. Also patient describing left- sided weakness. With the fall will obtain work-up for possible's left CVA Review of Systems ROS Status of ROS 10 or more systems reviewed and unremarkable except as noted in history and below [facility] Medical History (Updated 12/12/22 @ 14:39 by David Byrnes) Acute dyspnea ?R06.00 - Dyspnea, unspecified (ICD-10) Acute exacerbation of chronic obstructive pulmonary disease ?J44.1 - Chronic obstructive pulmonary disease with (acute) exacerbation (ICD-10) Anxiety ?F41.9 - Anxiety disorder, unspecified (ICD-10) Bruise of scrotum ?S30.22XA - Contusion of scrotum and testes, initial encounter (ICD-10) Cardiomyopathy ?I42.9 - Cardiomyopathy, unspecified (ICD-10) COPD (chronic obstructive pulmonary disease) ?J44.9 - Chronic obstructive pulmonary disease, unspecified (ICD-10) Fall ?W19.XXXA - Unspecified fall, initial encounter (ICD-10) Fracture of right hip requiring operative repair ?S72.001A - Fracture of unspecified part of neck of right femur, initial encounter for closed fracture (ICD-10) Heart attack ?I21.9 - Acute myocardial infarction, unspecified (ICD-10) Hiatal hernia with GERD ?K44.9 - Diaphragmatic hernia without obstruction or gangrene (ICD-10) ?K21.9 - Gastro-esophageal reflux disease without esophagitis (ICD-10) High blood pressure ?I10 - Essential (primary) hypertension (ICD-10) History of fractured vertebra ?Z87.81 - Personal history of (healed) traumatic fracture (ICD-10) Hypertension ?I10 - Essential (primary) hypertension (ICD-10) Left lower lobe pneumonia ?J18.9 - Pneumonia, unspecified organism (ICD-10) Pneumonia ?J18.9 - Pneumonia, unspecified organism (ICD-10) Thoracic outlet syndrome ?G54.0 - Brachial plexus disorders (ICD-10) Traumatic hematoma of right ankle ?S90.01XA - Contusion of right ankle, initial encounter (ICD-10) Weakness ?R53.1 - Weakness (ICD-10) Family History (Updated 09/06/22 @ 22:59 by Guerline Stern) Uncle Family history of CHF (congestive heart failure) Family history of COPD (chronic obstructive pulmonary disease) Family history of cancer Father Family history of cancer Other Family history of stroke Social History (Updated 09/14/22 @ 13:09 by Lynne Logan) Within the past year, how often did you have a drink containing alcohol: monthl y or less Smoking status: Heavy tobacco smoker Do you use any of these nicotine containing products: e-cigarettes Non-prescribed substance use: denies use Previous occupational history: retired Highest level of school completed/degree received: high school graduate Are you now , , , , never or living with a partner: In a typical week, how many times do you talk on the telephone with family, friends, or neighbors: twice per week How often do you get together with friends or relatives: once per week How often do you attend hinduism or buddhism services: never Do you belong to any clubs or organizations such as hinduism groups unions, [employer] or athletic groups, or school groups: no Total score: 1 Score interpretation: A score of less than or equal to 1 indicates the most socially isolated. Little interest or pleasure in doing things: not at all Feeling down, depressed, or hopeless: not at all Feel stressed/tense/nervous/anxious/difficulty sleeping: not at all Do you think of yourself as: straight/heterosexual Gender Identity: male Meds Home Medications and Allergies Home Medications Medication Instructions Recorded Confirmed Type albuterol sulfate 90 mcg/actuation 2 puff inhalation Q4H PRN 09/06/22 12/12/22 History aerosol inhaler (Ventolin HFA) shortness of breath or wheezing fluticasone fur. 100 mcg-umeclid 1 inh inhalation DAILY 09/06/22 12/12/22 History 62.5 mcg-vilant 25 mcg inhalat.powder (Trelegy Ellipta) sacubitril 97 mg-valsartan 103 mg 1 tab PO BID 09/06/22 12/12/22 History tablet (Entresto) amitriptyline 50 mg tablet 50 mg PO .qhs #30 tabs 09/12/22 12/12/22 Rx alprazolam 0.5 mg tablet 0.5 mg PO TID PRN anxiety #90 tabs 09/17/22 12/12/22 Rx carvedilol 6.25 mg tablet (Coreg) 6.25 mg PO BID 12/10/22 12/12/22 History clonidine HCl 0.2 mg tablet 0.2 mg PO TID 12/10/22 12/12/22 History hydrocodone 5 mg-acetaminophen 325 1 tab PO QID PRN pain 12/10/22 12/12/22 History mg tablet prednisone 10 mg tablet 10 mg PO DAILY 12/10/22 12/12/22 History pregabalin 300 mg capsule (Lyrica) 300 mg PO BID 12/10/22 12/12/22 History Allergies Allergy/AdvReac Type Severity Reaction Status Date / Time No Known Drug Allergies Allergy Verified 09/06/22 16:50 Exam Constitutional Vital Signs, click to edit/add: Last Vital Signs Temp 97.6 F 12/13/22 06:53 Pulse 85 12/13/22 06:53 Resp 18 12/13/22 06:53 BP 144/81 H 12/13/22 06:53 Pulse Ox 90 L 12/13/22 06:53 O2 Del Method Room Air 12/13/22 06:53 Common normals: no apparent distress, oriented x3 and alert General appearance: cooperative Orientation/consciousness: Yes awake HENMT Common normals: normocephalic and head/scalp atraumatic Head and scalp: normocephalic and atraumatic Eye Common normals: PERRL, EOMs intact bilaterally, conjunctivae normal and no scleral icterus Conjunctiva: conjunctiva(e) normal Pupil: PERRL Neck & C-Spine Common normals: no JVD Respiratory Common normals: normal respiratory effort, no use of accessory muscles and clear to auscultation bilaterally Effort & inspection: able to speak in complete sentences and symmetric chest movement Auscultation: clear to auscultation bilaterally Cardio Common normals: no JVD, regular rate, regular rhythm, S1 normal heart sound, S2 normal heart sound, no gallops, no clicks, no murmurs, no rub and peripheral pulses 2+ throughout Rate: regular rate Rhythm: regular rhythm Heart sounds: S1 normal and S2 normal Peripheral pulses: pulses 2+ throughout GI Common normals: Normal to inspection, nondistended, normoactive bowel sounds present, soft to palpation and non-tender Palpation: soft Bladder/kidney exam: bladder normal to palpation Extremity Common normals: normal to inspection (pt not moving Left arm - seemed to before - not sure if just being uncooper) General: edema (trace bilat insteps); no clubbing and no cyanosis Neuro Common normals: oriented x3 and CN's II-XII intact bilaterally Sensorium/orientation: awake Speech: speech normal Psych Common normals: mental status grossly normal and activity/motor behavior normal Appearance: grossly normal Attitude: uncooperative and belligerent Results Labs Labs: Short CBC 12/12/22 12/13/22 Range/Units 12:50 04:38 WBC 6.5 7.6 (4.0-11.0) 10^3/uL Hgb 14.0 12.5 L (14.0-18.0) g/dL Hct 43.3 38.7 L (42.0-54.0) % Plt Count 126 L 119 L (150-450) 10^3/uL BMP 12/12/22 12/13/22 12:50 04:38 Sodium 141 143 Potassium 4.2 3.8 Chloride 105 107 Carbon Dioxide 30.3 27.0 BUN 12.0 8.0 Creatinine 1.12 0.66 L Glucose 97 85 Calcium 8.9 8.2 L Cardiac Enzymes 12/12/22 Range/Units 12:50 Total Creatine Kinase 165 (39-308) U/L CK-MB (CK-2) 3.46 (<=3.60) ng/mL Liver Function 12/12/22 12/13/22 Range/Units 12:50 04:38 Total Bilirubin 0.6 0.6 (0.2-1.0) mg/dL AST 39 H 31 (15-37) U/L ALT 65 H 53 (16-63) U/L Alkaline Phosphatase 94 84 (46-116) U/L Albumin 3.5 3.0 L (3.4-5.0) g/dL ABG ABG results: 12/12/22 12:50 VBG pH 7.324 L VBG pCO2 50.6 Assessment and Plan Assessment and Plan (1) Acute exacerbation of chronic obstructive pulmonary disease: (2) Weakness: (3) Traumatic hematoma of right ankle: (4) Chronic wound: (5) Left lower lobe pneumonia: (6) Fall: (7) Dehydration: (8) Acute dyspnea: (9) Cardiomyopathy: (10) COPD (chronic obstructive pulmonary disease): Plan AMS - better this am - buit not moving left arm fully, made is being uncooperative, but with carotid findings of possible stenosis we will check MRI scan of brain start patient on aspirin only secondary to fall. Increased bleeding risk with addition of Plavix Thrombocytopenia- monitor History of cardiomyopathy-secondary to [place]- reviewed previous echocardiogram Low back pain-this is chronic for him, continue with current medication iron deficiency anemia- continue to monitor hypocalcemia-supplement With motor deficit change patient to inpatient status check MRI scan of brain possible telestroke versus telemetry neuro consultation depending on outcome of MRI scan
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
--- NOTE | 2022-12-13 12:12 | SWNOTE1 ---
[facility] is [facility], SW did send updates.
[2022-12-13] MEDS: HYDROMORPHONE HCL 0.5 MG/0.5 ML SYRINGE IV ×2 (12:38→16:32)
[2022-12-13] MEDS: NYSTATIN 500,000 UNIT/5 ML ORAL.SUSP 500000 UNIT PO ×3 (12:38→22:23)
[2022-12-13] MEDS: ASPIRIN 325 MG TABLET PO (12:38)
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
--- NOTE | 2022-12-13 15:00 | SWNOTE1 ---
SW did reach out to [facility] to see how many skilled days pt has left, he has 40 days left.
[2022-12-13] MEDS: CLORDIAZEPOXIDE HCl 25 MG CAPSULE PO (17:58)
[2022-12-13 19:57] LABS: A. calcoaceticus-baumannii Cpx NOT DETECTED (NOT DETECTE); Bacteroides fragilis NOT DETECTED (NOT DETECTE); Candida albicans NOT DETECTED (NOT DETECTE); Candida auris NOT DETECTED (NOT DETECTE); Candida glabrata NOT DETECTED (NOT DETECTE); Candida krusei NOT DETECTED (NOT DETECTE); Candida parapsilosis NOT DETECTED (NOT DETECTE); Candida tropicalis NOT DETECTED (NOT DETECTE); Cryptococcus neoformans/gattii NOT DETECTED (NOT DETECTE); Enterobacter cloacae complex NOT DETECTED (NOT DETECTE); Enterobacterales NOT DETECTED (NOT DETECTE); Enterococcus faecalis NOT DETECTED (NOT DETECTE); Enterococcus faecium NOT DETECTED (NOT DETECTE); Haemophilus influenzae NOT DETECTED (NOT DETECTE); Klebsiella aerogenes NOT DETECTED (NOT DETECTE); Klebsiella pneumoniae group NOT DETECTED (NOT DETECTE); Listeria monocytogenes NOT DETECTED (NOT DETECTE); Neisseria meningitidis NOT DETECTED (NOT DETECTE); Proteus spp. NOT DETECTED (NOT DETECTE); Pseudomonas aeruginosa NOT DETECTED (NOT DETECTE); Salmonella spp. NOT DETECTED (NOT DETECTE); Serratia marcescens NOT DETECTED (NOT DETECTE); Staphylococcus epidermidis NOT DETECTED (NOT DETECTE); Staphylococcus lugdunensis NOT DETECTED (NOT DETECTE); Stenotrophomonas maltophilia NOT DETECTED (NOT DETECTE); Streptococcus agalactiae NOT DETECTED (NOT DETECTE); Streptococcus pneumoniae NOT DETECTED (NOT DETECTE); Streptococcus pyogenes NOT DETECTED (NOT DETECTE); Streptococcus spp. NOT DETECTED (NOT DETECTE)
[2022-12-13 21:15] LABS: Staphylococcus spp. DETECTED (NOT DETECTE)
[2022-12-14] VITALS (8 sets, daily range): BP systolic 129–161; BP diastolic 86–102; PULSE 64–109; RESP 18; TEMP 36.7; O2SAT 92–96
[2022-12-14] MEDS: ACETAMINOPHEN 500 MG TABLET 1000 MG PO ×2 (04:36→14:25)
[2022-12-14] MEDS: LORAZEPAM 1 MG TABLET PO ×2 (04:36→21:51)
[2022-12-14 05:03] LABS: Hematocrit 40.5 % (42.0-54.0); Hemoglobin 13.3 g/dL (14.0-18.0); Mean Corpuscular HGB Conc 32.8 g/dL (29.9-35.2); Mean Corpuscular Hemoglobin 33.3 pg (25.9-34.0); Mean Corpuscular Volume 101.5 fL (80.0-94.0); Mean Platelet Volume 9.6 fL (9.5-13.5); Platelet Count 128 10^3/uL (150-450); Red Blood Count 3.99 10^6/uL (4.70-6.10); White Blood Count 6.1 10^3/uL (4.0-11.0)
[2022-12-14 05:26] LABS: Ammonia 15 umol/L (11-32)
[2022-12-14] MEDS: NYSTATIN 500,000 UNIT/5 ML ORAL.SUSP 500000 UNIT PO ×4 (05:39→21:01)
[2022-12-14 06:18] LABS: Alanine Aminotransferase 54 U/L (16-63); Albumin Globulin Ratio 0.9; Albumin Level 3.2 g/dL (3.4-5.0); Alkaline Phosphatase 87 U/L (46-116); Aspartate Amino Transferase 38 U/L (15-37); BUN Creatinine Ratio 7.8; Bilirubin Total 0.6 mg/dL (0.2-1.0); Carbon Dioxide 29.3 mmol/L (21.0-32.0); Chloride 104 mmol/L (98-107); Estimated GFR (African America >60 (>=60); Estimated GFR (Non-African Ame >60 (>=60); Globulin 3.4 g/dL; Glucose 89 mg/dL (74-106); Magnesium 1.8 mg/dL (1.8-2.4); Potassium 3.3 mmol/L (3.5-5.1); Sodium 141 mmol/L (136-145); Total Protein 6.6 g/dL (6.4-8.2)
--- NOTE | 2022-12-14 07:23 | PC.NURSE ---
Patient lost IV access during the night, Dr. Haywood was made aware this morning. RN asked for a midline order, and stated to hold off.
[2022-12-14 08:38] LABS: Red Cell Distribution Width 13.4 % (11.0-15.0)
[2022-12-14] MEDS: CLORDIAZEPOXIDE HCl 25 MG CAPSULE PO ×3 (08:57→23:53)
[2022-12-14] MEDS: MAGNESIUM OXIDE 400 MG TABLET PO ×2 (08:57→19:46)
[2022-12-14] MEDS: CALCIUM CARBONATE 500 MG (200MG ELEMENTAL) TAB CHEW PO ×4 (08:57→19:46)
[2022-12-14] MEDS: ASPIRIN 325 MG TABLET PO (08:57)
[2022-12-14] MEDS: CLONIDINE HCL 0.1 MG TABLET 0.2 MG PO (08:57)
--- NOTE | 2022-12-14 08:59 | SWNOTE1 ---
SW to assess pt today, it is recommended he goes skilled. SW to speak with pt about this.
--- NOTE | 2022-12-14 09:02 | CM.NOTE ---
Rounds made with Dr. Haywood, pt still having some underlying confusion. Dr. Haywood did discuss skilled therapy at discharge with pt. Pt then states You are not my mother . Unsure how much pt is understanding.
--- NOTE | 2022-12-14 09:04 | P.PN_ITS ---
Progress Note: Subjective Subjective Interval history: Patient with confusion at times. Exam Constitutional Vital Signs, click to edit/add: Last Vital Signs Temp 98.1 F 12/14/22 05:15 Pulse 96 H 12/14/22 05:15 Resp 18 12/14/22 05:15 BP 152/86 H 12/14/22 05:15 Pulse Ox 92 L 12/14/22 05:15 O2 Del Method Room Air 12/14/22 05:15 Common normals: no apparent distress, oriented x3 and alert General appearance: cooperative Orientation/consciousness: Yes awake HENMT Common normals: normocephalic and head/scalp atraumatic Head and scalp: normocephalic and atraumatic Eye Common normals: PERRL, EOMs intact bilaterally, conjunctivae normal and no scleral icterus Conjunctiva: conjunctiva(e) normal Pupil: PERRL Neck & C-Spine Common normals: no JVD Respiratory Common normals: normal respiratory effort, no use of accessory muscles and clear to auscultation bilaterally Effort & inspection: able to speak in complete sentences and symmetric chest movement Auscultation: clear to auscultation bilaterally Cardio Common normals: no JVD, regular rate, regular rhythm, S1 normal heart sound, S2 normal heart sound, no gallops, no clicks, no murmurs, no rub and peripheral pulses 2+ throughout Rate: regular rate Rhythm: regular rhythm Heart sounds: S1 normal and S2 normal Peripheral pulses: pulses 2+ throughout GI Common normals: Normal to inspection, nondistended, normoactive bowel sounds present, soft to palpation and non-tender Palpation: soft Bladder/kidney exam: bladder normal to palpation Extremity Common normals: normal to inspection (pt not moving Left arm - seemed to before - not sure if just being uncooper) General: edema (trace bilat insteps); no clubbing and no cyanosis Neuro Common normals: oriented x3 and CN's II-XII intact bilaterally Sensorium/orientation: awake Speech: speech normal Other: Patient would not move his left arm yesterday. But is moving it well today. Psych Common normals: mental status grossly normal and activity/motor behavior normal Appearance: grossly normal Attitude: uncooperative and belligerent Progress Note: Objective Labs Labs: Short CBC 12/14/22 Range/Units 04:25 WBC 6.1 (4.0-11.0) 10^3/uL Hgb 13.3 L (14.0-18.0) g/dL Hct 40.5 L (42.0-54.0) % Plt Count 128 L (150-450) 10^3/uL [facility] 12/14/22 04:25 Sodium 141 Potassium 3.3 L Chloride 104 Carbon Dioxide 29.3 BUN 6.0 L Creatinine 0.77 Glucose 89 Calcium 9.0 Liver Function 12/14/22 Range/Units 04:25 Total Bilirubin 0.6 (0.2-1.0) mg/dL AST 38 H (15-37) U/L ALT 54 (16-63) U/L Alkaline Phosphatase 87 (46-116) U/L Albumin 3.2 L (3.4-5.0) g/dL Progress Note: A&P Assessment and Plan (1) Acute exacerbation of chronic obstructive pulmonary disease: (2) Weakness: (3) Traumatic hematoma of right ankle: (4) Chronic wound: (5) Left lower lobe pneumonia: (6) Fall: (7) Dehydration: (8) Acute dyspnea: (9) Cardiomyopathy: (10) COPD (chronic obstructive pulmonary disease): Plan AMS - better this am -he is more awake and alert today. Does move his left arm, yesterday probably not moving it just to be cantankerous - MRI normal Inf and Sup pubic ramus Fxs - comminuted - discussed with ortho - no treatment - needs rehab thought Thrombocytopenia- monitor + Blood culture - appears contaminate History of cardiomyopathy-secondary to [place]- reviewed previous echocardiogram Low back pain-this is chronic for him, continue with current medication iron deficiency anemia- continue to monitor hypocalcemia-supplement Hypokalemia - supplement With motor deficit change patient to inpatient status check MRI scan of brain possible telestroke versus telemetry neuro consultation depending on outcome of MRI scan ?
--- NOTE | 2022-12-14 09:04 | SWNOTE1 ---
JALEN did send referral to [facility] to see if they could accept. JALEN did get call back from [facility], they are not able to accept as they feel he will eventually need fci and have no fci medicaid beds. JALEN to speak with pt and possibly pt's sister Sridevi.
--- NOTE | 2022-12-14 09:25 | SWNOTE1 ---
SW spoke with pt, he started talking about his brother and sister. Pt then started talking about Dr. Haywood and how he was not sure about him and he was talking to him last night and this morning. Pt was sitting on end table talking with SW. Pt was not aggressive and talking to SW calmly. Pt continued to speak about Dr. Haywood. SW spoke with pt about going to [facility], SW let him know [facility] cannot accept him because they have no availability for him snf if needed. JALEN asked pt if he had heard of [facility]? He stated no. JALEN then received a phone call, SW to stop back in.
--- NOTE | 2022-12-14 10:06 | PC.NURSE ---
Patient is restless and agitated. He is very anxious. Patient is unable to redirect. Hair Sample Matcher has attempted distraction techniques. Patient became increasingly agitated and anxious.
[2022-12-14 10:51] LABS: Eosinophils Absolute Manual 0.12 10^3/uL (0.00-0.70); Lymphocytes Absolute Manual 2.68 10^3/uL (1.20-3.80); Segmented Neut Absolute Manual 2.98 10^3/uL (1.4-6.5)
[2022-12-14 10:52] LABS: Anisocytosis 1+; Macrocytosis 1+
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
--- NOTE | 2022-12-14 12:09 | SWNOTE1 ---
JALEN called Kyung at [facility], medical education coordinator, and let her know referral will be coming. Kyung provided email in case it did not go through.
[2022-12-14] MEDS: POTASSIUM CHLORIDE 10 MEQ ER TABLET 20 MEQ PO ×2 (12:18→19:47)
[2022-12-14] MEDS: NICOTINE 21 MG PATCH TD (12:18)
--- NOTE | 2022-12-14 12:35 | CM.DCFOLLOWU ---
Follow-up phone call not completed, pt was re-admitted to hospital.
--- NOTE | 2022-12-14 12:35 | SWNOTE1 ---
SW sent email to Kyung of referral, fax did not go through.
--- NOTE | 2022-12-14 13:25 | PT.DAILY ---
Physical Therapy Daily Note PT Daily Note/Assess Start: 12/14/22 13:23 Freq: Status: Active Protocol: Document 12/14/22 11:20 JACOBO (Rec: 12/14/22 13:25 SPANFALONE PT-LPTP-) Visit Not Completed Visit Not Completed Visit Not Completed Due to: Nursing request to hold Other Reason Visit Not Completed Hold per nursing. Pt is agitated when awake and pt is resting at this time. Will follow up this afternoon. Physical Therapy Daily Note/Assessment Time In/Time Out Time In 11:20 Time Out 11:20 Pain In Pain N/A Pain Out Pain N/A GG. Functional Abilities and Goals-Complete for Swing Bed Patients Only [id number]. Self-Care [id number]. Mobility
--- NOTE | 2022-12-14 13:46 | SWNOTE1 ---
POA paperwork was sent to JALEN from [facility] and placed on chart.
[2022-12-14] MEDS: ZIPRASIDONE MESYLATE 20 MG VIAL IM (13:49)
[2022-12-14] MEDS: CLONIDINE HCL 0.2 MG TABLET PO ×2 (14:26→19:46)
--- NOTE | 2022-12-14 14:40 | SWNOTE1 ---
JALEN called and spoke with the SW from [facility]. She stated his referral had been flagged due to his behaviors and it had to be sent to the [facility] office. She is only in until 3:00pm today, so may not have an answer until Saturday. [email or web address] and may have any answer by 4:30. JALEN to call nitenisha to let her know.
--- NOTE | 2022-12-14 16:04 | SWNOTE1 ---
JALEN updated doctor in regards to pt possibly staying until Saturday until we hear back from [facility] at [facility]. JALEN called and updated Tiff, the HCPOA. JALEN also reviewed IMM form with Tiff, she voiced understanding, no questions at this time. JALEN signed on behalf of POFrancesca, copy placed in chart and original placed in room. JALEN updated nursing as well.
--- NOTE | 2022-12-14 16:40 | SWNOTE1 ---
SW had voicemail and [facility] is able to accept.
--- NOTE | 2022-12-14 16:42 | SWNOTE1 ---
JALEN notified nursing and Dr. Haywood, JALEN had packet ready for discharge for weekend if medically stable.
[2022-12-14] MEDS: HYDROMORPHONE HCL 0.5 MG/0.5 ML SYRINGE IM (16:48)
[2022-12-14] MEDS: TRAMADOL HCL 50 MG TABLET PO (19:46)
[2022-12-15] VITALS (19 sets, daily range): BP systolic 146–170; BP diastolic 90–102; PULSE 65–117; RESP 16–18; TEMP 36.1–36.2; O2SAT 93–97
[2022-12-15 00:09] LABS: Bilirubin Urine NEGATIVE (NEGATIVE); Blood Urine NEGATIVE (NEGATIVE); Clarity Urine CLEAR (CLEAR); Color Urine YELLOW (YELLOW); Glucose Urine UA 100 mg/dL (NEGATIVE); Ketones Urine NEGATIVE (NEGATIVE); Leukocyte Esterase Urine NEGATIVE (NEGATIVE); Nitrite Urine NEGATIVE (NEGATIVE); Protein Urine NEGATIVE (NEG/TRACE); Urobilinogen Urine 0.2 EU/dL (0.2-1.0)
[2022-12-15 00:20] LABS: Amphetamine Screen Urine NEGATIVE (NEGATIVE); Barbiturates Screen Urine NEGATIVE (NEGATIVE); Benzodiazepines Screen Urine POSITIVE (NEGATIVE); Buprenorphine Screen Urine NEGATIVE (NEGATIVE); Cannabinoid Screen Urine NEGATIVE (NEGATIVE); Cocaine Screen Urine NEGATIVE (NEGATIVE); Methadone Screen Urine NEGATIVE (NEGATIVE); Methamphetamines Screen Urine NEGATIVE (NEGATIVE); Opiate Screen Urine POSITIVE (NEGATIVE); Oxycodone Screen Urine NEGATIVE (NEGATIVE); Phencyclidine Screen Urine NEGATIVE (NEGATIVE); Tricyclic Antidepressant Urine POSITIVE (NEGATIVE)
[2022-12-15 00:22] LABS: Urine Microscopic Indicated NO
[2022-12-15] MEDS: LORAZEPAM 1 MG TABLET PO (05:09)
[2022-12-15] MEDS: TRAMADOL HCL 50 MG TABLET PO ×3 (05:10→18:37)
[2022-12-15] MEDS: ACETAMINOPHEN 500 MG TABLET 1000 MG PO ×2 (05:10→20:43)
[2022-12-15] MEDS: NYSTATIN 500,000 UNIT/5 ML ORAL.SUSP 500000 UNIT PO ×4 (05:11→21:38)
[2022-12-15] MEDS: CLONIDINE HCL 0.2 MG TABLET PO ×3 (05:11→20:43)
[2022-12-15 05:29] LABS: Basophils Absolute Auto 0.1 10^3/uL (0.0-0.1); Basophils Percent Auto 0.5 % (0.2-2.0); Eosinophils Absolute Auto 0.2 10^3/uL (0.0-0.7); Hematocrit 40.4 % (42.0-54.0); Hemoglobin 13.4 g/dL (14.0-18.0); Immature Granulocytes Abs Auto 0.03 10^3/uL (0.00-0.03); Immature Granulocytes Pct Auto 0.3 % (0.0-0.5); Lymphocytes Absolute Auto 2.2 10^3/uL (1.2-3.8); Lymphocytes Percent Auto 20.3 % (20.5-60.0); Mean Corpuscular HGB Conc 33.2 g/dL (29.9-35.2); Mean Corpuscular Hemoglobin 34.4 pg (25.9-34.0); Mean Corpuscular Volume 103.6 fL (80.0-94.0); Mean Platelet Volume 9.7 fL (9.5-13.5); Monocytes Absolute Auto 0.8 10^3/uL (0.3-0.8); Monocytes Percent Auto 7.9 % (1.7-12.0); Neutrophils Absolute Auto 7.3 10^3/uL (1.4-6.5); Platelet Count 149 10^3/uL (150-450); Red Cell Distribution Width 13.2 % (11.0-15.0); White Blood Count 10.6 10^3/uL (4.0-11.0)
[2022-12-15 05:48] LABS: Alanine Aminotransferase 40 U/L (16-63); Albumin Level 3.2 g/dL (3.4-5.0); Alkaline Phosphatase 85 U/L (46-116); Anion Gap 9.2; Aspartate Amino Transferase 32 U/L (15-37); BUN Creatinine Ratio 5.6; Bilirubin Total 0.7 mg/dL (0.2-1.0); Calcium 9.1 mg/dL (8.5-10.1); Carbon Dioxide 31.2 mmol/L (21.0-32.0); Chloride 105 mmol/L (98-107); Estimated GFR (African America >60 (>=60); Estimated GFR (Non-African Ame >60 (>=60); Globulin 3.3 g/dL; Glucose 107 mg/dL (74-106); Potassium 3.4 mmol/L (3.5-5.1); Sodium 142 mmol/L (136-145); Total Protein 6.5 g/dL (6.4-8.2)
[2022-12-15] MEDS: CALCIUM CARBONATE 500 MG (200MG ELEMENTAL) TAB CHEW PO ×4 (08:25→20:44)
[2022-12-15] MEDS: POTASSIUM CHLORIDE 10 MEQ ER TABLET 20 MEQ PO ×2 (08:25→20:43)
[2022-12-15] MEDS: MAGNESIUM OXIDE 400 MG TABLET PO ×2 (08:25→20:44)
[2022-12-15] MEDS: ASPIRIN 325 MG TABLET PO (08:25)
[2022-12-15] MEDS: CLORDIAZEPOXIDE HCl 25 MG CAPSULE PO (08:25)
--- NOTE | 2022-12-15 11:08 | PT.DAILY ---
Physical Therapy Daily Note PT Daily Note/Assess Start: 12/14/22 13:23 Freq: Status: Active Protocol: Document 12/15/22 10:05 ARTURO (Rec: 12/15/22 11:08 ARTURO [id number]) Physical Therapy Daily Note/Assessment Time In/Time Out Time In 10:05 Time Out 10:15 Pain In Pain N/A Pain Out Pain N/A Subjective Subjective Patient reports just got back to bed, nursing confirmed this and said patient put self back to bed, is up moving fair in room, but still high fall risk. Patient reports I just want to nap, this sucks, I hurt, I never want to fall again. Does not rate pain level even when prompted. Therapeutic Exercise Time Therapeutic Exercise Minutes (minutes) 10 Therapeutic Exercise Units 1 Therapeutic Exercise Treatment Therapeutic Exercise Treatment Reviewed supine exercises with AP, QS, HS, and GS per PT POC /goals. Patient is able to complete 10 reps, but does need cuing on technique. Patient educated to perform these minimum of 3x per day to help with stiffness and build strength. Patient agrees. Total Physical Therapy Time Total Therapy Minutes 10 Total Physical Therapy Units 1 Summary Daily Note Summary Reviewed HEP of supine exercises with patient verbalizes understanding. Patient is more appropriate with conversation today, and does not appear to be confused at time of PT RX. Patient does decline gait and transfers due to just getting back to bed and elevated pain levels. Nursing reports this to be true and was SBA with use of RW.
--- NOTE | 2022-12-15 11:53 | P.PN_ITS ---
Progress Note: Subjective Subjective Interval history: Patient more awake and alert this morning. We did discuss his pain control. Exam Constitutional Vital Signs, click to edit/add: Last Vital Signs Temp 98.1 F 12/14/22 19:32 Pulse 85 12/15/22 11:51 Resp 18 12/15/22 10:03 BP 153/92 H 12/15/22 06:00 Pulse Ox 96 12/14/22 20:27 O2 Del Method Room Air 12/14/22 20:27 Common normals: no apparent distress, oriented x3 and alert General appearance: cooperative Orientation/consciousness: Yes awake HENMT Common normals: normocephalic and head/scalp atraumatic Head and scalp: normocephalic and atraumatic Eye Common normals: PERRL, EOMs intact bilaterally, conjunctivae normal and no scleral icterus Conjunctiva: conjunctiva(e) normal Pupil: PERRL Neck & C-Spine Common normals: no JVD Respiratory Common normals: normal respiratory effort, no use of accessory muscles and clear to auscultation bilaterally Effort & inspection: able to speak in complete sentences and symmetric chest movement Auscultation: clear to auscultation bilaterally Cardio Common normals: no JVD, regular rate, regular rhythm, S1 normal heart sound, S2 normal heart sound, no gallops, no clicks, no murmurs, no rub and peripheral pulses 2+ throughout Rate: regular rate Rhythm: regular rhythm Heart sounds: S1 normal and S2 normal Peripheral pulses: pulses 2+ throughout GI Common normals: Normal to inspection, nondistended, normoactive bowel sounds present, soft to palpation and non-tender Palpation: soft Bladder/kidney exam: bladder normal to palpation Extremity Common normals: normal to inspection (pt not moving Left arm - seemed to before - not sure if just being uncooper) General: edema (trace bilat insteps); no clubbing and no cyanosis Neuro Common normals: oriented x3 and CN's II-XII intact bilaterally Sensorium/orientation: awake Speech: speech normal Psych Common normals: mental status grossly normal and activity/motor behavior normal Appearance: grossly normal Attitude: uncooperative and belligerent Progress Note: Objective Labs Labs: Short CBC 12/15/22 Range/Units 04:46 WBC 10.6 (4.0-11.0) 10^3/uL Hgb 13.4 L (14.0-18.0) g/dL Hct 40.4 L (42.0-54.0) % Plt Count 149 L (150-450) 10^3/uL BMP 12/15/22 04:46 Sodium 142 Potassium 3.4 L Chloride 105 Carbon Dioxide 31.2 BUN 5.0 L Creatinine 0.90 Glucose 107 H Calcium 9.1 Liver Function 12/15/22 Range/Units 04:46 Total Bilirubin 0.7 (0.2-1.0) mg/dL AST 32 (15-37) U/L ALT 40 (16-63) U/L Alkaline Phosphatase 85 (46-116) U/L Albumin 3.2 L (3.4-5.0) g/dL Urine 12/12/22 Range/Units 23:50 Urine Color Yellow (YELLOW) Urine Clarity Clear (CLEAR) Urine pH 6.0 (5.0-9.0) Ur Specific [place] 1.010 (1.005-1.025) Urine Protein Negative (NEG/TRACE) mg/dL Urine Glucose (UA) 100 A (NEGATIVE) mg/dL Progress Note: A&P Assessment and Plan (1) Acute exacerbation of chronic obstructive pulmonary disease: (2) Weakness: (3) Traumatic hematoma of right ankle: (4) Chronic wound: (5) Left lower lobe pneumonia: (6) Fall: (7) Dehydration: (8) Acute dyspnea: (9) Cardiomyopathy: (10) COPD (chronic obstructive pulmonary disease): Plan AMS - better this am -he is more awake and alert today. Stable Inf and Sup pubic ramus Fxs - comminuted - discussed with ortho - no treatment - needs rehab thought-planning on tomorrow Thrombocytopenia- monitor-improved + Blood culture - appears contaminate History of cardiomyopathy-secondary to [place]- reviewed previous echocardiogram Low back pain-this is chronic for him, continue with current medication iron deficiency anemia- continue to monitor-improved hypocalcemia-supplement Mild protein calorie malnutrition-monitor diet Hypokalemia - supplement-improved
--- NOTE | 2022-12-15 18:29 | PC.NURSE ---
patient offered dinner x2 patient states he is full and doesnt want to eat dinner.
[2022-12-16] VITALS (11 sets, daily range): BP systolic 140–193; BP diastolic 80–111; PULSE 63–84; RESP 16–18; TEMP 36.5–36.7; O2SAT 90–94
[2022-12-16] MEDS: HYDRALAZINE HCL 50 MG TABLET 25 MG PO (04:58)
[2022-12-16] MEDS: NYSTATIN 500,000 UNIT/5 ML ORAL.SUSP 500000 UNIT PO (05:00)
[2022-12-16] MEDS: CLONIDINE HCL 0.2 MG TABLET PO (05:00)
[2022-12-16 06:02] LABS: Basophils Absolute Auto 0.1 10^3/uL (0.0-0.1); Basophils Percent Auto 0.8 % (0.2-2.0); Eosinophils Absolute Auto 0.3 10^3/uL (0.0-0.7); Eosinophils Percent Auto 4.6 % (0.9-7.0); Hematocrit 41.5 % (42.0-54.0); Hemoglobin 13.5 g/dL (14.0-18.0); Immature Granulocytes Abs Auto 0.02 10^3/uL (0.00-0.03); Immature Granulocytes Pct Auto 0.3 % (0.0-0.5); Lymphocytes Absolute Auto 2.7 10^3/uL (1.2-3.8); Lymphocytes Percent Auto 41.8 % (20.5-60.0); Mean Corpuscular HGB Conc 32.5 g/dL (29.9-35.2); Mean Corpuscular Volume 104.5 fL (80.0-94.0); Mean Platelet Volume 9.9 fL (9.5-13.5); Monocytes Absolute Auto 0.6 10^3/uL (0.3-0.8); Monocytes Percent Auto 9.4 % (1.7-12.0); Neutrophils Absolute Auto 2.7 10^3/uL (1.4-6.5); Neutrophils Percent Auto 43.1 % (43.0-75.0); Platelet Count 147 10^3/uL (150-450); Red Blood Count 3.97 10^6/uL (4.70-6.10); Red Cell Distribution Width 13.2 % (11.0-15.0); White Blood Count 6.4 10^3/uL (4.0-11.0)
[2022-12-16 06:35] LABS: Alanine Aminotransferase 45 U/L (16-63); Albumin Globulin Ratio 0.8; Albumin Level 3.1 g/dL (3.4-5.0); Alkaline Phosphatase 85 U/L (46-116); Anion Gap 11.1; Aspartate Amino Transferase 28 U/L (15-37); BUN Creatinine Ratio 13.2; Bilirubin Total 0.6 mg/dL (0.2-1.0); Calcium 9.1 mg/dL (8.5-10.1); Carbon Dioxide 29.7 mmol/L (21.0-32.0); Chloride 105 mmol/L (98-107); Estimated GFR (African America >60 (>=60); Estimated GFR (Non-African Ame >60 (>=60); Globulin 3.7 g/dL; Glucose 106 mg/dL (74-106); Potassium 3.8 mmol/L (3.5-5.1); Sodium 142 mmol/L (136-145); Total Protein 6.8 g/dL (6.4-8.2)
[2022-12-16] MEDS: CALCIUM CARBONATE 500 MG (200MG ELEMENTAL) TAB CHEW PO ×2 (08:40→10:35)
[2022-12-16] MEDS: POTASSIUM CHLORIDE 10 MEQ ER TABLET 20 MEQ PO (08:40)
[2022-12-16] MEDS: MAGNESIUM OXIDE 400 MG TABLET PO (08:40)
[2022-12-16] MEDS: ASPIRIN 325 MG TABLET PO (08:40)
[2022-12-16] MEDS: CARVEDILOL 12.5 MG TABLET PO (08:48)
[2022-12-16] MEDS: SACUBITRIL/VALSARTAN 24 MG-26 MG TABLET 2 TAB PO (08:48)
--- NOTE | 2022-12-16 10:41 | P.DS_ITS ---
DS: Providers Provider Date of admission: 12/13/22 08:45 Primary care physician: Napoleon Haywood MD Consults: 12/12/22 18:12 Physical Therapy Eval and Treat Routine Reason for consultation: pubic ramus fx Has provider been notified: No 12/13/22 06:13 Consult to Rn Private Duty Routine Reason for consult:: [facility] 12/13/22 08:47 Occupational Therapy Eval and Treat Routine Reason for consultation: pubic ramus fx Has provider been notified: No DS: Diagnosis Discharge Diagnosis (1) Acute exacerbation of chronic obstructive pulmonary disease: (2) Weakness: (3) Traumatic hematoma of right ankle: (4) Chronic wound: (5) Left lower lobe pneumonia: (6) Fall: (7) Dehydration: (8) Acute dyspnea: (9) Cardiomyopathy: (10) COPD (chronic obstructive pulmonary disease): Plan AMS - better this am -he is more awake and alert today. Stable Inf and Sup pubic ramus Fxs - comminuted Thrombocytopenia + Blood culture - appears contaminate - Staph capitus History of cardiomyopathy-secondary to [place] Low back pain iron deficiency anemia hypocalcemia Mild protein calorie malnutrition Hypokalemia DS: Summary Hospital Course Hospital Course: Patient recently with multiple falls. This last time again without syncope. Just fell. Found by neighbor though. Altered mental status at the time. In ER found to have acute left superior and inferior pubic ramus fractures, comminuted. Patient was admitted for observation and then admitted after patient was still confused the following morning. We did check an MRI scan. He had some left-sided weakness. His MRI scan was unremarkable. His left-sided weakness has resolved. At the time patient was not being cooperative with the exam. With his improvement and no findings on MRI scan suggest possible patient just electively not following commands. He did have a positive blood culture which was obtained due to the altered mental status. But is staph coccus capitis so likely contaminant. He does have some mild thrombosis I took Mercedes. This fairly stable. Does have some iron deficiency anemia. Also stable. His altered mental status is back to his baseline. He is stable for discharge to rehab. Medications see list. I will follow patient after discharge from rehab Time Spent with Patient Time attestation: Total time spent providing and/or coordinating discharge services: Exam Constitutional Vital Signs, click to edit/add: Last Vital Signs Temp 98.0 F 12/16/22 08:50 Pulse 84 12/16/22 08:50 Resp 16 12/16/22 08:50 BP 140/87 12/16/22 08:50 Pulse Ox 90 L 12/16/22 10:14 O2 Del Method Room Air 12/16/22 10:14 Common normals: no apparent distress, oriented x3 and alert General appearance: cooperative Orientation/consciousness: Yes awake [facility] Common normals: normocephalic and head/scalp atraumatic Head and scalp: normocephalic and atraumatic Eye Common normals: PERRL, EOMs intact bilaterally, conjunctivae normal and no scleral icterus Conjunctiva: conjunctiva(e) normal Pupil: PERRL Neck & C-Spine Common normals: no JVD Respiratory Common normals: normal respiratory effort, no use of accessory muscles and clear to auscultation bilaterally Effort & inspection: able to speak in complete sentences and symmetric chest movement Auscultation: clear to auscultation bilaterally Cardio Common normals: no JVD, regular rate, regular rhythm, S1 normal heart sound, S2 normal heart sound, no gallops, no clicks, no murmurs, no rub and peripheral pulses 2+ throughout Rate: regular rate Rhythm: regular rhythm Heart sounds: S1 normal and S2 normal Peripheral pulses: pulses 2+ throughout GI Common normals: Normal to inspection, nondistended, normoactive bowel sounds present, soft to palpation and non-tender Palpation: soft Bladder/kidney exam: bladder normal to palpation Extremity Common normals: normal to inspection (pt not moving Left arm - seemed to before - not sure if just being uncooper) General: edema (trace bilat insteps); no clubbing and no cyanosis Neuro Common normals: oriented x3 and CN's II-XII intact bilaterally Sensorium/orientation: awake Speech: speech normal Psych Common normals: mental status grossly normal and activity/motor behavior normal Appearance: grossly normal Attitude: uncooperative and belligerent DS: Data Data Completed and Pending Labs on day of discharge: Labs from last 24 hours 12/16/22 05:27 WBC 6.4 RBC 3.97 L Hgb 13.5 L Hct 41.5 L MCV 104.5 H MCH 34.0 MCHC 32.5 RDW 13.2 Plt Count 147 L MPV 9.9 Neut % (Auto) 43.1 Lymph % (Auto) 41.8 [place] % (Auto) 9.4 Eos % (Auto) 4.6 Baso % (Auto) 0.8 Neut # (Auto) 2.7 Lymph # (Auto) 2.7 [place] # (Auto) 0.6 Eos # (Auto) 0.3 Baso # (Auto) 0.1 Abs Immat Gran (auto) 0.02 Imm/Tot Granulo (auto) 0.3 Sodium 142 Potassium 3.8 Chloride 105 Carbon Dioxide 29.7 Anion Gap 11.1 BUN 9.0 Creatinine 0.68 L Est GFR ( Amer) >60 Est GFR (Non-Af Amer) >60 BUN/Creatinine Ratio 13.2 Glucose 106 Calcium 9.1 Total Bilirubin 0.6 AST 28 ALT 45 Alkaline Phosphatase 85 Total Protein 6.8 Albumin 3.1 L Globulin 3.7 Albumin/Globulin Ratio 0.8 Preliminary micro results at discharge 12/12/22 13:10 - Preliminary Blood Staphylococcus capitis 12/12/22 12:50 Blood Culture Result 1 - Preliminary Blood NO GROWTH AT 36-48 HOURS. FINAL TO FOLLOW. Discharge Plan Discharge Disposition: Xfer SNF Discharge Medications: New carvedilol 12.5 mg Tablet 12.5 mg PO BID Qty: 60 11RF tramadol 50 mg Tablet 50 mg PO Q6H PRN (Reason: Pain) Qty: 120 0RF magnesium oxide 400 mg (241.3 mg magnesium) Tablet 400 mg PO BID Qty: 60 11RF calcium carbonate 200 mg calcium (500 mg) Tablet,Chewable 500 mg PO ACHS Qty: 180 11RF nicotine 21 mg/24 hr Patch 24 Hour 1 patch topical Q24H PRN (Reason: Nicotine Cravings) Qty: 28 11RF Continued albuterol sulfate [Ventolin HFA] 90 mcg/actuation HFA aerosol inhaler 2 puff INHALATION Q4H PRN (Reason: shortness of breath or wheezing) Trelegy Ellipta 100-62.5-25 mcg blister with device 1 inh INHALATION DAILY Entresto 97-103 mg tablet 1 tab PO BID amitriptyline 50 mg tablet 50 mg PO .qhs Qty: 30 12RF pregabalin [Lyrica] 300 mg capsule 300 mg PO BID clonidine HCl 0.2 mg tablet 0.2 mg PO TID prednisone 10 mg tablet 10 mg PO DAILY alprazolam 0.5 mg Tablet 0.5 mg PO TID PRN (Reason: anxiety) Qty: 90 0RF Held hydrocodone-acetaminophen 5-325 mg Tablet 1 tab PO QID PRN (Reason: pain) Hold Instructions: Resume on 12/03/23. Discontinued carvedilol [Coreg] 6.25 mg tablet 6.25 mg PO BID Rx Instructions: must administer with a meal/food Forms: Portal Instructions Discharge Date/Time: 12/16/22 11:08
--- NOTE | 2022-12-16 10:44 | PC.NURSE ---
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
== END 2022-12-16 11:08 | DRG 948 ==
LOC: ER 14:39 → MS 16:38
PROVIDERS: Admitting Provider Family Medicine; Emergency Provider Emergency Medicine; PCP Family Medicine; Visit Provider Family Medicine
DX: R53.1 Weakness (principal); S32.512A Fracture of superior rim of left pubis, initial encounter for closed fracture; E44.1 Mild protein-calorie malnutrition; I42.9 Cardiomyopathy, unspecified; S32.592A Other specified fracture of left pubis, initial encounter for closed fracture; R41.82 Altered mental status, unspecified; D69.6 Thrombocytopenia, unspecified; D50.9 Iron deficiency anemia, unspecified; E83.51 Hypocalcemia; E87.6 Hypokalemia; J44.9 Chronic obstructive pulmonary disease, unspecified; K21.9 Gastro-esophageal reflux disease without esophagitis; I10 Essential (primary) hypertension; M54.9 Dorsalgia, unspecified; G89.29 Other chronic pain; G54.0 Brachial plexus disorders; F17.290 Nicotine dependence, other tobacco product, uncomplicated; Z91.81 History of falling; Z87.01 Personal history of pneumonia (recurrent); Z68.27 Body mass index [BMI] 27.0-27.9, adult; Z79.891 Long term (current) use of opiate analgesic; Z79.899 Other long term (current) drug therapy; I25.2 Old myocardial infarction; Z87.81 Personal history of (healed) traumatic fracture; W19.XXXA Unspecified fall, initial encounter; Y93.9 Activity, unspecified; Y92.9 Unspecified place or not applicable; Y99.9 Unspecified external cause status; Z82.3 Family history of stroke; Z80.9 Family history of malignant neoplasm, unspecified; Z82.5 Family history of asthma and other chronic lower respiratory diseases; Z82.49 Family history of ischemic heart disease and other diseases of the circulatory system
CPT/HCPCS: 36415; 51701; 51798; 70450; 70551; 71045; 72125; 72170; 72192; 80053; 80307; 80320; 81003; 82009; 82140; 82550; 82553; 82800; 82948; 83605; 83735; 83874; 83880; 84100; 84484; 85025; 85027; 85610; 85652; 85730; 86140; 87040; 87150; 93005; 94640; 94667; 94668; 94761; 96361; 96372; 96374; 96375; 96376; 97110; 97161; 97165; 97530; 97535; 99285; G0378; J1170